=== PATIENT | female | born 1940 | race Caucasian/White ===

== ENCOUNTER 2016-06-29 18:45 | Emergency (ER) | payer MEDICARE, BC ==
[~2016-06-29] VITALS: Ht 160 cm; Wt 72.6 kg
[~2016-06-29 18:45] MED LIST: SULF1TAB24 PO
[2016-06-29 19:58] VITALS: BP 179/88
[2016-06-29] MEDS ORDERED: SULF1TAB24 PO (20:28)
[2016-06-29] MEDS ORDERED: MUPI15CR TP (20:28)
--- NOTE | 2016-06-29 20:28 | PHYS DOC ---
Past Medical History Past Medical History: COPD Past Surgical History: No Surgical History Smoking: Quit Greater Than 1 Year Alcohol Use: Occasionally Drug Use: None Adult General Chief Complaint Chief Complaint: SKIN PROBLEM HPI HPI Patient is a 76 year old pina who presents with abscess and cellulitis of the left nasolabial fold for 4 days. She states that she was plucking a nose hair from the left nare and pinched the skin. A few days later, she noticed swelling of the nare that extended down onto the nasolabial fold. She denies any drainage from the wound. She has not had any fevers. Her PCP is Dr. Loomis. Review of Systems Review of Systems Constitutional: Denies fever or chills. [] Eyes: Denies change in visual acuity, redness, or eye pain. [] HENT: Denies ear pain, nasal congestion or sore throat. [] Integument: Reports nasal and nasolabial fold abscess and cellulitis. Allergies Allergies Allergies Coded Allergies Type Severity Reaction Last Updated Verified No Known Drug Allergies 10/05/15 No Physical Exam Physical Exam Constitutional: Well developed, well nourished, no acute distress, non-toxic appearance. [] HENT: Normocephalic, atraumatic, bilateral external ears normal, oropharynx moist, no oral exudates. There is mild edema of the left septum intranasally with abscess of the left nasolabial fold and surrounding cellulitis of the upper lip. Eyes: PERRLA, EOMI, conjunctiva normal, no discharge. [] Skin: Warm, dry. There is a 2cm abscess of the left nasolabial fold with surrounding erythema of the left upper lip. Neurologic: Alert and oriented X 3, normal motor function, normal sensory function, no focal deficits noted. [] Psychologic: Affect normal, judgement normal, mood normal. [] Current Patient Data Vital Signs Vital Signs Date Time Temp Pulse Resp B/P Pulse Ox O2 Delivery O2 Flow Rate FiO2 06/29/16 19:58 98.1 97 16 93 Room Air 98.1 EKG EKG [] Radiology/Procedures Radiology/Procedures [] Course & Med Decision Making Course & Med Decision Making Pertinent Labs and Imaging studies reviewed. (See chart for details) [] Dragon Disclaimer Dragon Disclaimer This electronic medical record was generated, in whole or in part, using a voice recognition dictation system. Departure Departure Impression: Primary Impression: Nasal abscess Disposition: 01 HOME, SELF-CARE Condition: STABLE Referrals: JOHN LOOMIS MD (PCP) Patient Instructions: Abscess, [id number] Additional Instructions: You were seen for an abscess of the nose. Please complete all the prescribed antibiotics, even if your wound is improving. Please use the prescribed antibiotic ointment on the wound and in the left nostril twice daily. Please follow-up with your primary care doctor in the next 2-3 days for recheck of the wound, sooner if concerns. Return to the emergency department if you have any new or concerning symptoms. Scripts Mupirocin Calcium (Bactroban Cream)15 Gm Cream..g.1 Danelle TP TID #30 GM Prov:KENTON HESS 06/29/16 Sulfamethoxazole/Trimethoprim (Bactrim Ds Tablet)1 Each Tablet1 Tab PO BID #14 TAB Prov:KENTON HESS 06/29/16 KENTON HESS Jun 29, 2016 20:28
== END 2016-06-29 20:34 | disposition home or self-care (01) ==
LOC: ER 18:45
DX: J34.0 Abscess, furuncle and carbuncle of nose (principal); J44.9 Chronic obstructive pulmonary disease, unspecified; Z87.891 Personal history of nicotine dependence
CPT/HCPCS: 99283

== ENCOUNTER → 2016-10-12 | Outpatient (CLI) | payer MEDICARE, BC ==
[~2016-10-12] MED LIST changes: +MUPI15CR TP
--- NOTE | 2016-10-12 14:57 | RAD ---
Chest, 2 views, 10/12/2016: History: Bronchitis, cough Comparison is made to a study from 10/14/2011. There is hyperexpansion of lungs compatible with COPD. The heart size is normal. There are scattered linear scars. There is a calcified granuloma posteriorly in the left base. There is a new spiculated density projected over the right infrahilar region on the PA view. This is not clearly visualized on the lateral view but probably lies in the right middle lobe. No pleural fluid is seen. IMPRESSION: 1. Emphysema. 2. New right infrahilar pulmonary opacity raising the possibility of a neoplasm versus focal pneumonitis. CT scanning is suggested for further evaluation.
== END | disposition home or self-care (01) ==
LOC: RAD 11:03
PROVIDERS: ATTEND Internal Medicine
DX: J43.9 Emphysema, unspecified (principal)
CPT/HCPCS: 71020

== ENCOUNTER 2016-10-17 09:57 | Inpatient (IN) | payer MEDICARE, BC ==
[~2016-10-17] VITALS: Ht 160 cm; Wt 72.3 kg
[2016-10-17] MEDS ORDERED: 0.9 % SODIUM CHLORIDE 10 ML DISP.SYRIN. IV PRN (10:00)
[2016-10-17] MEDS ORDERED: FUROSEMIDE 40 MG/4 ML VIAL. ONE (10:05)
[2016-10-17 10:14] LABS: BASO # 0.1 x10^3/uL (0.0-0.2); BASO % 1 % (0-3); EOS % 0 % (0-3); HEMATOCRIT 43.1 % (36.0-47.0); HEMOGLOBIN 14.6 g/dL (12.0-15.5); LYMPH % 5 % (24-48); MEAN CORPUSCULAR HEMOGLOBIN 33 pg (25-35); MEAN CORPUSCULAR HGB CONC 34 g/dL (31-37); MEAN CORPUSCULAR VOLUME 97 fL (79-100); MONO % 3 % (0-9); NEUT % 91 % (31-73); PLATELET COUNT 316 x10^3/uL (140-400); RED BLOOD COUNT 4.44 x10^6/uL (3.50-5.40); RED CELL DISTRIBUTION WIDTH 13.6 % (11.5-14.5); WHITE BLOOD COUNT 19.1 x10^3/uL (4.0-11.0)
[2016-10-17] MEDS ORDERED: NITROGLYCERIN SUBLINGUAL 0.4 MG BOTTLE OF 25. SL PRN (10:15)
[2016-10-17] MEDS ORDERED: IV NORMAL SALINE 1000ML BAG 1,000 ML IV SCH (10:15)
[2016-10-17] MEDS: fentaNYL PF VIAL 100 MCG/2 ML VIAL IV PRN ×2 (10:15→13:36)
[2016-10-17 10:24] LABS: CREATININE 0.9 mg/dL (0.6-1.0); GFR 61.2; POTASSIUM 4.3 mmol/L (3.5-5.1)
[2016-10-17] MEDS ORDERED: FUROSEMIDE 40 MG/4 ML VIAL. IVP ONE (10:30)
[2016-10-17 10:31] LABS: ALBUMIN 4.6 g/dL (3.4-5.0); DIRECT BILIRUBIN 0.1 mg/dL (0.0-0.2); MAGNESIUM 2.1 mg/dL (1.8-2.4); TOTAL BILIRUBIN 0.7 mg/dL (0.2-1.0); TOTAL PROTEIN 8.6 g/dL (6.4-8.2)
[2016-10-17 10:33] LABS: % BASOS 1 % (0-3); PLT ESTIMATE ADEQUATE (ADEQUATE)
--- NOTE | 2016-10-17 10:43 | RAD ---
Indication chest pain. Shortness of breath. A single view of the chest was obtained. Comparison is made to an examination 10/12/2016. The suggested possible mass or abnormality in the infrahilar region on the right, on the prior examination, is not well reproduced on this study. The heart and pulmonary vessels are normal. Acute parenchymal infiltrate is not seen. Significant pleural fluid is not present. There is no pneumothorax. IMPRESSION: No acute finding in the chest. Possible pathology in the right infrahilar region suggested on the plain film examination 5 days ago is not well represented on this single plain film
--- NOTE | 2016-10-17 10:56 | PHYS DOC ---
Past Medical History Past Medical History: COPD Past Surgical History: No Surgical History Alcohol Use: Occasionally Drug Use: None Adult General Chief Complaint Chief Complaint: SHORTNESS OF BREATH ESHA BALBUENA Is a pleasant 76-year-old female with a history of COPD who presents with sudden onset of right-sided chest pain and severe shortness of breath and anxiety that began about 4:30 AM this morning. Her symptoms got progressively worse and she is beginning to cough up sputum that is described as strongly with chest wall pain is worse with movement of her chest wall. She's never had anything like this before she is very anxious only providing a very limited history based on the pain. She speaking in 6-8 word sentences with no obvious retractions. She is satting in the mid 80s upon arrival she is tripoding and is very anxious. Differential diagnosis: Acute myocardial ischemia, heart failure, cardiac tamponade, bronchospasm, pulmonary embolism, pneumothorax, pulmonary infection i.e. bronchitis or pneumonia, upper airway obstruction, anaphylaxis, aspiration , psychogenic, pulmonary contusion, toxidrome, pneumomediastinum, noncardiogenic pulmonary edema or ARDS, COPD, tuberculosis, cystic fibrosis, asthma, high altitude pulmonary edema, valvular dysfunction, cardiac dysrhythmia , stroke, neuromuscular diseases like myasthenia gravis gravis, ALS, Guillain- Matt syndrome, metabolic acidosis to include diabetic ketoacidosis, sepsis, and obstructive disorders like massive obesity seen upon arrival given her lung sound on immediate evaluation I believe that she might of been suffering from congestive heart failure and may have benefited from BiPAP. Review of Systems Review of Systems Patient is unable to provide review of systems at this time given her medical condition. Current Medications Current Medications Current Medications Medications (Trade) Dose Ordered Sig/Bert Start Time Stop Time Status Last Admin Dose Admin Albuterol/ Ipratropium (Duoneb) 3 ml 1X ONCE 10/17/16 11:15 10/17/16 11:16 DC Azithromycin 250 ml @ 250 mls/hr 1X ONCE 10/17/16 11:00 10/17/16 11:59 DC 10/17/16 10:59 250 MLS/HR Ceftriaxone Sodium 50 ml @ 100 mls/hr 1X ONCE 10/17/16 11:00 10/17/16 11:29 DC Fentanyl Citrate (Fentanyl 2ml Vial) 50 mcg PRN Q15MIN PRN 10/17/16 10:00 10/18/16 09:59 8/6/17 10:15 50 MCG Furosemide (Lasix) 80 mg 1X ONCE 10/17/16 10:30 10/17/16 10:31 DC 10/17/16 10:14 80 MG Hydromorphone HCl (Dilaudid) 1 mg 1X ONCE 10/17/16 11:00 10/17/16 11:01 DC 10/17/16 11:00 1 MG Info (Do NOT chart on this entry -- for MONITORING) 1 each PRN DAILY PRN 10/17/16 11:45 10/19/16 11:44 Iohexol (Omnipaque 300 Mg/ml) 75 ml 1X ONCE 10/17/16 11:45 10/17/16 11:46 DC 10/17/16 11:43 75 ML Lorazepam (Ativan) 1 mg 1X ONCE 10/17/16 11:00 10/17/16 11:01 DC 10/17/16 10:59 1 MG Methylprednisolone Sodium Succinate (SOLU-Medrol 125MG VIAL) 125 mg 1X ONCE 10/17/16 11:15 10/17/16 11:16 DC 10/17/16 12:18 125 MG Nitroglycerin (Nitrostat) 0.4 mg PRN Q5MIN PRN 10/17/16 10:15 Sodium Chloride (Normal Saline Flush) 10 ml QSHIFT PRN 10/17/16 10:00 Allergies Allergies Allergies Coded Allergies Type Severity Reaction Last Updated Verified No Known Drug Allergies 10/05/15 No Physical Exam Physical Exam Signs evaluated patient very tachycardic, hypoxic and hypertensive. She is also very tachypnea greater than 24 and very anxious. Constitutional: Well developed, well nourished, is obviously acute distress with severe diaphoresis speaking in 6-8 word sentences are anxious. HENT: Normocephalic, atraumatic, bilateral external ears normal, dry mucous membranes no oral exudates, nose normal. [] Eyes: PERRLA, EOMI, conjunctiva normal, no discharge. [] Neck: Normal range of motion, no tenderness, supple, no stridor. [] Cardiovascular sinus tachycardia with no murmurs gallops or rubs. Lungs & Thorax: Significantly decreased breath sounds on the right and left described as coarse and crackly. She has no retractions or accessory muscle use. Abdomen: Bowel sounds normal, soft, no tenderness, no masses, no pulsatile masses. [] Skin: Warm, skin is very diaphoretic no erythema no rash. Back: No tenderness, no CVA tenderness. [] Extremities: No tenderness, no cyanosis, no clubbing, ROM intact, no edema. No Homans sign. Neurologic: Alert and oriented X 3, normal motor function, normal sensory function, no focal deficits noted. [] Psychologic: Is very anxious she is asking for pain meds repeatedly. Current Patient Data Vital Signs Vital Signs Date Time Temp Pulse Resp B/P (MAP) Pulse Ox O2 Delivery O2 Flow Rate FiO2 10/17/16 11:00 34 10/17/16 10:25 95 BiPAP/CPAP 10/17/16 09:57 98.1 127 138/71 (93) 2.0 98.1 Lab Values Laboratory Tests Test 10/17/16 10:07 White Blood Count 19.1 x10^3/uL (4.0-11.0) H Red Blood Count 4.44 x10^6/uL (3.50-5.40) Hemoglobin 14.6 g/dL (12.0-15.5) Hematocrit 43.1 % (36.0-47.0) Mean Corpuscular Volume 97 fL (79-100) Mean Corpuscular Hemoglobin 33 pg (25-35) Mean Corpuscular Hemoglobin Concent 34 g/dL (31-37) Red Cell Distribution Width 13.6 % (11.5-14.5) Platelet Count 316 x10^3/uL (140-400) Neutrophils (%) (Auto) 91 % (31-73) H Lymphocytes (%) (Auto) 5 % (24-48) L Monocytes (%) (Auto) 3 % (0-9) Eosinophils (%) (Auto) 0 % (0-3) Basophils (%) (Auto) 1 % (0-3) Neutrophils # (Auto) 17.4 x10^3uL (1.8-7.7) H Lymphocytes # (Auto) 1.0 x10^3/uL (1.0-4.8) Monocytes # (Auto) 0.5 x10^3/uL (0.0-1.1) Eosinophils # (Auto) 0.1 x10^3/uL (0.0-0.7) Basophils # (Auto) 0.1 x10^3/uL (0.0-0.2) Segmented Neutrophils % 73 % (35-66) H Band Neutrophils % 18 % (0-9) H Lymphocytes % 2 % (24-48) L Monocytes % 5 % (0-10) Basophils % 1 % (0-3) Metamyelocytes % 1 % (0-0) H Platelet Estimate Adequate (ADEQUATE) Sodium Level 140 mmol/L (136-145) Potassium Level 4.3 mmol/L (3.5-5.1) Chloride Level 101 mmol/L (98-107) Carbon Dioxide Level 31 mmol/L (21-32) Anion Gap 8 (6-14) Blood Urea Nitrogen 15 mg/dL (7-20) Creatinine 0.9 mg/dL (0.6-1.0) Estimated GFR (Cockcroft-Gault) 61.2 Glucose Level 113 mg/dL (70-99) H Calcium Level 9.0 mg/dL (8.5-10.1) Magnesium Level 2.1 mg/dL (1.8-2.4) Total Bilirubin 0.7 mg/dL (0.2-1.0) Direct Bilirubin 0.1 mg/dL (0.0-0.2) Aspartate Amino Transferase (AST) 25 U/L (15-37) Alanine Aminotransferase (ALT) 35 U/L (14-59) Alkaline Phosphatase 62 U/L (46-116) Creatine Kinase 173 U/L (26-192) Creatine Kinase MB (Mass) 1.0 ng/mL (0.0-3.6) Creatine Kinase MB Relative Index 0.6 % (0-4) Troponin I Quantitative < 0.017 ng/mL (0.000-0.055) GW-Khj-G-Type Natriuretic Peptide 366 pg/mL (0-124) H Total Protein 8.6 g/dL (6.4-8.2) H Albumin 4.6 g/dL (3.4-5.0) Lipase 79 U/L (73-393) Thyroid Stimulating Hormone (TSH) 2.134 uIU/mL (0.358-3.74) Laboratory Tests 10/17/16 10:07 Laboratory Tests 10/17/16 10:07 EKG EKG [] EKG timed 10:[address] Hahn demonstrates heart rate of 121 normal sinus rhythm tachycardia with left atrial enlargement based on P wave morphology. Patient's GA interval is normal at 96 patient's QRS width is normal at 76 patient's QTc is normal at 443. This is an otherwise normal EKG with no ischemic changes Radiology/Procedures Radiology/Procedures [] [facility] [address] [place], [place] [id number] IMAGING REPORT Signed PATIENT: CHRISS MUKHERJEE ACCOUNT: [id number] : 1940 LOCATION: ER AGE: 76 SEX: F EXAM STATUS: PRE ER ORD. PHYSICIAN: SIMEON HAHN MD REASON: chest pain PROCEDURE: PORTABLE CHEST 1V Indication chest pain. Shortness of breath. A single view of the chest was obtained. Comparison is made to an examination 10/12/2016. The suggested possible mass or abnormality in the infrahilar region on the right, on the prior examination, is not well reproduced on this study. The heart and pulmonary vessels are normal. Acute parenchymal infiltrate is not seen. Significant pleural fluid is not present. There is no pneumothorax. IMPRESSION: No acute finding in the chest. Possible pathology in the right infrahilar region suggested on the plain film examination 5 days ago is not well represented on this single plain film DICTATED and SIGNED BY: ANGY LAMBERT MD DATE: 10/17/16 1038 CC: SIMEON HAHN MD; MANDIE HACKETT MD ~ [address] [place] [address] IMAGING REPORT Signed PATIENT: CHRISS MUKHERJEE ACCOUNT: [id number] : 1940 LOCATION: ER AGE: 76 SEX: F EXAM STATUS: REG ER ORD. PHYSICIAN: SIMEON HAHN MD REASON: chest pain with ?? mass versus infiltrate PROCEDURE: CT ANGIOGRAPHY CHEST Indication chest pain. Shortness of breath. Axial images were obtained through the chest. Examination was to be tailored for the detection of pulmonary embolus. Note is made of a previous noncontrast examination 02/15/2013. 75 cc of Omnipaque 300 was administered intravenously. MIP images were generated and reviewed. Imaging through the upper abdomen is unremarkable. The thoracic aorta appears normal. There is no significant hilar or mediastinal adenopathy. The study is negative for pulmonary embolus. There is pathology in the right middle lobe compatible with that seen on the plain film examination 10/12/2026. The appearance is most compatible with scarring or atelectasis although an acute inflammatory component is not entirely excluded. There are several air bronchograms running through the process and neoplastic disease is felt unlikely but follow-up imaging is advised. There is, additionally, an infiltrate, suspect for pneumonia, in the right lower lobe. There are some underlying emphysematous changes. There is some scarring in the right upper lobe similar to the previous CT examination 02/15/2013. Some scarring is present in the right lower lobe. There is a densely calcified granuloma at the left lung base. A dominant soft tissue mass in either lung is not seen. IMPRESSION: Negative study for pulmonary embolus. The abnormality in the right hemithorax seen on the examination 10/12/2016 is likely a function of chronic scarring or atelectasis although an acute inflammatory component in the right middle lobe is not entirely excluded. The appearance would be very atypical for neoplastic disease. Continued follow-up advised. Underlying emphysematous changes. Patchy infiltrate in the right lower lobe suspect for pneumonia. PQRS Compliance Statement: One or more of the following individualized dose reduction techniques were utilized for this examination: 1. Automated exposure control 2. Adjustment of the mA and/or kV according to patient size 3. Use of iterative reconstruction technique DICTATED and SIGNED BY: ANGY LAMBERT MD DATE: 10/17/16 1214 CC: SIMEON HAHN MD; MANDIE HACKETT MD ~ Course & Med Decision Making Course & Med Decision Making Pertinent Labs and Imaging studies reviewed. (See chart for details) Initially presented with shortness of breath or severe chest wall pain after coughing and Hypoxia. She has a history of COPD without history of congestive heart failure or heart disease. Patient's breath sounds initially on the right wrist diminished with significant rhonchi and crackles. My initial assessment was possible congestive heart failure on the left side with no evidence of right -sided heart failure. Patient was immediately treated with Solu-Medrol and DuoNeb's as well as given Ativan and fentanyl for her pain and anxiety. She is placed initially on BiPAP. ABG was completed at 10:33 AM respiratory therapy times his speech is 7.37 PCO2 43 PO2 95 bicarbonate 24 base excess of -0.8 saturations of 97% on oxygen provided to the BiPAP machine. Is now 10:45 AM She continues to be short of breath and very anxious will be giving another dose of Dilaudid and Ativan. Patient's chest x-ray reviewed by me demonstrates questionable infiltrate in the right lower and middle lungs which may either represent cephalization or infection. There is no obvious signs of pneumothorax or rib fracture. He was reviewed and reread by radiology. Given the findings there and her acute shortness of breath I will complete a CAT scan of the chest. Differential diagnosis is now in excluding pneumothorax, pneumonitis, perforated abdomen. I will complete a CT of the chest to rule out infiltrate versus COPD exacerbation. We have prepared to intubate this patient and she is given his permission if necessary if she because in respiratory failure. Does demonstrate a white count of 19,000 with left shift which likely indicative of either stress or possible infection the lung. She will have blood cultures and appropriate antibiotics initiated at this time as well as lactic acid. Patient tells me that their symptoms given during CC are improved. We reviewed labs and radiology reports with patient and any family at bedside. She is asleep at this time feeling markedly better satting 98% on 2 L nasal cannula was pleuritic chest pain his arms completely resolved and she is listener comfortably reading it all times a minute. [employer] note: Primary care doctor [employer] called at of the service called at 12:42 PM Consult called back at 12:46 PM Discussed the case I presented and they agreed with admission. Time of acceptance of 12:46 AM Differential diagnosis: Acute myocardial ischemia, heart failure, cardiac tamponade, bronchospasm, pulmonary embolism, pneumothorax, pulmonary infection i.e. bronchitis or pneumonia, upper airway obstruction, anaphylaxis, aspiration , psychogenic, pulmonary contusion, toxidrome, pneumomediastinum, noncardiogenic pulmonary edema or ARDS, COPD, tuberculosis, cystic fibrosis, asthma, high altitude pulmonary edema, valvular dysfunction, cardiac dysrhythmia , stroke, neuromuscular diseases like myasthenia gravis gravis, ALS, Guillain- Matt syndrome, metabolic acidosis to include diabetic ketoacidosis, sepsis, and obstructive disorders like massive obesity. Upon arrival given patient's agitation and hypoxia my concern was hypoxia causing encephalopathy or acute psychosis secondary to hypoxia. Patient's symptoms markedly improved with above interventions. She is received antibiotics and repeat supportive medications to treat her suspected pneumonia. Although her pro BNP is mildly elevated troponin is negative. She is lactic acid is still pending at this time although she was received appropriate therapy including fluids and antibiotics. I spent approximately 45-50 minutes working and engaged directly in the patient care providing critical care evaluation this includes but not limited to time spent engaged in work directly related to the individual patients care. I spent time at the bedside, reviewing test results, discussing the case with staff, documenting the medical record and time spent with EMS discussing specific treatment issues when the patient presented and during his evaluation. Impression: COPD exacerbation, pleuritic chest pain, pneumonia, hypoxia, anxiety leukocytosis Dragon Disclaimer Dragon Disclaimer This electronic medical record was generated, in whole or in part, using a voice recognition dictation system. Departure Departure Impression: Primary Impression: Chest pain Additional Impressions: COPD (chronic obstructive pulmonary disease) Anxiety Hypoxia Pneumonia Disposition: ADMITTED INPATIENT Admitting Physician: Mandie Hackett Condition: GUARDED Referrals: MANDIE HACKETT MD (PCP) Problem Qualifiers SIMEON HAHN MD Oct 17, 2016 10:56
[2016-10-17] MEDS ORDERED: AZITHRMYCN 500MG IVPB FOR OMNI 250 ML IV ONE (11:00)
[2016-10-17] MEDS ORDERED: HYDROmorphone 2 MG/ML VIAL IV ONE (11:00)
[2016-10-17] MEDS ORDERED: IPRATRPIUM/ALBUTEROL 0.5/2.5MG 3 ML NEBU. NEB ONE (11:15)
[2016-10-17] MEDS ORDERED: methylPREDNISolone SOD SUCC PF 125 MG/2 ML VIAL. IV ONE (11:15)
[2016-10-17] MEDS ORDERED: CONTRAST GIVEN MC PRN (11:45)
[2016-10-17] MEDS ORDERED: IOHEXOL 300 MG/ML 75 ML VIAL IV ONE (11:45)
--- NOTE | 2016-10-17 11:47 | EKG ---
[facility] [address] [place] [address] Test Date: 2016-10-17 Test Time: 10:07:32 Pat Name: CHRISS MUKHERJEE Department: Room: Gender: F Nut Former: : 1940 Requested By: SIMEON HAHN Order Number: [id number] Reading MD: Brenden Sainz Measurements Intervals [place] Rate: 121 P: 55 [place]: 96 QRS: 66 QRSD: 76 T: 47 QT: 310 QTc: 443 Interpretive Statements SINUS TACHYCARDIA LEFT ATRIAL ABNORMALITY RI6.01 Unconfirmed report Compared to ECG 10/14/2011 11:55:23 Atrial abnormality now present Sinus rhythm no longer present Electronically Signed On 10-17-2016 13:26:56 CDT by Brenden Sainz
--- NOTE | 2016-10-17 12:28 | RAD ---
Indication chest pain. Shortness of breath. Axial images were obtained through the chest. Examination was to be tailored for the detection of pulmonary embolus. Note is made of a previous noncontrast examination 02/15/2013. 75 cc of Omnipaque 300 was administered intravenously. MIP images were generated and reviewed. Imaging through the upper abdomen is unremarkable. The thoracic aorta appears normal. There is no significant hilar or mediastinal adenopathy. The study is negative for pulmonary embolus. There is pathology in the right middle lobe compatible with that seen on the plain film examination 10/12/2026. The appearance is most compatible with scarring or atelectasis although an acute inflammatory component is not entirely excluded. There are several air bronchograms running through the process and neoplastic disease is felt unlikely but follow-up imaging is advised. There is, additionally, an infiltrate, suspect for pneumonia, in the right lower lobe. There are some underlying emphysematous changes. There is some scarring in the right upper lobe similar to the previous CT examination 02/15/2013. Some scarring is present in the right lower lobe. There is a densely calcified granuloma at the left lung base. A dominant soft tissue mass in either lung is not seen. IMPRESSION: Negative study for pulmonary embolus. The abnormality in the right hemithorax seen on the examination 10/12/2016 is likely a function of chronic scarring or atelectasis although an acute inflammatory component in the right middle lobe is not entirely excluded. The appearance would be very atypical for neoplastic disease. Continued follow-up advised. Underlying emphysematous changes. Patchy infiltrate in the right lower lobe suspect for pneumonia. PQRS Compliance Statement: One or more of the following individualized dose reduction techniques were utilized for this examination: 1. Automated exposure control 2. Adjustment of the mA and/or kV according to patient size 3. Use of iterative reconstruction technique
[2016-10-17] MEDS ORDERED: ACETAMINOPHEN 325 MG TABLET. PO PRN (13:00)
[2016-10-17] MEDS ORDERED: IV NORMAL SALINE 1000ML BAG 1,000 ML IV ONE (13:00)
[2016-10-17] MEDS ORDERED: ONDANSETRON PF 4 MG/2 ML VIAL. IV PRN (13:00)
[2016-10-17 13:14] LABS: BILIRUBIN,URINE NEGATIVE (NEG); GLUCOSE,URINE NEGATIVE (NEG); NITRITE,URINE NEGATIVE (NEG); PROTEIN,URINE NEGATIVE (NEG-TRACE); UROBILINOGEN,URINE 0.2 mg/dL (0.2 mg/dL)
[2016-10-17 13:25] LABS: BACTERIA,URINE FEW /HPF (0-FEW); RBC,URINE 0 /HPF (0-2)
[2016-10-17 15:00] VITALS: BP 121/68
[2016-10-17] MEDS: MORPHINE SULFATE 4 MG/ML DISP.SYRIN. IV PRN ×3 (15:03→22:49)
--- NOTE | 2016-10-17 15:24 | PDOC ---
Provider Note Provider Note Pt seen .H&P dictated. #[id number] JOHN HACKETT MD Oct 17, 2016 15:24
[2016-10-17] MEDS ORDERED: ALBUTEROL SULFATE 2.5 MG/3 ML NEBU. NEB PRN (15:30)
[2016-10-17] MEDS: HYDROcodone/APAP 10/325 1 TAB TABLET PO PRN (16:08)
[2016-10-17] MEDS: methylPREDNISolone SOD SUCC PF 125 MG/2 ML VIAL. IV SCH ×2 (16:08→21:15)
[2016-10-17] MEDS: IV NORMAL SALINE 1000ML BAG 1,000 ML IV SCH ×2 (16:09→22:53)
[2016-10-17] MEDS: IPRATRPIUM/ALBUTEROL 0.5/2.5MG 3 ML NEBU. NEB SCH ×2 (16:12→19:18)
--- NOTE | 2016-10-17 16:16 | HP ---
ADMIT DATE: 10/17/2016 LOCATION: #258. REASON FOR ADMISSION TO THE HOSPITAL: Shortness of breath, pneumonia. HISTORY OF PRESENT ILLNESS: The patient is a 76-year-old female patient, well-known to me, who has chronic COPD on inhalers and she was in the hospital probably 5 years ago with major pneumonia. Otherwise, she gets sick once or twice with bronchitis, and she was doing relatively well until yesterday. She went out with her daughter. She was fine, and this morning, she woke up with feeling lousy, cough, and shortness of breath as well as pain in the right side of the chest and came to the Emergency Room, where she was found to have pneumonia with rt side pleurisy and was admitted to the hospital. White count went up to 18,000 and was given antibiotics and was admitted to the hospital. PAST MEDICAL HISTORY: History of COPD, osteoporosis, anxiety, and depression. PAST SURGICAL HISTORY: History of pneumonia 5 years ago. SURGERIES: No major surgeries. ALLERGIES: No known drug allergies. MEDICATIONS: At home, she is on Ventolin, Symbicort, calcium with vitamin D, Actonel, and also on Lipitor for cholesterol. PERSONAL HISTORY: Smoked for probably 50 years, quit 5 years ago. Denies alcohol or drug abuse. SOCIAL HISTORY: Lives at home, very active. Her sister recently . REVIEW OF SYSTEMS: As mentioned; however has been feeling well until yesterday. This morning, has cough, wheezing pain, and does not feel good. PHYSICAL EXAMINATION: GENERAL: The patient looks sicker and ill. VITAL SIGNS: Temperature 98, pulse 127, respirations 34, blood pressure 138/71, and 92% nasal cannula. Was placed on BiPAP for a short period. HEENT: Head is atraumatic. Pupils equal. Oral cavity with slight congestion Dentures present. NECK: Supple. Thyroid not enlarged, not elevated. CHEST: Symmetrical. Bilateral wheezing anterior and posterior lungs, both inspiratory and expiratory. ABDOMEN: Soft, no mass palpable. EXTERNAL GENITALIA: No Gomez. RECTAL: Deferred. EXTREMITIES: No calf tenderness, no edema. NEUROLOGIC: Cranial nerves are intact. Power 5/5 in the extremities. LABORATORY DATA: Shows a white count of 19, hemoglobin 14, and platelets 316. Electrolytes show sodium 140, potassium 4.3, chloride 101, bicarbonate 31, BUN 15, creatinine 0.1, glucose 113, and lactic acid 2.1. LFTs were normal. Troponin 0.017. TSH was normal. Lipase 79. Chest x-ray - no acute findings, possible infiltrates in the right lung. CT angiogram of the chest shows negative for PE, chronic scarring, right middle lobe infiltrates, underlying emphysema in the right lower lobe, suspect pneumonia. FINAL IMPRESSION: 1. Community-acquired pneumonia. 2. Chronic obstructive pulmonary disease with acute exacerbation. 3. History of smoking for many years, quit 5 years ago. 4. Anxiety. 5. Depression. 6. Hyperlipidemia. 7. Sepsis with lactic acidosis PLAN: At this time, admit to hospital, sputum culture, blood culture, started on broad-spectrum Zithromax and Rocephin. Pulmonary consult, IV Solu-Medrol, IV fluids, DuoNeb 4 times daily, and resume home medications and see how the patient's condition improves. DVT prevention with SCDs and Lovenox. JOHN HACKETT MD DR: SHRUTHI/zander JOB#: [id number] / [id number] SHANIQUA
[2016-10-17 18:41] VITALS: BP 121/68
[2016-10-17] MEDS ORDERED: ALPR0.25 PO (19:12)
[2016-10-17] MEDS ORDERED: SIMV40TA3 PO (19:29)
[2016-10-17] MEDS ORDERED: PNV1TABL25 PO (19:29)
[2016-10-17] MEDS ORDERED: CALC-77 PO (19:29)
[2016-10-17] MEDS ORDERED: ACET325T9 PO (19:29)
[2016-10-17] MEDS ORDERED: DIPH25CA58 PO (19:29)
[2016-10-17 19:30] VITALS: BP 126/69
[2016-10-17] MEDS ORDERED: PROAIR HFA8.5 GM INH (19:31)
[2016-10-17] MEDS ORDERED: HYDR-2758 PO (19:31)
[2016-10-17] MEDS: ENOXAPARIN 40 MG/0.4 ML SYRINGE. SQ SCH (21:15)
[2016-10-17 22:47] VITALS: BP 109/62
[2016-10-18] MEDS: fentaNYL PF VIAL 100 MCG/2 ML VIAL IV PRN (00:50)
[2016-10-18] MEDS ORDERED: diphenhydrAMINE HCL 25 MG CAPSULE PO PRN (01:15)
[2016-10-18] MEDS ORDERED: SODIUM CHLORIDE 0.65% NASAL SPRAY 45ML BOTTLE. NS PRN (01:15)
[2016-10-18] MEDS: ALPRAZolam 0.25 MG TABLET PO PRN ×3 (01:22→17:25)
[2016-10-18 03:30] VITALS: BP 115/71
[2016-10-18 04:46] LABS: BASO # 0.2 x10^3/uL (0.0-0.2); BASO % 1 % (0-3); EOS % 0 % (0-3); HEMATOCRIT 34.1 % (36.0-47.0); HEMOGLOBIN 11.2 g/dL (12.0-15.5); LYMPH # 0.8 x10^3/uL (1.0-4.8); LYMPH % 3 % (24-48); MEAN CORPUSCULAR HEMOGLOBIN 33 pg (25-35); MEAN CORPUSCULAR HGB CONC 33 g/dL (31-37); MEAN CORPUSCULAR VOLUME 99 fL (79-100); MONO % 2 % (0-9); NEUT % 94 % (31-73); PLATELET COUNT 238 x10^3/uL (140-400); RED BLOOD COUNT 3.45 x10^6/uL (3.50-5.40); RED CELL DISTRIBUTION WIDTH 13.8 % (11.5-14.5); WHITE BLOOD COUNT 22.8 x10^3/uL (4.0-11.0)
[2016-10-18 05:01] LABS: CALCIUM 8.3 mg/dL (8.5-10.1); CREATININE 0.7 mg/dL (0.6-1.0); GFR 81.8; POTASSIUM 3.9 mmol/L (3.5-5.1)
[2016-10-18 05:02] LABS: CHOLESTEROL/HDL RATIO 1.9
[2016-10-18] MEDS: methylPREDNISolone SOD SUCC PF 125 MG/2 ML VIAL. IV SCH ×2 (05:40→20:54)
[2016-10-18] MEDS: MORPHINE SULFATE 4 MG/ML DISP.SYRIN. IV PRN ×3 (05:50→11:23)
[2016-10-18] MEDS: IPRATRPIUM/ALBUTEROL 0.5/2.5MG 3 ML NEBU. NEB SCH ×4 (06:07→19:57)
[2016-10-18] MEDS: HYDROcodone/APAP 10/325 1 TAB TABLET PO PRN ×3 (06:08→19:55)
[2016-10-18 07:00] VITALS: BP 122/73
--- NOTE | 2016-10-18 10:32 | PDOC ---
PROGRESS NOTES Subjective Subjective feeling much better today Objective Objective Vital Signs Date Time Temp Pulse Resp B/P (MAP) Pulse Ox O2 Delivery O2 Flow Rate FiO2 10/18/16 08:36 95 Nasal Cannula 3.0 10/18/16 08:06 22 10/18/16 07:00 97.7 94 122/73 (89) 97.7 Intake and Output 10/18/16 07:00 Intake Total 1550 ml Output Total 1700 ml Balance -150 ml Intake Oral 150 ml IV Total 1300 ml Other 100 ml Output Urine Total 1700 ml # Voids 1 Physical Exam Abdomen: Normal bowel sounds, Soft Heart: Regular rate, Normal S1, Normal S2 Extremities: No clubbing General: Alert HEENT: Atraumatic Lungs: Other (wheezing rt lung) Neck: Supple Neuro: Normal speech Psych/Mental Status: Mental status NL Skin: No breakdown Diagnosis Problem List Problems Medical Problems: (1) Anxiety Status: Acute (2) Chest pain Status: Acute (3) COPD (chronic obstructive pulmonary disease) Status: Acute (4) Hypoxia Status: Acute (5) Pneumonia Status: Acute Assessment Assessment Problems Medical Problems: (1) Anxiety Status: Acute (2) Chest pain Status: Acute (3) COPD (chronic obstructive pulmonary disease) Status: Acute (4) Hypoxia Status: Acute (5) Pneumonia Status: Acute FINAL IMPRESSION: 1. Community-acquired pneumonia. 2. Chronic obstructive pulmonary disease with acute exacerbation. 3. History of smoking for many years, quit 5 years ago. 4. Anxiety. 5. Depression. 6. Hyperlipidemia. 7. Sepsis with lactic acidosis PLAN: clinically improving. repeat cxr today. sputum gram neg. IV antibiotics. duoneb qid+prn. At this time, admit to hospital, sputum culture, blood culture, started on broad-spectrum Zithromax and Rocephin. Pulmonary consult, IV Solu-Medrol, IV fluids, DuoNeb 4 times daily, and resume home medications and see how the patient's condition improves. DVT prevention with SCDs and Lovenox. Problems: Plan Plan of Care Problems Medical Problems: (1) Anxiety Status: Acute (2) Chest pain Status: Acute (3) COPD (chronic obstructive pulmonary disease) Status: Acute (4) Hypoxia Status: Acute (5) Pneumonia Status: Acute Comment Review of Relevant I have reviewed the following items loree (where applicable) has been applied. Labs Laboratory Tests Test 10/17/16 13:04 10/17/16 13:49 10/17/16 19:10 10/18/16 00:40 Urine Collection Type Unknown Urine Color Yellow Urine Clarity Clear Urine pH 6.0 Urine Specific Dauphin 1.020 Urine Protein Negative mg/dL (NEG-TRACE) Urine Glucose (UA) Negative mg/dL (NEG) Urine Ketones (Stick) Negative mg/dL (NEG) Urine Blood Negative (NEG) Urine Nitrite Negative (NEG) Urine Bilirubin Negative (NEG) Urine Urobilinogen Dipstick 0.2 mg/dL (0.2 mg/dL) Urine Leukocyte Esterase Small (NEG) Urine RBC 0 /HPF (0-2) Urine WBC 5-10 /HPF (0-4) Urine Bacteria Few /HPF (0-FEW) Urine Hyaline Casts Few /HPF Urine Mucus Slight /LPF Lactic Acid Level 2.1 mmol/L (0.4-2.0) Troponin I Quantitative < 0.017 ng/mL (0.000-0.055) < 0.017 ng/mL (0.000-0.055) Thyroid Stimulating Hormone (TSH) 0.691 uIU/mL (0.358-3.74) Test 10/18/16 04:35 White Blood Count 22.8 x10^3/uL (4.0-11.0) Red Blood Count 3.45 x10^6/uL (3.50-5.40) Hemoglobin 11.2 g/dL (12.0-15.5) Hematocrit 34.1 % (36.0-47.0) Mean Corpuscular Volume 99 fL (79-100) Mean Corpuscular Hemoglobin 33 pg (25-35) Mean Corpuscular Hemoglobin Concent 33 g/dL (31-37) Red Cell Distribution Width 13.8 % (11.5-14.5) Platelet Count 238 x10^3/uL (140-400) Neutrophils (%) (Auto) 94 % (31-73) Lymphocytes (%) (Auto) 3 % (24-48) Monocytes (%) (Auto) 2 % (0-9) Eosinophils (%) (Auto) 0 % (0-3) Basophils (%) (Auto) 1 % (0-3) Neutrophils # (Auto) 21.5 x10^3uL (1.8-7.7) Lymphocytes # (Auto) 0.8 x10^3/uL (1.0-4.8) Monocytes # (Auto) 0.4 x10^3/uL (0.0-1.1) Eosinophils # (Auto) 0.0 x10^3/uL (0.0-0.7) Basophils # (Auto) 0.2 x10^3/uL (0.0-0.2) Sodium Level 142 mmol/L (136-145) Potassium Level 3.9 mmol/L (3.5-5.1) Chloride Level 105 mmol/L (98-107) Carbon Dioxide Level 29 mmol/L (21-32) Anion Gap 8 (6-14) Blood Urea Nitrogen 13 mg/dL (7-20) Creatinine 0.7 mg/dL (0.6-1.0) Estimated GFR (Cockcroft-Gault) 81.8 Glucose Level 175 mg/dL (70-99) Lactic Acid Level 1.7 mmol/L (0.4-2.0) Calcium Level 8.3 mg/dL (8.5-10.1) Triglycerides Level 50 mg/dL (0-150) Cholesterol Level 145 mg/dL (0-200) LDL Cholesterol, Calculated 57 mg/dL (0-100) VLDL Cholesterol, Calculated 10 mg/dL (0-40) Non-HDL Cholesterol Calculated 67 mg/dL (0-129) HDL Cholesterol 78 mg/dL (40-60) Cholesterol/HDL Ratio 1.9 Thyroid Stimulating Hormone (TSH) 0.683 uIU/mL (0.358-3.74) Medications Current Medications Acetaminophen (Tylenol) 650 mg PRN Q4HRS PRN PO FEVER Last administered on 15:02; Start 10/17/16 at 13:00; Stop 10/18/16 at 12:59 Acetaminophen/ Hydrocodone Bitart (Lortab 10325) 1 tab PRN Q6HRS PRN PO PAIN Last administered on 10/18/16 06:08; Start 10/17/16 at 15:15 Albuterol Sulfate (Ventolin Neb Soln) 2.5 mg PRN QID PRN NEB WHEEZING; Start at 15:30 Albuterol/ Ipratropium (Duoneb) 3 ml 1X ONCE NEB ; Start 10/17/16 at 11:15; Stop 10/17/16 at 11:16; Status DC Albuterol/ Ipratropium (Duoneb) 3 ml RTQID NEB Last administered on 10/18/16 06 :07; Start 10/17/16 at 16:00; Stop 10/18/16 at 15:59 Alprazolam (Xanax) 0.25 mg PRN Q8HRS PRN PO ANXIETY / AGITATION Last administered on 10/18/16 09:26; Start 10/18/16 at 01:15 Azithromycin 250 ml @ 250 mls/hr 1X ONCE IV Last administered on 10/17/16 10: 59; Start 10/17/16 at 11:00; Stop 10/17/16 at 11:59; Status DC Azithromycin 500 mg/Sodium Chloride 250 ml @ 250 mls/hr Q24H IV ; Start at 12:00 Ceftriaxone Sodium 1 gm/ Sodium Chloride 50 ml @ 100 mls/hr Q24H IV ; Start 10/18/16 at 12:00 Ceftriaxone Sodium 50 ml @ 100 mls/hr 1X ONCE IV Last administered on 12:58; Start 10/17/16 at 11:00; Stop 10/17/16 at 11:29; Status DC Diphenhydramine HCl (Benadryl) 25 mg PRN QHS PRN PO INSOMNIA Last administered on 10/18/16 01:22; Start 10/18/16 at 01:15 Enoxaparin Sodium (Lovenox 40mg Syringe) 40 mg Q24H SQ Last administered on 10/17 21:15; Start 10/17/16 at 21:00 Hydromorphone HCl (Dilaudid) 1 mg 1X ONCE IV Last administered on 10/17/16 11: 00; Start 10/17/16 at 11:00; Stop 10/17/16 at 11:01; Status DC Info (Do NOT chart on this entry -- for MONITORING) 1 each PRN DAILY PRN MC SEE COMMENTS; Start 10/17/16 at 11:45; Stop 10/19/16 at 11:44 Iohexol (Omnipaque 300 Mg/ml) 75 ml 1X ONCE IV Last administered on 10/17/16 11:43; Start 10/17/16 at 11:45; Stop 10/17/16 at 11:46; Status DC Lorazepam (Ativan) 1 mg 1X ONCE IV Last administered on 10/17/16 10:59; Start 10/17/16 at 11:00; Stop 10/17/16 at 11:01; Status DC Methylprednisolone Sodium Succinate (SOLU-Medrol 125MG VIAL) 125 mg 1X ONCE IV Last administered on 10/17/16 12:18; Start 10/17/16 at 11:15; Stop 10/17/16 at 11:16; Status DC Methylprednisolone Sodium Succinate (SOLU-Medrol 125MG VIAL) 125 mg Q8HRS IV Last administered on 10/18/16 05:40; Start 10/17/16 at 15:15 Morphine Sulfate 2 mg PRN Q1HR PRN IV PAIN; Start 10/17/16 at 17:45 Morphine Sulfate 4 mg PRN Q2HR PRN IV PAIN Last administered on 10/18/16 08:06 ; Start 10/17/16 at 13:00; Stop 10/18/16 at 12:59 Ondansetron HCl (Zofran) 4 mg PRN Q8HRS PRN IV NAUSEA/VOMITING; Start 10/17/16 at 13:00; Stop 10/18/16 at 12:59 Sodium Chloride 1,000 ml @ 100 mls/hr Q10H IV Last administered on 10/17/16 22 :53; Start 10/17/16 at 16:00 Sodium Chloride 1,000 ml @ 1,000 mls/hr 1X ONCE IV Last administered on 12:59; Start 10/17/16 at 13:00; Stop 10/17/16 at 13:59; Status DC Sodium Chloride (Saline Mist Nasal) 1 yong PRN Q1HR PRN NS NASAL CONGESTION Last administered on 10/18/16 01:22; Start 10/18/16 at 01:15 Vitals/I & O Vital Sign - Last 24 Hours 10/17/16 10/17/16 10/17/16 10/17/16 10:45 11:00 11:00 11:15 Pulse 114 116 104 Resp 34 34 36 17 B/P (MAP) 125/58 (80) 95/57 (70) 78/49 (59) Pulse Ox 96 95 95 10/17/16 10/17/16 10/17/16 10/17/16 11:30 11:30 12:00 12:30 Pulse 102 92 92 Resp 18 22 13 13 B/P (MAP) 82/50 (61) 104/53 (70) 97/54 (68) Pulse Ox 94 98 98 10/17/16 10/17/16 10/17/16 10/17/16 12:45 13:30 13:36 15:00 Temp 97.8 97.8 Pulse 92 100 66 Resp 15 39 20 20 B/P (MAP) 107/62 (77) 129/88 (102) 121/68 (85) Pulse Ox 97 95 95 O2 Delivery Nasal Cannula O2 Flow Rate 3.0 10/17/16 10/17/16 10/17/16 10/17/16 15:03 16:08 16:12 18:24 Resp 24 20 Pulse Ox 95 92 O2 Delivery Nasal Cannula Nasal Cannula O2 Flow Rate 3.0 3.0 3.0 10/17/16 10/17/16 10/17/16 10/17/16 18:41 19:20 19:22 19:30 Temp 97.8 97.9 97.8 97.9 Pulse 66 94 Resp 20 20 26 B/P (MAP) 121/68 (85) 126/69 (88) Pulse Ox 95 95 96 O2 Delivery Nasal Cannula Nasal Cannula Nasal Cannula Nasal Cannula O2 Flow Rate 3.0 3.0 3.0 3.0 10/17/16 10/17/16 10/17/16 10/18/16 19:59 22:47 22:49 00:50 Temp 98.5 98.5 Pulse 93 Resp 20 20 20 B/P (MAP) 109/62 (78) Pulse Ox 93 93 94 O2 Delivery Nasal Cannula Nasal Cannula Nasal Cannula Nasal Cannula O2 Flow Rate 2.0 1.0 1.0 2.0 10/18/16 10/18/16 10/18/16 10/18/16 01:20 03:30 05:50 06:07 Temp 98.1 98.1 Pulse 87 Resp 20 21 20 B/P (MAP) 115/71 (86) Pulse Ox 96 95 95 O2 Delivery Nasal Cannula Nasal Cannula Nasal Cannula Nasal Cannula O2 Flow Rate 2.0 3.0 2.0 2.0 10/18/16 10/18/16 10/18/16 10/18/16 06:08 06:20 07:00 07:08 Temp 97.7 97.7 Pulse 94 Resp 18 20 24 22 B/P (MAP) 122/73 (89) Pulse Ox 92 95 O2 Delivery Nasal Cannula Room Air Nasal Cannula O2 Flow Rate 2.0 3.0 10/18/16 10/18/16 08:06 08:36 Resp 22 Pulse Ox 95 O2 Delivery Nasal Cannula Nasal Cannula O2 Flow Rate 3.0 3.0 Intake and Output 10/17/16 10/17/16 10/18/16 15:00 23:00 07:00 Intake Total 1300 ml 250 ml 0 ml Output Total 550 ml 1150 ml Balance 1300 ml -300 ml -1150 ml JOHN HACKETT MD Oct 18, 2016 10:32
[2016-10-18 10:44] VITALS: BP 116/64
[2016-10-18] MEDS: IV NORMAL SALINE 1000ML BAG 1,000 ML IV SCH ×2 (11:24→21:37)
[2016-10-18] MEDS ORDERED: AZITHROMYCIN 500 MG in IV NORMAL SALINE 250ML 250 ML IV SCH (12:00)
[2016-10-18] MEDS ORDERED: methylPREDNISolone SOD SUCC PF 125 MG/2 ML VIAL. IV SCH (14:00)
[2016-10-18] MEDS: MORPHINE SULFATE 2 MG/ML DISP.SYRIN. IV PRN ×4 (14:31→22:42)
--- NOTE | 2016-10-18 14:39 | RAD ---
Indication pneumonia. Difficulty breathing. Shortness of breath. PA and lateral views of the chest were obtained. Comparison is made to a single view examination 10/17/2016. Note is made of a CT examination of the chest 10/17/2016. Partial atelectasis of the right middle lobe is noted as demonstrated on the CT. There is linear atelectasis or infiltrate in the right lower lobe also as demonstrated on CT. The left lung is clear. The heart and pulmonary vessels are normal. IMPRESSION: Known volume loss in the right middle lobe is reproduced. Atelectasis or infiltrate, compatible with pneumonia, additionally noted in the right lower lobe
[2016-10-18 15:00] VITALS: BP 148/69
[2016-10-18] MEDS ORDERED: SALIVA STIMULANT AGENT 44ML SPRAY BOTTLE. PO PRN (15:00)
--- NOTE | 2016-10-18 15:11 | PDOC ---
Provider Note Provider Note dictated KATT FLETCHER MD Oct 18, 2016 15:11
--- NOTE | 2016-10-18 16:13 | CONS ---
DATE OF CONSULTATION: ATTENDING PHYSICIAN: Dr. Loomis. REASON FOR CONSULTATION: Abnormal CT chest, chest pain. HISTORY OF PRESENT ILLNESS: The patient is a 76-year-old female with history of oxygen-dependent chronic obstructive airway disease. The patient presented to the hospital complaining of intermittent right-sided pleuritic type chest pain. She said she has a mild cough. No fever, no chills. She does have a chronic shortness of breath due to her COPD. She remains on oxygen at 2 liters on a 24-hour basis. She was seen in the Emergency Room and she underwent CT of the chest, which was reviewed by me. There was no evidence of pulmonary embolism. There was evidence of atelectasis in the right middle lobe, which could be compressive atelectasis and there was evidence of pneumonia involving the right lower lobe. The patient was started on Rocephin and Zithromax. Sputum cultures are growing gram-negative rods. I have been asked to see her for further evaluation. She still has lot of chest wall pain. PAST MEDICAL HISTORY: History of COPD, history of chronic respiratory failure, osteoporosis, anxiety, depression, history of pneumonia 5 years ago. PAST SURGICAL HISTORY: No recent major surgery. ALLERGIES: None. MEDICATIONS: All reviewed as listed in the [facility]. SOCIAL HISTORY: Smoked for about 25 some years, socially mostly and quit 15 years ago. PHYSICAL EXAMINATION: VITAL SIGNS: Blood pressure 148/69, afebrile, pulse ox 96% on 2 liters. NECK: Supple. LUNGS: Coarse rhonchi anteriorly and posteriorly. CARDIOVASCULAR: Regular rate and rhythm. ABDOMEN: Soft, nontender. EXTREMITIES: With no pitting edema. There is chest wall tenderness in the right lower chest. LABORATORY DATA: Reviewed. White cell count 19.1 on admission, hemoglobin 14.6 and platelets are 316. BUN is 13, creatinine 0.7. IMPRESSION: 1. Community-acquired right lower lobe pneumonia. 2. Abnormal CT chest with right middle lobe atelectasis and a right lower lobe acute inflammatory process consistent with pneumonia. 3. Underlying chronic obstructive pulmonary disease with exacerbation. She has chronic hypoxia and uses 2 liters of oxygen. 4. History of anxiety/depression. 5. Gram-negative rods in the sputum. RECOMMENDATIONS: 1. Continue with present broad-spectrum antibiotics. 2. Follow sputum cultures and make necessary adjustments. 3. Taper steroids and follow white cell count. The increase in leukocytosis may be secondary to steroids. 4. Lovenox for DVT prophylaxis. 5. Continue bronchodilators. 6. I would recommend on repeating CT chest in 6-8 weeks to make sure right middle lobe atelectasis and right lower lobe infiltrates have resolved. 7. Discussed with the patient's family. KATT FLETCHER MD DR: ZEUS/zander JOB#: [id number] / [id number]
[2016-10-18] MEDS: LIDOCAINE (700MG/PATCH) PATCH. TD SCH (18:19)
[2016-10-18 19:29] VITALS: BP 139/65
[2016-10-18] MEDS: ENOXAPARIN 40 MG/0.4 ML SYRINGE. SQ SCH (20:55)
[2016-10-18] MEDS: SIMVASTATIN 40 MG TABLET. PO SCH (20:55)
[2016-10-18] MEDS: SENNOSIDES/DOCUSATE 8.6/50MG TABLET. PO PRN (21:37)
[2016-10-18 22:44] VITALS: BP 146/72
--- NOTE | 2016-10-19 00:45 | ACF ---
Admission Forms Criteria COPD Clinical Indications for Admission to Inpatient Care (Place 'X' for any and all applicable criteria): Admission is indicated for ANY ONE of the following (1)(2)(3): [X ]I. Acute exacerbation by high-risk comorbidity (e.g., pneumonia, dysrhythmia, heart failure, pleural effusion, pneumothorax) or severe underlying COPD (e.g., steroid dependent) [ ]II. Inpatient admission required rather than observation care (see Chronic Obstructive Pulmonary Disease: Observation Care) because of ANY ONE of the following: [ ]a) New or pre-existing signs or symptoms of COPD (eg, dyspnea or Tachypnea at rest or with minimal activity) that persist despite outpatient and observation care treatment [ ]b) New-onset hypoxemia (room air SaO2 less than 90%, PO2 less than 60 mm Hg (8.0 kPa)) that persists despite outpatient and observation care treatment [ ]c) Worsening of pre-existing hypoxemia (eg, new or increased requirement for supplemental oxygen to maintain oxygenation at baseline level) that persists despite outpatient and observation care treatment, with oxygen treatment needs performable only in acute inpatient setting [ ]d) Hypercarbia (PCO2 greater than 40 mm Hg (5.3 kPa))-induced respiratory acidosis (pH less than 7.35) that persists despite outpatient and observation care treatment [ ]e) Supplemental oxygen or respiratory treatments for over 24 hours that are performable only in acute inpatient setting [ ]f) Chest tube placement with active evacuation (e.g., suction, drainage) (5) [ ]g) Other condition, treatment or monitoring requiring inpatient admission [ ]III. Planned invasive surgical or diagnostic procedures requiring acute- care hospitalization [ ]IV. Acute respiratory failure (e.g., uncompensated hypercarbia, severe hypoxemia) [ ]V. Severe comorbid condition (e.g., severe steroid myopathy, acute vertebral fracture) that has acutely worsened pulmonary function [ ]. Confusion state, lethargy, obtundation, stupor or coma Extended stay beyond goal length of stay may be needed for (31)(32): [ ]a ) Respiratory Failure. [ ]b) Severe or persisting hypoxemia or hypercarbia [ ]c) Severe or persistent dyspnea [ ]d) Comorbidities (e.g. chronic heart failure, atrial fibrillation with rapid response, pneumonia) [ ]e) Malnutrition The original [facility] content created by [employer] [facility] has been revised. The portions of the content which have been revised are identified through the use of italic text or in bold, and [facility] has neither reviewed nor approved the modified material. All other unmodified content is copyright [facility]. Please see references footnoted in the original [facility] edition 2016 Admission Criteria Met?: Yes GILBERTO SORIA Oct 19, 2016 00:45
[2016-10-19] MEDS: MORPHINE SULFATE 2 MG/ML DISP.SYRIN. IV PRN ×4 (01:32→20:21)
[2016-10-19] MEDS: ALPRAZolam 0.25 MG TABLET PO PRN ×3 (01:59→16:01)
[2016-10-19] MEDS: HYDROcodone/APAP 10/325 1 TAB TABLET PO PRN ×4 (01:59→22:00)
[2016-10-19 02:00] VITALS: BP 157/79
[2016-10-19] MEDS: methylPREDNISolone SOD SUCC PF 125 MG/2 ML VIAL. IV SCH ×3 (06:27→22:01)
[2016-10-19 07:00] VITALS: BP 148/75
[2016-10-19 07:45] LABS: BASO % 0 % (0-3); EOS % 0 % (0-3); HEMATOCRIT 33.9 % (36.0-47.0); HEMOGLOBIN 11.1 g/dL (12.0-15.5); LYMPH # 0.7 x10^3/uL (1.0-4.8); LYMPH % 4 % (24-48); MEAN CORPUSCULAR HEMOGLOBIN 33 pg (25-35); MEAN CORPUSCULAR HGB CONC 33 g/dL (31-37); MEAN CORPUSCULAR VOLUME 101 fL (79-100); MONO % 2 % (0-9); NEUT % 94 % (31-73); PLATELET COUNT 245 x10^3/uL (140-400); RED BLOOD COUNT 3.37 x10^6/uL (3.50-5.40); RED CELL DISTRIBUTION WIDTH 13.9 % (11.5-14.5); WHITE BLOOD COUNT 19.9 x10^3/uL (4.0-11.0)
[2016-10-19] MEDS: IPRATRPIUM/ALBUTEROL 0.5/2.5MG 3 ML NEBU. NEB SCH ×4 (07:52→19:58)
[2016-10-19] MEDS: IV NORMAL SALINE 1000ML BAG 1,000 ML IV SCH (08:30)
[2016-10-19] MEDS: LIDOCAINE (700MG/PATCH) PATCH. TD SCH (08:31)
[2016-10-19] MEDS: SENNOSIDES/DOCUSATE 8.6/50MG TABLET. PO PRN (09:34)
--- NOTE | 2016-10-19 10:29 | PDOC ---
PROGRESS NOTES Subjective Subjective feels much better today Objective Objective Vital Signs Date Time Temp Pulse Resp B/P (MAP) Pulse Ox O2 Delivery O2 Flow Rate FiO2 10/19/16 09:35 97 Nasal Cannula 3.0 10/19/16 07:00 97.5 83 17 148/75 (99) 97.5 Intake and Output 10/19/16 07:00 Intake Total 600 ml Output Total 1500 ml Balance -900 ml Intake Oral 600 ml Output Urine Total 1500 ml # Voids 1 Physical Exam Abdomen: Normal bowel sounds, Soft Heart: Regular rate, Normal S1, Normal S2 Extremities: No clubbing General: Alert HEENT: Atraumatic Lungs: Other (wheezing rt lung) Neck: Supple Neuro: Normal speech Psych/Mental Status: Mental status NL Skin: No breakdown Diagnosis Problem List Problems Medical Problems: (1) Anxiety Status: Acute (2) Chest pain Status: Acute (3) COPD (chronic obstructive pulmonary disease) Status: Acute (4) Hypoxia Status: Acute (5) Pneumonia Status: Acute Assessment Assessment Problems Medical Problems: (1) Anxiety Status: Acute (2) Chest pain Status: Acute (3) COPD (chronic obstructive pulmonary disease) Status: Acute (4) Hypoxia Status: Acute (5) Pneumonia Status: Acute FINAL IMPRESSION: 1. Community-acquired pneumonia. 2. Chronic obstructive pulmonary disease with acute exacerbation. 3. History of smoking for many years, quit 5 years ago. 4. Anxiety. 5. Depression. 6. Hyperlipidemia. 7. Sepsis with lactic acidosis PLAN: d/c fluids d/c zithromax clinically improving. repeat cxr today. sputum gram neg. IV antibiotics Rocephin. taper iv steroids duoneb qid+prn. spoke with family members Problems: Plan Plan of Care Problems Medical Problems: (1) Anxiety Status: Acute (2) Chest pain Status: Acute (3) COPD (chronic obstructive pulmonary disease) Status: Acute (4) Hypoxia Status: Acute (5) Pneumonia Status: Acute Comment Review of Relevant I have reviewed the following items loree (where applicable) has been applied. Labs Laboratory Tests Test 10/19/16 07:23 White Blood Count 19.9 x10^3/uL (4.0-11.0) Red Blood Count 3.37 x10^6/uL (3.50-5.40) Hemoglobin 11.1 g/dL (12.0-15.5) Hematocrit 33.9 % (36.0-47.0) Mean Corpuscular Volume 101 fL (79-100) Mean Corpuscular Hemoglobin 33 pg (25-35) Mean Corpuscular Hemoglobin Concent 33 g/dL (31-37) Red Cell Distribution Width 13.9 % (11.5-14.5) Platelet Count 245 x10^3/uL (140-400) Neutrophils (%) (Auto) 94 % (31-73) Lymphocytes (%) (Auto) 4 % (24-48) Monocytes (%) (Auto) 2 % (0-9) Eosinophils (%) (Auto) 0 % (0-3) Basophils (%) (Auto) 0 % (0-3) Neutrophils # (Auto) 18.7 x10^3uL (1.8-7.7) Lymphocytes # (Auto) 0.7 x10^3/uL (1.0-4.8) Monocytes # (Auto) 0.5 x10^3/uL (0.0-1.1) Eosinophils # (Auto) 0.0 x10^3/uL (0.0-0.7) Basophils # (Auto) 0.0 x10^3/uL (0.0-0.2) Microbiology 10/17/16 Blood Culture - Preliminary, Resulted NO GROWTH AFTER 1 DAY 10/18/16 Gram Stain - Final, Complete 10/17/16 Urine Culture - Preliminary, Resulted 10/17/16 Urine Culture Result 1 (ASHOK) - Preliminary, Resulted Medications Current Medications Albuterol/ Ipratropium (Duoneb) 3 ml RTQID NEB Last administered on 10/19/16 07 :52; Start 10/18/16 at 20:00 Azithromycin 500 mg/Sodium Chloride 250 ml @ 250 mls/hr Q24H IV Last administered on 10/18/16 11:23; Start 10/18/16 at 12:00 Bisacodyl (Dulcolax Tab) 10 mg PRN DAILY PRN PO CONSTIPATION; Start 10/19/16 at 10:30 Ceftriaxone Sodium 1 gm/ Sodium Chloride 50 ml @ 100 mls/hr Q24H IV Last administered on 10/18/16 11:23; Start 10/18/16 at 12:00 Guaifenesin (Mucinex) 600 mg BID PO ; Start 10/19/16 at 11:00 Lidocaine (Lidoderm) 1 patch DAILY TD Last administered on 10/19/16 08:31; Start 10/18/16 at 18:00 Methylnaltrexone [place] (Relistor) 12 mg PRN 1X PRN SQ constipation; Start 10/19/16 at 10:30 Methylprednisolone Sodium Succinate (SOLU-Medrol 125MG VIAL) 60 mg Q8HRS IV Last administered on 10/19/16 06:27; Start 10/18/16 at 22:00 Methylprednisolone Sodium Succinate (SOLU-Medrol 125MG VIAL) 80 mg Q8HRS IV Last administered on 10/18/16 13:58; Start 10/18/16 at 14:00; Stop 10/18/16 at 15: 12; Status DC Saliva Substitute (Biotene Moisturizing Mouth) 2 spray PRN Q15MIN PRN PO DRY MOUTH Last administered on 10/18/16 17:25; Start 10/18/16 at 15:00 Senna/Docusate Sodium (Senna Plus) 2 tab PRN BID PRN PO CONSTIPATION Last administered on 10/19/16 09:34; Start 10/18/16 at 21:15 Simvastatin (Zocor) 40 mg QHS PO Last administered on 10/18/16 20:55; Start 10/18/16 at 21:00 Vitals/I & O Vital Sign - Last 24 Hours 10/18/16 10/18/16 10/18/16 10/18/16 10:44 11:23 11:51 11:53 Temp 98.4 98.4 Pulse 80 Resp 16 22 22 B/P (MAP) 116/64 (81) Pulse Ox 94 94 96 O2 Delivery Room Air Nasal Cannula Nasal Cannula O2 Flow Rate 3.0 2.0 10/18/16 10/18/16 10/18/16 10/18/16 13:58 14:31 15:00 15:02 Temp 97.9 97.9 Pulse 88 Resp 20 22 20 22 B/P (MAP) 148/69 (95) Pulse Ox 96 96 95 O2 Delivery Nasal Cannula Nasal Cannula O2 Flow Rate 2.0 2.0 10/18/16 10/18/16 10/18/16 10/18/16 15:52 17:22 17:49 19:29 Temp 98.1 98.1 Pulse 78 Resp 22 22 B/P (MAP) 139/65 (89) Pulse Ox 96 96 96 O2 Delivery Nasal Cannula Nasal Cannula Nasal Cannula O2 Flow Rate 2.0 2.0 3.0 10/18/16 10/18/16 10/18/16 10/18/16 19:47 19:55 19:59 20:00 Pulse Ox 96 96 96 O2 Delivery Nasal Cannula Nasal Cannula Nasal Cannula Nasal Cannula O2 Flow Rate 3.0 3.0 2.0 3.0 10/18/16 10/18/16 10/19/16 10/19/16 22:42 22:44 01:32 01:59 Temp 97.7 97.7 Pulse 71 Resp 22 B/P (MAP) 146/72 (96) Pulse Ox 96 95 95 95 O2 Delivery Nasal Cannula Nasal Cannula Nasal Cannula Nasal Cannula O2 Flow Rate 2.0 3.0 3.0 3.0 10/19/16 10/19/16 10/19/16 10/19/16 02:00 02:01 06:45 07:00 Temp 98.0 97.5 98.0 97.5 Pulse 78 83 Resp 24 17 B/P (MAP) 157/79 (105) 148/75 (99) Pulse Ox 95 94 94 98 O2 Delivery Nasal Cannula Nasal Cannula Nasal Cannula Nasal Cannula O2 Flow Rate 3.0 2.0 3.0 3.0 10/19/16 10/19/16 10/19/16 10/19/16 07:13 07:52 08:32 09:35 Pulse Ox 94 97 97 97 O2 Delivery Nasal Cannula Nasal Cannula Nasal Cannula Nasal Cannula O2 Flow Rate 3.0 2.0 3.0 3.0 Intake and Output 10/18/16 10/18/16 10/19/16 15:00 23:00 07:00 Intake Total 400 ml 200 ml Output Total 1500 ml Balance -1100 ml 200 ml JOHN HACKETT MD Oct 19, 2016 10:28
[2016-10-19] MEDS ORDERED: BISACODYL 5 MG TABLET.DR. PO PRN (10:30)
[2016-10-19] MEDS ORDERED: METHYLNALTREXONE 12 MG/0.6 ML VIAL. SQ PRN (10:30)
[2016-10-19 11:00] VITALS: BP 152/82
--- NOTE | 2016-10-19 12:18 | PDOC ---
PULMONARY PROGRESS NOTES Subjective no soa pleuritic CP improving constipated Vitals Vital Signs Date Time Temp Pulse Resp B/P (MAP) Pulse Ox O2 Delivery O2 Flow Rate FiO2 10/19/16 12:07 95 Nasal Cannula 3.0 10/19/16 07:00 97.5 83 17 148/75 (99) 97.5 General: Alert, No acute distress Lungs: Clear Cardiovascular: S1 Abdomen: Soft Neuro Exam: Alert Extremities: No Edema Skin: Warm Labs Laboratory Tests Test 10/17/16 13:04 10/17/16 13:49 10/17/16 19:10 10/18/16 00:40 Urine Collection Type Unknown Urine Color Yellow Urine Clarity Clear Urine pH 6.0 Urine Specific [place] 1.020 Urine Protein Negative mg/dL (NEG-TRACE) Urine Glucose (UA) Negative mg/dL (NEG) Urine Ketones (Stick) Negative mg/dL (NEG) Urine Blood Negative (NEG) Urine Nitrite Negative (NEG) Urine Bilirubin Negative (NEG) Urine Urobilinogen Dipstick 0.2 mg/dL (0.2 mg/dL) Urine Leukocyte Esterase Small (NEG) Urine RBC 0 /HPF (0-2) Urine WBC 5-10 /HPF (0-4) Urine Bacteria Few /HPF (0-FEW) Urine Hyaline Casts Few /HPF Urine Mucus Slight /LPF Lactic Acid Level 2.1 mmol/L (0.4-2.0) Troponin I Quantitative < 0.017 ng/mL (0.000-0.055) < 0.017 ng/mL (0.000-0.055) Thyroid Stimulating Hormone (TSH) 0.691 uIU/mL (0.358-3.74) Test 10/18/16 04:35 10/19/16 07:23 White Blood Count 22.8 x10^3/uL (4.0-11.0) 19.9 x10^3/uL (4.0-11.0) Red Blood Count 3.45 x10^6/uL (3.50-5.40) 3.37 x10^6/uL (3.50-5.40) Hemoglobin 11.2 g/dL (12.0-15.5) 11.1 g/dL (12.0-15.5) Hematocrit 34.1 % (36.0-47.0) 33.9 % (36.0-47.0) Mean Corpuscular Volume 99 fL (79-100) 101 fL (79-100) Mean Corpuscular Hemoglobin 33 pg (25-35) 33 pg (25-35) Mean Corpuscular Hemoglobin Concent 33 g/dL (31-37) 33 g/dL (31-37) Red Cell Distribution Width 13.8 % (11.5-14.5) 13.9 % (11.5-14.5) Platelet Count 238 x10^3/uL (140-400) 245 x10^3/uL (140-400) Neutrophils (%) (Auto) 94 % (31-73) 94 % (31-73) Lymphocytes (%) (Auto) 3 % (24-48) 4 % (24-48) Monocytes (%) (Auto) 2 % (0-9) 2 % (0-9) Eosinophils (%) (Auto) 0 % (0-3) 0 % (0-3) Basophils (%) (Auto) 1 % (0-3) 0 % (0-3) Neutrophils # (Auto) 21.5 x10^3uL (1.8-7.7) 18.7 x10^3uL (1.8-7.7) Lymphocytes # (Auto) 0.8 x10^3/uL (1.0-4.8) 0.7 x10^3/uL (1.0-4.8) Monocytes # (Auto) 0.4 x10^3/uL (0.0-1.1) 0.5 x10^3/uL (0.0-1.1) Eosinophils # (Auto) 0.0 x10^3/uL (0.0-0.7) 0.0 x10^3/uL (0.0-0.7) Basophils # (Auto) 0.2 x10^3/uL (0.0-0.2) 0.0 x10^3/uL (0.0-0.2) Sodium Level 142 mmol/L (136-145) Potassium Level 3.9 mmol/L (3.5-5.1) Chloride Level 105 mmol/L (98-107) Carbon Dioxide Level 29 mmol/L (21-32) Anion Gap 8 (6-14) Blood Urea Nitrogen 13 mg/dL (7-20) Creatinine 0.7 mg/dL (0.6-1.0) Estimated GFR (Cockcroft-Gault) 81.8 Glucose Level 175 mg/dL (70-99) Lactic Acid Level 1.7 mmol/L (0.4-2.0) Calcium Level 8.3 mg/dL (8.5-10.1) Triglycerides Level 50 mg/dL (0-150) Cholesterol Level 145 mg/dL (0-200) LDL Cholesterol, Calculated 57 mg/dL (0-100) VLDL Cholesterol, Calculated 10 mg/dL (0-40) Non-HDL Cholesterol Calculated 67 mg/dL (0-129) HDL Cholesterol 78 mg/dL (40-60) Cholesterol/HDL Ratio 1.9 Thyroid Stimulating Hormone (TSH) 0.683 uIU/mL (0.358-3.74) Laboratory Tests Test 10/19/16 07:23 White Blood Count 19.9 x10^3/uL (4.0-11.0) Red Blood Count 3.37 x10^6/uL (3.50-5.40) Hemoglobin 11.1 g/dL (12.0-15.5) Hematocrit 33.9 % (36.0-47.0) Mean Corpuscular Volume 101 fL (79-100) Mean Corpuscular Hemoglobin 33 pg (25-35) Mean Corpuscular Hemoglobin Concent 33 g/dL (31-37) Red Cell Distribution Width 13.9 % (11.5-14.5) Platelet Count 245 x10^3/uL (140-400) Neutrophils (%) (Auto) 94 % (31-73) Lymphocytes (%) (Auto) 4 % (24-48) Monocytes (%) (Auto) 2 % (0-9) Eosinophils (%) (Auto) 0 % (0-3) Basophils (%) (Auto) 0 % (0-3) Neutrophils # (Auto) 18.7 x10^3uL (1.8-7.7) Lymphocytes # (Auto) 0.7 x10^3/uL (1.0-4.8) Monocytes # (Auto) 0.5 x10^3/uL (0.0-1.1) Eosinophils # (Auto) 0.0 x10^3/uL (0.0-0.7) Basophils # (Auto) 0.0 x10^3/uL (0.0-0.2) Medications Active Scripts Medications Dose Route/Sig Max Daily Dose Days Date Category Proair Hfa Inhaler (Albuterol Sulfate) 8.5 Gm Hfa.aer.ad 1 Puff INH PRN Q6HRS PRN 10/17/16 Reported Hydrocodone-Apap 5-325 (Hydrocodone Bit/Acetaminophen) 1 Each Tablet 1 Tab PO PRN Q6HRS PRN 10/17/16 Reported Benadryl (Diphenhydramine Hcl) 25 Mg Capsule 1 Cap PO QHS 10/17/16 Reported Tylenol (Acetaminophen) 325 Mg Tablet 325 Mg PO Q4HRS 10/17/16 Reported Tablet (Pnv Cmb#95/Ferrous Fumarate/Fa) 1 Each Tablet 1 Tab PO DAILY 10/17/16 Reported Calcium + D3 Er Tablet (Calcium Carb & Cit/Vitamin D3) 1 Each Tablet.er 1 Each PO DAILY 10/17/16 Reported Simvastatin 40 Mg Tablet 1 Tab PO QHS 10/17/16 Reported Xanax (Alprazolam) 0.25 Mg Tablet 1 Tab PO TID PRN 10/17/16 Reported Impression . 1. Community-acquired right lower lobe pneumonia. 2. Abnormal CT chest with right middle lobe atelectasis and a right lower lobe acute inflammatory process consistent with pneumonia. 3. Underlying chronic obstructive pulmonary disease with exacerbation. She has chronic hypoxia and uses 2 liters of oxygen. 4. History of anxiety/depression. 5. Gram-negative rods in the sputum. Plan . 1. Continue with present broad-spectrum antibiotics. 2. Follow sputum cultures and make necessary adjustments. 3. Taper steroids and follow white cell count. The increase in leukocytosis may be secondary to steroids. 4. Lovenox for DVT prophylaxis. 5. Continue bronchodilators. 6. I would recommend on repeating CT chest in 6-8 weeks to make sure right middle lobe atelectasis and right lower lobe infiltrates have resolved. 7. Discussed with the patient's family. KATT FLETCHER MD Oct 19, 2016 12:18
[2016-10-19 15:00] VITALS: BP 111/82
[2016-10-19 19:30] VITALS: BP 142/67
[2016-10-19] MEDS: SIMVASTATIN 40 MG TABLET. PO SCH (21:59)
[2016-10-19] MEDS: ZOLPIDEM 5 MG TABLET. PO PRN (21:59)
[2016-10-19] MEDS: ENOXAPARIN 40 MG/0.4 ML SYRINGE. SQ SCH (22:00)
[2016-10-19 22:18] VITALS: BP 139/86
[2016-10-20] VITALS (7 sets, daily range): BP systolic 114–183; BP diastolic 70–106
[2016-10-20] MEDS: MORPHINE SULFATE 2 MG/ML DISP.SYRIN. IV PRN ×2 (03:54→22:22)
[2016-10-20] MEDS: methylPREDNISolone SOD SUCC PF 125 MG/2 ML VIAL. IV SCH (06:08)
[2016-10-20] MEDS: ALPRAZolam 0.25 MG TABLET PO PRN ×2 (06:37→14:04)
[2016-10-20 07:07] LABS: BASO % 0 % (0-3); EOS % 0 % (0-3); HEMATOCRIT 35.4 % (36.0-47.0); HEMOGLOBIN 11.6 g/dL (12.0-15.5); LYMPH # 0.8 x10^3/uL (1.0-4.8); LYMPH % 5 % (24-48); MEAN CORPUSCULAR HEMOGLOBIN 33 pg (25-35); MEAN CORPUSCULAR HGB CONC 33 g/dL (31-37); MEAN CORPUSCULAR VOLUME 99 fL (79-100); MONO % 3 % (0-9); NEUT % 92 % (31-73); PLATELET COUNT 264 x10^3/uL (140-400); RED BLOOD COUNT 3.56 x10^6/uL (3.50-5.40); RED CELL DISTRIBUTION WIDTH 13.4 % (11.5-14.5); WHITE BLOOD COUNT 15.4 x10^3/uL (4.0-11.0)
[2016-10-20] MEDS: IPRATRPIUM/ALBUTEROL 0.5/2.5MG 3 ML NEBU. NEB SCH ×4 (07:55→19:48)
[2016-10-20] MEDS: LIDOCAINE (700MG/PATCH) PATCH. TD SCH (09:19)
[2016-10-20] MEDS: HYDROcodone/APAP 10/325 1 TAB TABLET PO PRN ×2 (09:19→19:37)
--- NOTE | 2016-10-20 10:26 | PDOC ---
PROGRESS NOTES Subjective Subjective feels better today Objective Objective Vital Signs Date Time Temp Pulse Resp B/P (MAP) Pulse Ox O2 Delivery O2 Flow Rate FiO2 10/20/16 09:19 20 99 Nasal Cannula 3.0 10/20/16 07:00 98.6 69 183/79 (113) 98.6 Intake and Output 10/20/16 07:00 Intake Total 937 ml Output Total 50 ml Balance 887 ml Intake Oral 937 ml Output Urine Total 50 ml # Voids 7 # Bowel Movements 1 Physical Exam Abdomen: Normal bowel sounds, Soft Heart: Regular rate, Normal S1, Normal S2 Extremities: No clubbing General: Alert HEENT: Atraumatic Lungs: Other (wheezing rt lung) Neck: Supple Neuro: Normal speech Psych/Mental Status: Mental status NL Skin: No breakdown Diagnosis Problem List Problems Medical Problems: (1) Anxiety Status: Acute (2) Chest pain Status: Acute (3) COPD (chronic obstructive pulmonary disease) Status: Acute (4) Hypoxia Status: Acute (5) Pneumonia Status: Acute Assessment Assessment Problems Medical Problems: (1) Anxiety Status: Acute (2) Chest pain Status: Acute (3) COPD (chronic obstructive pulmonary disease) Status: Acute (4) Hypoxia Status: Acute (5) Pneumonia Status: Acute FINAL IMPRESSION: 1. Community-acquired pneumonia.Pseudomonas 2. Chronic obstructive pulmonary disease with acute exacerbation. 3. History of smoking for many years, quit 5 years ago. 4. Anxiety. 5. Depression. 6. Hyperlipidemia. 7. Sepsis with lactic acidosis PLAN: spoke with pulmonary iv zosyn for nowwaiting for final ID clinically improving. repeat cxr noted pneumonia. sputum gram neg. d/c IV antibiotics Rocephin. taper iv steroids duoneb qid+prn. spoke with family members Problems: Plan Plan of Care Problems Medical Problems: (1) Anxiety Status: Acute (2) Chest pain Status: Acute (3) COPD (chronic obstructive pulmonary disease) Status: Acute (4) Hypoxia Status: Acute (5) Pneumonia Status: Acute Comment Review of Relevant I have reviewed the following items loree (where applicable) has been applied. Labs Laboratory Tests Test 10/20/16 06:42 White Blood Count 15.4 x10^3/uL (4.0-11.0) Red Blood Count 3.56 x10^6/uL (3.50-5.40) Hemoglobin 11.6 g/dL (12.0-15.5) Hematocrit 35.4 % (36.0-47.0) Mean Corpuscular Volume 99 fL (79-100) Mean Corpuscular Hemoglobin 33 pg (25-35) Mean Corpuscular Hemoglobin Concent 33 g/dL (31-37) Red Cell Distribution Width 13.4 % (11.5-14.5) Platelet Count 264 x10^3/uL (140-400) Neutrophils (%) (Auto) 92 % (31-73) Lymphocytes (%) (Auto) 5 % (24-48) Monocytes (%) (Auto) 3 % (0-9) Eosinophils (%) (Auto) 0 % (0-3) Basophils (%) (Auto) 0 % (0-3) Neutrophils # (Auto) 14.2 x10^3uL (1.8-7.7) Lymphocytes # (Auto) 0.8 x10^3/uL (1.0-4.8) Monocytes # (Auto) 0.4 x10^3/uL (0.0-1.1) Eosinophils # (Auto) 0.0 x10^3/uL (0.0-0.7) Basophils # (Auto) 0.0 x10^3/uL (0.0-0.2) Microbiology 10/17/16 Blood Culture - Preliminary, Resulted NO GROWTH AFTER 2 DAYS 10/18/16 Gram Stain - Final, Complete 10/17/16 Urine Culture - Final, Complete 10/17/16 Urine Culture Result 1 (ASHOK) - Final, Complete Medications Current Medications Bisacodyl (Dulcolax Tab) 10 mg PRN DAILY PRN PO CONSTIPATION; Start 10/19/16 at 10:30 Guaifenesin (Mucinex) 600 mg BID PO Last administered on 10/20/16 09:19; Start 10/19/16 at 11:00 Methylnaltrexone [place] (Relistor) 12 mg PRN 1X PRN SQ constipation; Start 10/19/16 at 10:30 Zolpidem Tartrate (Ambien) 5 mg PRN QHS PRN PO INSOMNIA Last administered on t 21:59; Start 10/19/16 at 15:00 Vitals/I & O Vital Sign - Last 24 Hours 8/8/10/19/16 10/19/16 10/19/16 11:00 11:40 12:07 15:00 Temp 97.4 97.7 97.4 97.7 Pulse 73 66 Resp 19 19 B/P (MAP) 152/82 (105) 111/82 (92) Pulse Ox 97 95 95 97 O2 Delivery Nasal Cannula Nasal Cannula Nasal Cannula Nasal Cannula O2 Flow Rate 3.0 2.0 3.0 3.0 10/19/16 10/19/16 10/19/16 10/19/16 16:01 16:37 19:30 19:58 Temp 97.8 97.8 Pulse 83 Resp 24 B/P (MAP) 142/67 (92) Pulse Ox 95 97 96 O2 Delivery Nasal Cannula Nasal Cannula Nasal Cannula Nasal Cannula O2 Flow Rate 3.0 3.0 3.0 3.0 10/19/16 10/19/16 10/19/16 10/19/16 20:00 20:21 22:00 22:18 Temp 98.0 98.0 Pulse 75 Resp 22 B/P (MAP) 139/86 (103) Pulse Ox 96 96 99 O2 Delivery Nasal Cannula Nasal Cannula Nasal Cannula Nasal Cannula O2 Flow Rate 3.0 3.0 3.0 3.0 10/19/16 10/20/16 10/20/16 10/20/16 23:00 03:52 03:54 04:20 Temp 97.9 97.9 Pulse 64 58 Resp 26 B/P (MAP) 142/106 (118) 177/82 (113) Pulse Ox 99 97 99 O2 Delivery Nasal Cannula Nasal Cannula Nasal Cannula O2 Flow Rate 3.0 3.0 3.0 10/20/16 10/20/16 10/20/16 10/20/16 04:24 07:00 07:56 09:19 Temp 98.6 98.6 Pulse 69 Resp 19 20 B/P (MAP) 183/79 (113) Pulse Ox 99 95 99 99 O2 Delivery Nasal Cannula Nasal Cannula Nasal Cannula Nasal Cannula O2 Flow Rate 3.0 3.0 3.0 3.0 Intake and Output 10/19/16 10/19/16 10/20/16 15:00 23:00 07:00 Intake Total 637 ml 300 ml Output Total 50 ml Balance 637 ml 250 ml JOHN HACKETT MD Oct 20, 2016 10:26
[2016-10-20] MEDS ORDERED: SODIUM CHLORIDE 0.65% NASAL SPRAY 45ML BOTTLE. NS PRN (10:30)
[2016-10-20] MEDS ORDERED: predniSONE 20 MG TABLET PO ONE (11:00)
--- NOTE | 2016-10-20 12:23 | PDOC ---
PULMONARY PROGRESS NOTES Subjective no soa pleuritic CP improving Vitals Vital Signs Date Time Temp Pulse Resp B/P (MAP) Pulse Ox O2 Delivery O2 Flow Rate FiO2 10/20/16 11:24 94 Nasal Cannula 3.0 10/20/16 11:00 98.5 78 18 130/91 (104) 98.5 General: Alert, No acute distress Lungs: Other (decrease bs) Cardiovascular: S1 Abdomen: Soft Neuro Exam: Alert Extremities: No Edema Skin: Warm Labs Laboratory Tests Test 10/19/16 07:23 10/20/16 06:42 White Blood Count 19.9 x10^3/uL (4.0-11.0) 15.4 x10^3/uL (4.0-11.0) Red Blood Count 3.37 x10^6/uL (3.50-5.40) 3.56 x10^6/uL (3.50-5.40) Hemoglobin 11.1 g/dL (12.0-15.5) 11.6 g/dL (12.0-15.5) Hematocrit 33.9 % (36.0-47.0) 35.4 % (36.0-47.0) Mean Corpuscular Volume 101 fL (79-100) 99 fL (79-100) Mean Corpuscular Hemoglobin 33 pg (25-35) 33 pg (25-35) Mean Corpuscular Hemoglobin Concent 33 g/dL (31-37) 33 g/dL (31-37) Red Cell Distribution Width 13.9 % (11.5-14.5) 13.4 % (11.5-14.5) Platelet Count 245 x10^3/uL (140-400) 264 x10^3/uL (140-400) Neutrophils (%) (Auto) 94 % (31-73) 92 % (31-73) Lymphocytes (%) (Auto) 4 % (24-48) 5 % (24-48) Monocytes (%) (Auto) 2 % (0-9) 3 % (0-9) Eosinophils (%) (Auto) 0 % (0-3) 0 % (0-3) Basophils (%) (Auto) 0 % (0-3) 0 % (0-3) Neutrophils # (Auto) 18.7 x10^3uL (1.8-7.7) 14.2 x10^3uL (1.8-7.7) Lymphocytes # (Auto) 0.7 x10^3/uL (1.0-4.8) 0.8 x10^3/uL (1.0-4.8) Monocytes # (Auto) 0.5 x10^3/uL (0.0-1.1) 0.4 x10^3/uL (0.0-1.1) Eosinophils # (Auto) 0.0 x10^3/uL (0.0-0.7) 0.0 x10^3/uL (0.0-0.7) Basophils # (Auto) 0.0 x10^3/uL (0.0-0.2) 0.0 x10^3/uL (0.0-0.2) Laboratory Tests Test 10/20/16 06:42 White Blood Count 15.4 x10^3/uL (4.0-11.0) Red Blood Count 3.56 x10^6/uL (3.50-5.40) Hemoglobin 11.6 g/dL (12.0-15.5) Hematocrit 35.4 % (36.0-47.0) Mean Corpuscular Volume 99 fL (79-100) Mean Corpuscular Hemoglobin 33 pg (25-35) Mean Corpuscular Hemoglobin Concent 33 g/dL (31-37) Red Cell Distribution Width 13.4 % (11.5-14.5) Platelet Count 264 x10^3/uL (140-400) Neutrophils (%) (Auto) 92 % (31-73) Lymphocytes (%) (Auto) 5 % (24-48) Monocytes (%) (Auto) 3 % (0-9) Eosinophils (%) (Auto) 0 % (0-3) Basophils (%) (Auto) 0 % (0-3) Neutrophils # (Auto) 14.2 x10^3uL (1.8-7.7) Lymphocytes # (Auto) 0.8 x10^3/uL (1.0-4.8) Monocytes # (Auto) 0.4 x10^3/uL (0.0-1.1) Eosinophils # (Auto) 0.0 x10^3/uL (0.0-0.7) Basophils # (Auto) 0.0 x10^3/uL (0.0-0.2) Medications Active Scripts Medications Dose Route/Sig Max Daily Dose Days Date Category Proair Hfa Inhaler (Albuterol Sulfate) 8.5 Gm Hfa.aer.ad 1 Puff INH PRN Q6HRS PRN 10/17/16 Reported Hydrocodone-Apap 5-325 (Hydrocodone Bit/Acetaminophen) 1 Each Tablet 1 Tab PO PRN Q6HRS PRN 10/17/16 Reported Benadryl (Diphenhydramine Hcl) 25 Mg Capsule 1 Cap PO QHS 10/17/16 Reported Tylenol (Acetaminophen) 325 Mg Tablet 325 Mg PO Q4HRS 10/17/16 Reported Tablet (Pnv Cmb#95/Ferrous Fumarate/Fa) 1 Each Tablet 1 Tab PO DAILY 10/17/16 Reported Calcium + D3 Er Tablet (Calcium Carb & Cit/Vitamin D3) 1 Each Tablet.er 1 Each PO DAILY 10/17/16 Reported Simvastatin 40 Mg Tablet 1 Tab PO QHS 10/17/16 Reported Xanax (Alprazolam) 0.25 Mg Tablet 1 Tab PO TID PRN 10/17/16 Reported Impression . 1. Community-acquired right lower lobe pneumonia. 2. Abnormal CT chest with right middle lobe atelectasis and a right lower lobe acute inflammatory process consistent with pneumonia. 3. Underlying chronic obstructive pulmonary disease with exacerbation. She has chronic hypoxia and uses 2 liters of oxygen. 4. History of anxiety/depression. 5. Gram-negative rods in the sputum . PSA by culture Plan . 1. change antibiotics to Zosyn 2. Follow drug sensitivity and make necessary adjustments in antibiotics 3. Taper steroids and follow white cell count. The increase in leukocytosis may be secondary to steroids. 4. Lovenox for DVT prophylaxis. 5. Continue bronchodilators. 6. I would recommend on repeating CT chest in 6-8 weeks to make sure right middle lobe atelectasis and right lower lobe infiltrates have resolved. 7. Discussed with the patient's family and DR HACKETT repeat CXR in KATT Brian MD Oct 20, 2016 12:23
[2016-10-20] MEDS: PIPERACILLIN/TAZOBACTAM 3.375 GM in IV NORMAL SALINE 50ML 50 ML IV SCH ×3 (13:52→22:22)
[2016-10-20] MEDS: SIMVASTATIN 40 MG TABLET. PO SCH (20:58)
[2016-10-20] MEDS: ENOXAPARIN 40 MG/0.4 ML SYRINGE. SQ SCH (20:58)
[2016-10-20] MEDS: ZOLPIDEM 5 MG TABLET. PO PRN (20:59)
[2016-10-20] MEDS ORDERED: cloNIDine HCL 0.1 MG TABLET PO ONE (23:30)
[2016-10-21 03:40] VITALS: BP 145/82
[2016-10-21] MEDS: PIPERACILLIN/TAZOBACTAM 3.375 GM in IV NORMAL SALINE 50ML 50 ML IV SCH ×3 (06:22→16:19)
[2016-10-21 07:00] VITALS: BP 156/71
[2016-10-21] MEDS: IPRATRPIUM/ALBUTEROL 0.5/2.5MG 3 ML NEBU. NEB SCH ×3 (07:22→15:22)
[2016-10-21] MEDS: HYDROcodone/APAP 10/325 1 TAB TABLET PO PRN (08:47)
[2016-10-21] MEDS: LIDOCAINE (700MG/PATCH) PATCH. TD SCH (08:47)
--- NOTE | 2016-10-21 08:56 | RAD ---
Indication pneumonia. Cough. Difficulty breathing. A single view of the chest was obtained. Comparison is made to an examination 3 days earlier. Note is made of a CT examination of the chest 10/17/2016. Aeration of the lungs has improved. The heart and pulmonary vessels are normal. Volume loss seen in the right middle lobe seen on the referenced CT examination is not well represented on this exam. A new finding in the chest is not apparent on plain films. IMPRESSION: Slight improvement. Volume loss in the right middle lobe, demonstrated on prior CT, is not well represented on this single plain film of the chest
[2016-10-21] MEDS ORDERED: predniSONE 10 MG TABLET PO SCH (09:00)
--- NOTE | 2016-10-21 10:03 | PDOC ---
PROGRESS NOTES Subjective Subjective feels better , no sob, want to go home Objective Objective Vital Signs Date Time Temp Pulse Resp B/P (MAP) Pulse Ox O2 Delivery O2 Flow Rate FiO2 10/21/16 08:47 18 94 Nasal Cannula 3.0 10/21/16 07:00 97.8 73 156/71 (99) 97.8 Intake and Output 10/21/16 07:00 Intake Total 636 ml Output Total 200 ml Balance 436 ml Intake Oral 636 ml Output Urine Total 200 ml # Voids 6 # Bowel Movements 1 Physical Exam Abdomen: Normal bowel sounds, Soft Heart: Regular rate, Normal S1, Normal S2 Extremities: No clubbing General: Alert HEENT: Atraumatic Lungs: Other (wheezing rt lung) Neck: Supple Neuro: Normal speech Psych/Mental Status: Mental status NL Skin: No breakdown Diagnosis Problem List Problems Medical Problems: (1) Anxiety Status: Acute (2) Chest pain Status: Acute (3) COPD (chronic obstructive pulmonary disease) Status: Acute (4) Hypoxia Status: Acute (5) Pneumonia Status: Acute Assessment Assessment Problems Medical Problems: (1) Anxiety Status: Acute (2) Chest pain Status: Acute (3) COPD (chronic obstructive pulmonary disease) Status: Acute (4) Hypoxia Status: Acute (5) Pneumonia Status: Acute FINAL IMPRESSION: 1. Community-acquired pneumonia.Pseudomonas 2. Chronic obstructive pulmonary disease with acute exacerbation. 3. History of smoking for many years, quit 5 years ago. 4. Anxiety. 5. Depression. 6. Hyperlipidemia. 7. Sepsis with lactic acidosis PLAN: spoke with pulmonary. cxr showed improvement. d/c home on po cipro,sensitive po prednisone iv zosyn for now waiting for final ID clinically improving. repeat cxr noted pneumonia. sputum gram neg.pseudomonas Problems: Plan Plan of Care Problems Medical Problems: (1) Anxiety Status: Acute (2) Chest pain Status: Acute (3) COPD (chronic obstructive pulmonary disease) Status: Acute (4) Hypoxia Status: Acute (5) Pneumonia Status: Acute Comment Review of Relevant I have reviewed the following items loree (where applicable) has been applied. Labs Microbiology 10/17/16 Blood Culture - Preliminary, Resulted NO GROWTH AFTER 3 DAYS 10/18/16 Gram Stain - Final, Complete 10/17/16 Urine Culture - Final, Complete 10/17/16 Urine Culture Result 1 (ASHOK) - Final, Complete Medications Current Medications Clonidine HCl (Catapres) 0.1 mg 1X ONCE PO Last administered on 10/20/16 23:30 ; Start 10/20/16 at 23:30; Stop 10/20/16 at 23:31; Status DC Piperacillin Sod/ Tazobactam Sod 3.375 gm/Sodium Chloride 50 ml @ 100 mls/hr Q6HRS IV Last administered on 10/21/16 06:22; Start 10/20/16 at 11:30 Prednisone (Prednisone) 50 mg DAILY PO Last administered on 10/21/16 08:46; Start 10/21/16 at 09:00 Prednisone (Prednisone) 60 mg 1X ONCE PO Last administered on 10/20/16 13:51; Start 10/20/16 at 11:00; Stop 10/20/16 at 11:01; Status DC Sodium Chloride (Saline Mist Nasal) 1 yong PRN Q1HR PRN NS NASAL CONGESTION; Start 10/20/16 at 10:30 Vitals/I & O Vital Sign - Last 24 Hours 10/20/16 10/20/16 10/20/16 10/20/16 10:19 11:00 11:24 15:00 Temp 98.5 98.2 98.5 98.2 Pulse 78 71 Resp 20 18 18 B/P (MAP) 130/91 (104) 148/73 (98) Pulse Ox 94 93 94 93 O2 Delivery Nasal Cannula Nasal Cannula Nasal Cannula Nasal Cannula O2 Flow Rate 2.0 3.0 3.0 3.0 10/20/16 10/20/16 10/20/16 10/20/16 15:12 19:40 19:49 20:00 Temp 98.8 98.8 Pulse 88 Resp 20 B/P (MAP) 114/70 (85) Pulse Ox 94 94 94 O2 Delivery Nasal Cannula Room Air Room Air Nasal Cannula O2 Flow Rate 3.0 3.0 10/20/16 10/20/16 10/21/16 10/21/16 22:29 23:30 03:40 07:00 Temp 98.2 97.8 98.2 97.8 Pulse 110 110 98 73 Resp 20 18 B/P (MAP) 168/94 (118) 168/94 145/82 (103) 156/71 (99) Pulse Ox 93 93 93 O2 Delivery Room Air Room Air Room Air 10/21/16 10/21/16 10/21/16 07:23 07:58 08:47 Resp 18 Pulse Ox 94 94 O2 Delivery Room Air Nasal Cannula Nasal Cannula O2 Flow Rate 3.0 3.0 Intake and Output 10/20/16 10/20/16 10/21/16 15:00 23:00 07:00 Intake Total 636 ml Output Total 200 ml Balance 636 ml -200 ml JOHN HACKETT MD Oct 21, 2016 10:03
[2016-10-21] MEDS ORDERED: CIPR500T94 PO ×2 (10:11→15:38)
--- NOTE | 2016-10-21 10:27 | PDOC ---
PULMONARY PROGRESS NOTES Subjective no soa pleuritic CP improving Vitals Vital Signs Date Time Temp Pulse Resp B/P (MAP) Pulse Ox O2 Delivery O2 Flow Rate FiO2 10/21/16 08:47 18 94 Nasal Cannula 3.0 10/21/16 07:00 97.8 73 156/71 (99) 97.8 General: Alert, No acute distress Lungs: Other (decrease bs) Cardiovascular: S1 Abdomen: Soft Neuro Exam: Alert Extremities: No Edema Skin: Warm Labs Laboratory Tests Test 10/20/16 06:42 White Blood Count 15.4 x10^3/uL (4.0-11.0) Red Blood Count 3.56 x10^6/uL (3.50-5.40) Hemoglobin 11.6 g/dL (12.0-15.5) Hematocrit 35.4 % (36.0-47.0) Mean Corpuscular Volume 99 fL (79-100) Mean Corpuscular Hemoglobin 33 pg (25-35) Mean Corpuscular Hemoglobin Concent 33 g/dL (31-37) Red Cell Distribution Width 13.4 % (11.5-14.5) Platelet Count 264 x10^3/uL (140-400) Neutrophils (%) (Auto) 92 % (31-73) Lymphocytes (%) (Auto) 5 % (24-48) Monocytes (%) (Auto) 3 % (0-9) Eosinophils (%) (Auto) 0 % (0-3) Basophils (%) (Auto) 0 % (0-3) Neutrophils # (Auto) 14.2 x10^3uL (1.8-7.7) Lymphocytes # (Auto) 0.8 x10^3/uL (1.0-4.8) Monocytes # (Auto) 0.4 x10^3/uL (0.0-1.1) Eosinophils # (Auto) 0.0 x10^3/uL (0.0-0.7) Basophils # (Auto) 0.0 x10^3/uL (0.0-0.2) Medications Active Scripts Medications Dose Route/Sig Max Daily Dose Days Date Category Proair Hfa Inhaler (Albuterol Sulfate) 8.5 Gm Hfa.aer.ad 1 Puff INH PRN Q6HRS PRN 10/17/16 Reported Hydrocodone-Apap 5-325 (Hydrocodone Bit/Acetaminophen) 1 Each Tablet 1 Tab PO PRN Q6HRS PRN 10/17/16 Reported Benadryl (Diphenhydramine Hcl) 25 Mg Capsule 1 Cap PO QHS 10/17/16 Reported Tylenol (Acetaminophen) 325 Mg Tablet 325 Mg PO Q4HRS 10/17/16 Reported Tablet (Pnv Cmb#95/Ferrous Fumarate/Fa) 1 Each Tablet 1 Tab PO DAILY 10/17/16 Reported Calcium + D3 Er Tablet (Calcium Carb & Cit/Vitamin D3) 1 Each Tablet.er 1 Each PO DAILY 10/17/16 Reported Simvastatin 40 Mg Tablet 1 Tab PO QHS 10/17/16 Reported Xanax (Alprazolam) 0.25 Mg Tablet 1 Tab PO TID PRN 10/17/16 Reported Impression . 1. Community-acquired right lower lobe pneumonia. 2. Abnormal CT chest with right middle lobe atelectasis and a right lower lobe acute inflammatory process consistent with pneumonia. 3. Underlying chronic obstructive pulmonary disease with exacerbation. She has chronic hypoxia and uses 2 liters of oxygen. 4. History of anxiety/depression. 5. Gram-negative rods in the sputum . PSA by culture Plan . 1. change antibiotics to cipro 2. PSA sens. to quinolones 3. Taper steroids and follow white cell count. 4. Lovenox for DVT prophylaxis. 5. Continue bronchodilators. 6. I would recommend on repeating CT chest in 6-8 weeks to make sure right middle lobe atelectasis is resolved. .right lower lobe infiltrates have resolved on todays CXR 7. Discussed with the patient's family and DR ROXANN whiting/marine with me in november with a ct chest prior KATT FLETCHER MD Oct 21, 2016 10:27
[2016-10-21 11:00] VITALS: BP 146/87
[2016-10-21] MEDS: ALPRAZolam 0.25 MG TABLET PO PRN (11:52)
== END 2016-10-21 17:27 | disposition home or self-care (01) | DRG 871 ==
LOC: ER 09:57 → 2 SOUTH 12:49
PROVIDERS: ADMIT Internal Medicine; ATTEND Internal Medicine
PROC: 5A09357 Assistance with Respiratory Ventilation, Less than 24 Consecutive Hours, Continuous Positive Airway Pressure (ICD-10-PCS; principal; 2016-10-17)
DX: A41.9 Sepsis, unspecified organism (principal); J15.1 Pneumonia due to Pseudomonas; J44.0 Chronic obstructive pulmonary disease with (acute) lower respiratory infection; J44.1 Chronic obstructive pulmonary disease with (acute) exacerbation; J96.11 Chronic respiratory failure with hypoxia; E78.5 Hyperlipidemia, unspecified; F32.9 Major depressive disorder, single episode, unspecified; F41.9 Anxiety disorder, unspecified; K59.00 Constipation, unspecified; M81.0 Age-related osteoporosis without current pathological fracture; Z87.01 Personal history of pneumonia (recurrent); Z87.891 Personal history of nicotine dependence; Z99.81 Dependence on supplemental oxygen
CPT/HCPCS: 36415; 36600; 71010; 71020; 71275; 80048; 80061; 80076; 81001; 82553; 83605; 83690; 83735; 83880; 84443; 84484; 85007; 85027; 87040; 87070; 87086; 87186; 87205; 93005; 94620; 94640; 94660; 94760; 96365; 96366; 96367; 96375; 96376; J0456; J0690; J0696; J1170; J1650; J1940; J2060; J2270; J2543; J2930; J3010; J7030; J7050; J7512; J7620; Q0163; Q9967; 97110; 99291-25

== ENCOUNTER → 2016-11-11 | Outpatient (CLI) | payer MEDICARE, BC ==
[2016-10-21 11:00] VITALS: BP 146/87
[~2016-11-11] MED LIST changes: +ACET325T9 PO; +ALPR0.25 PO; +CALC-77 PO; +CIPR500T94 PO; +DIPH25CA58 PO; +HYDR-2758 PO; +PNV1TABL25 PO; +PROAIR HFA8.5 GM INH; +SIMV40TA3 PO
--- NOTE | 2016-11-11 15:25 | RAD ---
PA and lateral chest x-ray compared to similar exam dated October 21, 2016 for pneumonia follow-up. Findings: The lungs are hyperinflated, which may reflect COPD or increased inspiratory effort. Correlate clinically. No focal parenchymal abnormalities are identified. Densely calcified granuloma on the left is unchanged. Heart size within normal limits. No significant osseous abnormality. Impression: 1. No acute cardiopulmonary normality. 2. Hyperinflation. This can be seen with COPD or increased inspiratory effort.
== END | disposition home or self-care (01) ==
LOC: RAD 10:12
PROVIDERS: ATTEND Internal Medicine
DX: J18.9 Pneumonia, unspecified organism (principal); J84.10 Pulmonary fibrosis, unspecified
CPT/HCPCS: 71020

== ENCOUNTER → 2016-12-01 | Day surgery (SDC) | payer MEDICARE, BC ==
[~2016-12-01] MED LIST changes: +ALBUTEROL SULFATE 2.5 MG/3 ML NEBU. NEB ONE; +ASPI-482 PO; +HYDR-2762 PO; +HYDROmorphone 2 MG/ML VIAL IV PRN; +IV RINGERS,LACTATED 1000ML 1,000 ML IV SCH; +LIDOCAINE 1% PF 2 ML VIAL. ID PRN; +LIDOCAINE 2% PF Vial for OR 5 ML VIAL. ONE; +MORPHINE SULFATE 2 MG/ML DISP.SYRIN. IV PRN; +ONDANSETRON PF 4 MG/2 ML VIAL. IV PRN; +PROCHLORPERAZINE 10 MG/2 ML VIAL. IV PRN; +PROPOFOL 20 ML IV ONE; +TIOT18CA IH; +ZOLP10TA4 PO; +fentaNYL PF VIAL 100 MCG/2 ML VIAL IV PRN
[2016-12-01 11:33] LABS: BASO % 0 % (0-3); EOS % 1 % (0-3); HEMATOCRIT 38.8 % (36.0-47.0); LYMPH # 1.5 x10^3/uL (1.0-4.8); LYMPH % 24 % (24-48); MEAN CORPUSCULAR HEMOGLOBIN 33 pg (25-35); MEAN CORPUSCULAR HGB CONC 33 g/dL (31-37); MEAN CORPUSCULAR VOLUME 99 fL (79-100); MONO % 7 % (0-9); NEUT % 68 % (31-73); PLATELET COUNT 231 x10^3/uL (140-400); RED BLOOD COUNT 3.93 x10^6/uL (3.50-5.40); RED CELL DISTRIBUTION WIDTH 13.2 % (11.5-14.5); WHITE BLOOD COUNT 6.3 x10^3/uL (4.0-11.0)
[2016-12-01 11:42] LABS: PROTHROMBIN TIME PATIENT 12.3 SEC (11.7-14.0)
--- NOTE | 2016-12-01 12:00 | OP ---
DATE OF SURGERY: 12/01/2016 PROCEDURE: Bronchoscopy. INDICATIONS: Abnormal CT chest with persistent right middle lobe atelectasis, rule out mucous plug versus endobronchial lesion. DESCRIPTION OF PROCEDURE: Informed consent was obtained from the patient. All risks and benefits were explained. She agreed to proceed with the procedure. Propofol was used by Anesthesia for sedation. Bronch was introduced through the right nostril. The upper airway was passed. Vocal cords moved equally with respiration. Trachea was entered, no tracheal lesion seen. The right lung was first examined. All the subsegments of right upper, right middle and right lower lobe were visualized. No endobronchial lesions seen, no purulent secretions seen and no mucus plugs seen. There was special attention paid to the right middle lobe. The opening was slightly narrow, but no endobronchial lesion seen. Bronchoalveolar lavage performed from the right middle lobe. The left lung was likewise examined. All the subsegments of left upper lobe, lingula and left lower lobe were examined. No secretions seen, no endobronchial lesion seen. The patient tolerated the procedure well. IMPRESSION: 1. No evidence of any mucous plug or endobronchial lesion seen in the right middle lobe. The opening was slightly narrow, but the mucosa was normal. 2. Bronchoalveolar lavage performed from the right middle lobe. 3. Follow the cultures and follow up as needed. KATT FLETCHER MD DR: ZEUS/zander JOB#: [id number] / [id number]
[2016-12-01 12:17] VITALS: BP 151/76
--- NOTE | 2016-12-02 16:12 | PATHOLOGY ---
CYTOPATHOLOGY REPORT CLINICAL HISTORY: Lung Mass SPECIMEN(S) RECEIVED: A.Bronchoalveolar lavage, RML FINAL DIAGNOSIS: Right middle lobe bronchoalveolar lavage, ThinPrep: - No malignant cells identified. - Sparsely cellular specimen consisting of a few bronchial epithelial cells, pulmonary macrophages, and inflammatory cells. (JPM:mgr; 12/02/2016) PATHOLOGIST: Fitz Laura M.D. REPORT ELECTRONICALLY SIGNED BY: Fitz Laura M.D. DATE/TIME: 12/02/2016 16:11 GROSS PATHOLOGY: A. Bronchoalveolar lavage, RML: The specimen is submitted unfixed, labeled "Anisa Mukherjee". Received by the Cytology Department is less than one mL of clear colorless fluid. One ThinPrep slide was prepared. (mm 12.01.2016) ADDICTION MEDICINE PHYSICIAN(S): BRYANT Owens(ASCP) INITIAL CPT CODE(S): A; 92495 Professional services performed by [facility] [place] [address] Technical services performed by [facility] at [address] [place] [address], [address], [place] [address]. PATIENT: ANISA MUKHERJEE /AGE: 4 1940 (Age: 76) SEX: F PATIENT #: [id number] ALT CASE #: SPECIMEN COLLECTION DATE: 12/01/2016 SPECIMEN RECEIVED DATE: 12/01/[address] [facility] [address] [place] [address], [address] [place] [address] PHONE: [phone] DIRECTOR: Richy Lauren M.D. * * * END OF REPORT * * *
== END | disposition home or self-care (01) ==
LOC: SURG 11:04
PROVIDERS: ATTEND Internal Medicine Critical Care Medicine
DX: J98.11 Atelectasis (principal); J44.9 Chronic obstructive pulmonary disease, unspecified; F41.9 Anxiety disorder, unspecified; F32.9 Major depressive disorder, single episode, unspecified; Z87.01 Personal history of pneumonia (recurrent); Z79.01 Long term (current) use of anticoagulants; Z87.39 Personal history of other diseases of the musculoskeletal system and connective tissue
CPT/HCPCS: 31624; 36415; 85025; 85610; 87102; 87116; 87205; 88112; 94640; J2704; J7613; 31622; J2001

== ENCOUNTER → 2017-02-01 | Outpatient (CLI) | payer MEDICARE, BC ==
[2016-12-01 12:17] VITALS: BP 151/76
[~2017-02-01] MED LIST changes: -ALBUTEROL SULFATE 2.5 MG/3 ML NEBU. NEB ONE; -HYDROmorphone 2 MG/ML VIAL IV PRN; -IV RINGERS,LACTATED 1000ML 1,000 ML IV SCH; -LIDOCAINE 1% PF 2 ML VIAL. ID PRN; -LIDOCAINE 2% PF Vial for OR 5 ML VIAL. ONE; -MORPHINE SULFATE 2 MG/ML DISP.SYRIN. IV PRN; -ONDANSETRON PF 4 MG/2 ML VIAL. IV PRN; -PROCHLORPERAZINE 10 MG/2 ML VIAL. IV PRN; -PROPOFOL 20 ML IV ONE; -fentaNYL PF VIAL 100 MCG/2 ML VIAL IV PRN
--- NOTE | 2017-02-01 13:01 | RAD ---
DATE: 02/01/2017. EXAM: DIGITAL SCREEN BILAT W/CAD. HISTORY: Routine mammographic screening. COMPARISON: 01/08/2016. This study was interpreted with the benefit of Computerized Aided Detection (CAD). FINDINGS: The breast parenchyma is primarily fatty replaced. Breast parenchyma level density A.. There are no suspicious masses, microcalcifications or architectural distortion. Scattered and vascular calcifications are benign. BI-RADS CATEGORY: 2 BENIGN FINDING(S). RECOMMENDED FOLLOW-UP: 12M 12 MONTH FOLLOW-UP. PQRS compliance statement: Patient information was entered into a reminder system with a target due date 02/01/2018 for the next mammogram. Mammography is a sensitive method for finding small breast cancers, but it does not detect them all and is not a substitute for careful clinical examination. A negative mammogram does not negate a clinically suspicious finding and should not result in delay in biopsying a clinically suspicious abnormality. "Our facility is accredited by the [employer] Mammography [employer]."
== END | disposition home or self-care (01) ==
LOC: MAMMO 12:33
PROVIDERS: ATTEND Internal Medicine
DX: Z12.31 Encounter for screening mammogram for malignant neoplasm of breast (principal)
CPT/HCPCS: G0202; 77067

== ENCOUNTER → 2017-10-19 | Outpatient (CLI) | payer MEDICARE, BC | END | disposition home or self-care (01) | LOC: KCIC DEXA 11:57 | DX: M85.88 Other specified disorders of bone density and structure, other site (principal); R89.1 Abnormal level of hormones in specimens from other organs, systems and tissues | CPT/HCPCS: 77080 ==

== ENCOUNTER → 2018-02-21 | Outpatient (CLI) | payer MEDICARE, BC ==
[2016-12-01 12:17] VITALS: BP 151/76
[~2018-02-21] MED LIST changes: -HYDR-2758 PO; +HYDR-2761 PO; -HYDR-2762 PO; +HYDR-2765 PO
--- NOTE | 2018-02-21 11:48 | CARD ---
MR#: [id number] Date of Study: 02/21/2018 Ordering Physician: NOHELIA JOHNSON, Referring Physician: NOHELIA JOHNSON, Tech: Komal Pavon RICK APPROVED REPORT EXAM: Two-dimensional and M-mode echocardiogram with Doppler and color Doppler. Other Information Quality : AverageHR: 87bpm Rhythm : NSRTechnically limited study due to COPD. INDICATION Murmur 2D DIMENSIONS RVDd2.8 (2.9-3.5cm)Left Atrium(2D)3.3 (1.6-4.0cm) IVSd1.0 (0.7-1.1cm)Aortic Root(2D)3.1 (2.0-3.7cm) LVDd4.4 (3.9-5.9cm)LVOT Diameter1.8 (1.8-2.4cm) PWd1.0 (0.7-1.1cm)LVDs3.1 (2.5-4.0cm) FS (%) 29.9 %SV51.2 ml LVEF(%)57.2 (>50%) M-Mode DIMENSIONS Left Atrium(MM)3.44 (2.5-4.0cm)Aortic Root2.85 (2.2-3.7cm) Aortic Valve AoV Peak Alberto.108.9cm/sAoV VTI20.5cm AO Peak GR.4.7mmHgLVOT Peak Alberto.90.7cm/s AO Mean GR.2mmHgAVA (VMAX)2.22cm2 RONALDO (VTI)2.20cm2 Mitral Valve MV E Myildshg81.0cm/sMV DECEL OBUR303gb MV A Lcjygyou468.1cm/sE/A Ratio0.6 MV A Sqqluogk193ox Pulmonary Valve PV Peak Kfooxmfz09.0cm/s Tricuspid Valve TR P. Rhtqqusw209od/sRAP VCNNUQIP2qnAn TR Peak Gr.27cmBvZPRZ71bcBm LEFT VENTRICLE The left ventricle is normal size. There is normal left ventricular wall thickness. The left ventricu lar systolic function is normal. The Ejection Fraction is 55-60%. There is normal LV segmental wall m otion. Transmitral Doppler flow pattern is Grade I-abnormal relaxation pattern. RIGHT VENTRICLE The right ventricle is normal size. There is normal right ventricular wall thickness. The right ventr icular systolic function is normal. ATRIA The left atrium size is normal. The right atrium is mildly dilated. The interatrial septum is intact with no evidence for an atrial septal defect or patent foramen ovale as noted on 2-D or Doppler imagi ng. AORTIC VALVE The aortic valve is normal in structure and function. The aortic valve is trileaflet. Doppler and Col or Flow revealed trace aortic regurgitation. There is no significant aortic valvular stenosis. MITRAL VALVE The mitral valve is thickened but opens well. There is no evidence of mitral valve prolapse. There is no mitral valve stenosis. Doppler and Color-flow revealed trace mitral regurgitation. TRICUSPID VALVE The tricuspid valve is normal in structure and function. Doppler and Color Flow revealed mild tricusp id regurgitation. There is mild pulmonary hypertension. The PA pressure was estimated at 32 mmHg. The re is no tricuspid valve prolapse or vegetation. There is no tricuspid valve stenosis. PULMONIC VALVE The pulmonary valve is normal in structure and function. Doppler and Color Flow revealed trace pulmon ic valvular regurgitation. There is no pulmonic valvular stenosis. GREAT VESSELS The aortic root is normal in size. The ascending aorta is normal in size. The IVC is normal in size a nd collapses >50% with inspiration. PERICARDIAL EFFUSION There is no evidence of significant pericardial effusion. Critical Notification Critical Value: No <Conclusion> The left ventricular systolic function is normal. The Ejection Fraction is 55-60%. There is normal LV segmental wall motion. Transmitral Doppler flow pattern is Grade I-abnormal relaxation pattern. Trace mitral regurgitation. Mild tricuspid regurgitation. There is mild pulmonary hypertension. The PA pressure was estimated at 32 mmHg. There is no evidence of significant pericardial effusion. Signed by : Milton Loving, Electronically Approved : 02/21/2018 11:46:38
== END | disposition home or self-care (01) ==
LOC: ECHO 10:44
PROVIDERS: ATTEND Internal Medicine Cardiovascular Disease
DX: I36.1 Nonrheumatic tricuspid (valve) insufficiency (principal); I27.20 Pulmonary hypertension, unspecified; J44.9 Chronic obstructive pulmonary disease, unspecified
CPT/HCPCS: 93306

== ENCOUNTER → 2018-11-06 | Outpatient (CLI) | payer MEDICARE, BC ==
[2016-12-01 12:17] VITALS: BP 151/76
[~2018-11-06] MED LIST changes: +ALBU2.5V8 INH; -PROAIR HFA8.5 GM INH
--- NOTE | 2018-11-06 12:10 | RAD ---
PQRS Compliance Statement: One or more of the following individualized dose reduction techniques were utilized for this examination: 1. Automated exposure control 2. Adjustment of the mA and/or kV according to patient size 3. Use of iterative reconstruction technique CT chest without contrast 11/06/2018 CT thoracic spine without contrast INDICATION: COPD, mid back and rib pain COMPARISON: CT chest 10/17/2016 TECHNIQUE: Multiple axial CT images of the chest were obtained without intravenous contrast. Coronal and sagittal reformats are provided. 2-D reconstructions of the thoracic spine are provided. FINDINGS: There is a 14 mm calcified granuloma the left lung base. Mild centrilobular pulmonary emphysema. There is an 8 mm solid noncalcified pulmonary nodule in the posterior right upper lobe (series 2, image 19). This finding is stable dating back to 10/17/2016 and favors benign etiology such as noncalcified granulomatous disease or scarring. No new or enlarging solid noncalcified pulmonary nodules. Subsegmental atelectasis is identified in the lingula and right middle lobe. No pathologically enlarged thoracic lymph nodes. Heart size is within normal limits. No significant pericardial effusion. Thoracic aorta is normal in course and caliber measuring up to 3.7 cm. Moderate calcified atheromatous plaque is identified. No suspicious abnormalities identified in the visualized portions of the upper abdomen. Alignment of the thoracic spine is normal. Vertebral body heights are maintained. Disc heights are maintained. Inferior endplate Schmorl's node is identified at T10 without significant height loss. Minimal anterior marginal osteophytosis is present. There is no significant osseous neuroforaminal or spinal canal stenosis. No paraspinal soft tissue normality is identified. Spinous processes and transverse processes are intact. Ribs are intact without acute displaced fracture. IMPRESSION: 1. 8 mm solid noncalcified pulmonary nodule in the posterior right upper lobe is stable dating back to the 10/17/2016 and presumed benign. This finding is associated with bandlike density may represent scarring. 2. No acute fracture or malalignment of the thoracic spine. 3. Mild centrilobular pulmonary emphysema. Electronically signed by: Kaylin Waddell MD (11/06/2018 12:07 PM) [id number]
== END | disposition home or self-care (01) ==
LOC: CT 11:01
PROVIDERS: ATTEND Internal Medicine
DX: J43.2 Centrilobular emphysema (principal); J84.10 Pulmonary fibrosis, unspecified; R91.8 Other nonspecific abnormal finding of lung field; J98.11 Atelectasis; I70.0 Atherosclerosis of aorta
CPT/HCPCS: 71250

== ENCOUNTER 2019-04-26 10:02 | Inpatient (IN) | payer MEDICARE, BC ==
[~2019-04-26] VITALS: Ht 160 cm; Wt 77.5 kg
[~2019-04-26 10:02] MED LIST changes: +SIMV40TA18 PO; -SIMV40TA3 PO
[2019-04-26] MEDS ORDERED: IV NORMAL SALINE 1000ML BAG 1,000 ML IV SCH (10:09)
[2019-04-26] MEDS ORDERED: dilTIAZem IV PUSH 25 MG/5 ML VIAL ONE (10:12)
[2019-04-26] MEDS ORDERED: dilTIAZem INJ 125 MG in IV NORMAL SALINE 100ML 100 ML IV ONE (10:15)
[2019-04-26] MEDS ORDERED: dilTIAZem IV PUSH 25 MG/5 ML VIAL IVP ONE (10:15)
[2019-04-26 10:33] LABS: BASO % 0 % (0-3); EOS # 0.1 x10^3/uL (0.0-0.7); EOS % 1 % (0-3); HEMATOCRIT 37.7 % (36.0-47.0); HEMOGLOBIN 12.4 g/dL (12.0-15.5); LYMPH # 1.2 x10^3/uL (1.0-4.8); LYMPH % 17 % (24-48); MEAN CORPUSCULAR HEMOGLOBIN 32 pg (25-35); MEAN CORPUSCULAR HGB CONC 33 g/dL (31-37); MEAN CORPUSCULAR VOLUME 98 fL (79-100); MONO # 0.4 x10^3/uL (0.0-1.1); MONO % 6 % (0-9); NEUT # 5.1 x10^3/uL (1.8-7.7); NEUT % 76 % (31-73); PLATELET COUNT 299 x10^3/uL (140-400); RED BLOOD COUNT 3.84 x10^6/uL (3.50-5.40); RED CELL DISTRIBUTION WIDTH 13.2 % (11.5-14.5); WHITE BLOOD COUNT 6.8 x10^3/uL (4.0-11.0)
--- NOTE | 2019-04-26 10:35 | RAD ---
PORTABLE CHEST 1V Clinical indications: Atrial fibrillation with rapid ventricular response COMPARISON: November 11, 2016. Findings: Mild bilateral interstitial pulmonary edema is seen. Small bilateral pleural effusions are evident. No pneumothorax is seen. The heart size and mediastinum and both andrey are stable. Chronic cephalization of pulmonary flow is seen. IMPRESSION: Mild CHF. Electronically signed by: Torrey Clinton MD (04/26/2019 10:32 AM) [facility]
[2019-04-26 10:41] LABS: CALCIUM 8.9 mg/dL (8.5-10.1); CREATININE 0.8 mg/dL (0.6-1.0); GFR 69.7; POTASSIUM 4.5 mmol/L (3.5-5.1)
[2019-04-26 10:46] LABS: ALBUMIN 3.6 g/dL (3.4-5.0); ALBUMIN/GLOBULIN RATIO 1.2 (1.0-1.7); MAGNESIUM 1.7 mg/dL (1.8-2.4); TOTAL BILIRUBIN 0.4 mg/dL (0.2-1.0); TOTAL PROTEIN 6.7 g/dL (6.4-8.2)
[2019-04-26 10:48] LABS: PROTHROMBIN TIME PATIENT 14.1 SEC (11.7-14.0)
--- NOTE | 2019-04-26 10:54 | PHYS DOC ---
Past Medical History Past Medical History: COPD Past Surgical History: No Surgical History Smoking Status: Former Smoker Alcohol Use: Occasionally Drug Use: None Adult General Chief Complaint Chief Complaint: RAPID HEART RATE HPI HPI Patient is a 78 year old female with history of COPD, anxiety, dyslipidemia who presents via EMS with complaint of shortness of breath. Patient complaining of shortness of breath since 5:30 this morning as a constant problem with palpitation, dizziness, generalized weakness. Patient denies chest pain, focal neuro deficit, fever and chills, cough and congestion. Patient states she gets episodes of anxiety recently but today lasted longer than usual. EMS reported that patient had O2 sat of 92% at room air and was started on CPAP. Patient also heart rate of 176 reported by EMS as a sinus tachycardia. Review of Systems Review of Systems Constitutional: Denies fever or chills [] Eyes: Denies change in visual acuity, redness, or eye pain [] HENT: Denies nasal congestion or sore throat [] Respiratory: Denies cough, reported shortness of breath [] Cardiovascular: No additional information not addressed in HPI [] GI: Denies abdominal pain, nausea, vomiting, bloody stools or diarrhea [] : Denies dysuria or hematuria [] Musculoskeletal: Denies back pain or joint pain [] Integument: Denies rash or skin lesions [] Neurologic: Denies headache, focal weakness or sensory changes [] Endocrine: Denies polyuria or polydipsia [] All other systems were reviewed and found to be within normal limits, except as documented in this note. Current Medications Current Medications Current Medications Medications (Trade) Dose Ordered Sig/Bert Start Time Stop Time Status Last Admin Dose Admin Diltiazem HCl (Cardizem Iv Push) 25 mg STK-MED ONCE 04/26/19 10:12 04/26/19 10:13 DC Diltiazem HCl 125 mg/Sodium Chloride 125 ml @ 10 mls/hr 1X ONCE 04/26/19 10:15 04/26/19 22:44 04/26/19 10:25 5 MLS/HR Sodium Chloride 1,000 ml @ 100 mls/hr Q10H 04/26/19 10:09 04/26/19 15:13 DC 04/26/19 10:20 100 MLS/HR Allergies Allergies Allergies Coded Allergies Type Severity Reaction Last Updated Verified No Known Drug Allergies 10/05/15 No Physical Exam Physical Exam Constitutional: Well developed, well nourished, moderate distress, non-toxic appearance. [] HENT: Normocephalic, atraumatic, bilateral external ears normal, oropharynx dry, no oral exudates, nose normal. [] Eyes: PERRLA, EOMI, conjunctiva normal, no discharge. [] Neck: Normal range of motion, no tenderness, supple, no stridor. [] Cardiovascular: Irregularly irregular rhythm with tachycardia, no murmur [] Lungs & Thorax: Hyperventilation with intercostal retraction and tachypnea, mild wheezing and rhonchi Abdomen: Bowel sounds normal, soft, no tenderness, no masses, no pulsatile masses. [] Skin: Warm, dry, no erythema, no rash. [] Back: No tenderness, no CVA tenderness. [] Extremities: No tenderness, no cyanosis, no clubbing, ROM intact, no edema. [] Neurologic: Alert and oriented X 3, normal motor function, normal sensory function, no focal deficits noted. [] Psychologic: Affect anxious, judgement normal, mood normal. [] Current Patient Data Vital Signs Vital Signs Date Time Temp Pulse Resp B/P (MAP) Pulse Ox O2 Delivery O2 Flow Rate FiO2 04/26/19 10:21 118 29 96 04/26/19 10:20 127/76 04/26/19 10:02 98.6 Nasal Cannula 4.0 98.6 Lab Values Laboratory Tests Test 04/26/19 10:09 04/26/19 10:10 Prothrombin Time 14.1 SEC (11.7-14.0) H Prothrombin Time INR 1.1 (0.8-1.1) D-Dimer (Rebecca) 1.85 ug/mlFEU (0.00-0.50) H White Blood Count 6.8 x10^3/uL (4.0-11.0) Red Blood Count 3.84 x10^6/uL (3.50-5.40) Hemoglobin 12.4 g/dL (12.0-15.5) Hematocrit 37.7 % (36.0-47.0) Mean Corpuscular Volume 98 fL (79-100) Mean Corpuscular Hemoglobin 32 pg (25-35) Mean Corpuscular Hemoglobin Concent 33 g/dL (31-37) Red Cell Distribution Width 13.2 % (11.5-14.5) Platelet Count 299 x10^3/uL (140-400) Neutrophils (%) (Auto) 76 % (31-73) H Lymphocytes (%) (Auto) 17 % (24-48) L Monocytes (%) (Auto) 6 % (0-9) Eosinophils (%) (Auto) 1 % (0-3) Basophils (%) (Auto) 0 % (0-3) Neutrophils # (Auto) 5.1 x10^3/uL (1.8-7.7) Lymphocytes # (Auto) 1.2 x10^3/uL (1.0-4.8) Monocytes # (Auto) 0.4 x10^3/uL (0.0-1.1) Eosinophils # (Auto) 0.1 x10^3/uL (0.0-0.7) Basophils # (Auto) 0.0 x10^3/uL (0.0-0.2) Sodium Level 142 mmol/L (136-145) Potassium Level 4.5 mmol/L (3.5-5.1) Chloride Level 104 mmol/L (98-107) Carbon Dioxide Level 24 mmol/L (21-32) Anion Gap 14 (6-14) Blood Urea Nitrogen 14 mg/dL (7-20) Creatinine 0.8 mg/dL (0.6-1.0) Estimated GFR (Cockcroft-Gault) 69.7 BUN/Creatinine Ratio 18 (6-20) Glucose Level 205 mg/dL (70-99) H Calcium Level 8.9 mg/dL (8.5-10.1) Magnesium Level 1.7 mg/dL (1.8-2.4) L Total Bilirubin 0.4 mg/dL (0.2-1.0) Aspartate Amino Transferase (AST) 24 U/L (15-37) Alanine Aminotransferase (ALT) 39 U/L (14-59) Alkaline Phosphatase 78 U/L (46-116) Creatine Kinase 117 U/L (26-192) Troponin I Quantitative < 0.017 ng/mL (0.000-0.055) JK-Hkh-Q-Type Natriuretic Peptide 1952 pg/mL (0-449) H Total Protein 6.7 g/dL (6.4-8.2) Albumin 3.6 g/dL (3.4-5.0) Albumin/Globulin Ratio 1.2 (1.0-1.7) Triglycerides Level 125 mg/dL (0-150) Cholesterol Level 155 mg/dL (0-200) LDL Cholesterol, Calculated 93 mg/dL (0-100) VLDL Cholesterol, Calculated 25 mg/dL (0-40) Non-HDL Cholesterol Calculated 118 mg/dL (0-129) HDL Cholesterol 37 mg/dL (40-60) L Cholesterol/HDL Ratio 4.2 Thyroid Stimulating Hormone (TSH) 1.416 uIU/mL (0.358-3.74) Laboratory Tests 04/26/19 10:10 Laboratory Tests 04/26/19 10:10 EKG EKG EKG interpreted by me. EKG at 1007 showed atrial fibrillation with RVR at rate of 178, multiple artifact, no acute ST and T-wave elevation. Radiology/Procedures Radiology/Procedures [facility] [address] [place] [address] IMAGING REPORT Signed PATIENT: CHRISS MUKHERJEE ACCOUNT: [id number] : 1940 LOCATION: ER AGE: 78 SEX: F EXAM STATUS: REG ER ORD. PHYSICIAN: HOUSTON MENDOZA MD REASON: atrial fibrillation with RVR PROCEDURE: PORTABLE CHEST 1V PORTABLE CHEST 1V Clinical indications: Atrial fibrillation with rapid ventricular response COMPARISON: November 11, 2016. Findings: Mild bilateral interstitial pulmonary edema is seen. Small bilateral pleural effusions are evident. No pneumothorax is seen. The heart size and mediastinum and both andrey are stable. Chronic cephalization of pulmonary flow is seen. IMPRESSION: Mild CHF. Electronically signed by: Bobby Clinton MD (04/26/2019 10:32 AM) [facility] DICTATED and SIGNED BY: BOBBY CLINTON MD DATE: 04/26/19 1032 Course & Med Decision Making Course & Med Decision Making Pertinent Labs and Imaging studies reviewed. (See chart for details) Evaluation of patient in ER showed 78-year-old female patient without history of atrial fibrillation brought in by EMS with complaining of shortness of breath. Patient had atrial flutter patient with RVR at arrival to ER treated with Cardizem bolus and drip with improvement of heart rate and her condition. She did not have history of diabetes but had blood sugar of 205. Magnesium was low at 1.6 and IV magnesium was given.Patient requiring admission for further evaluation and treatment. Discussed with Dr. Hackett who is in agreement with admission. Discussed findings and plan with patient and family, who acknowledge understanding and agreement. Dragon Disclaimer Dragon Disclaimer This electronic medical record was generated, in whole or in part, using a voice recognition dictation system. Departure Departure Impression: Primary Impression: Atrial fibrillation with RVR Additional Impressions: Respiratory distress Hypomagnesemia Panic attack Hyperglycemia CHF (congestive heart failure) Elevated d-dimer Disposition: ADMITTED INPATIENT (at 1110) Admitting Physician: Mandie Hackett (accepted admission at 1109) Condition: GUARDED Referrals: MANDIE HACKETT MD (PCP) Critical Care Time Critical care time was 60 minutes exclusive of procedures. Problem Qualifiers Additional Impressions: CHF (congestive heart failure) Heart failure type: unspecified Heart failure chronicity: unspecified Qualified Codes: I50.9 - Heart failure, unspecified HOUSTON MENDOZA MD Apr 26, 2019 10:54
[2019-04-26] MEDS ORDERED: MAGNESIUM SULFATE 2GM 50 ML IV ONE (11:15)
[2019-04-26 11:49] LABS: D-DIMER 1.85 ug/mlFEU (0.00-0.50)
--- NOTE | 2019-04-26 11:51 | EKG ---
[facility] [address] [place] [address] Test Date: 2019-04-26 Test Time: 10:07:55 Pat Name: CHRISS MUKHERJEE Department: Room: Gender: F Extract Wringer: : 1940 Requested By: HOUSTON MENDOZA Order Number: [id number] Reading MD: Measurements Intervals [place] Rate: 177 P: [place]: QRS: 67 QRSD: 72 T: -165 QT: 250 QTc: 431 Interpretive Statements ATRIAL FIB./FLUTTER WITH RAPID VENTRICULAR RESPONSE QRS(T) CONTOUR ABNORMALITY CONSIDER ANTEROSEPTAL MYOCARDIAL DAMAGE ST & T ABNORMALITY, CONSIDER INFERIOR ISCHEMIA OR LEFT VENTRICULAR STRAIN T ABNORMALITY IN HIGH LATERAL LEADS ABNORMAL ECG No previous ECG available for comparison
[2019-04-26] MEDS ORDERED: HYDROcodone/APAP 7.5/325MG 1 TAB TABLET PO ONE (12:30)
[2019-04-26] MEDS ORDERED: CONTRAST GIVEN. MC PRN (12:45)
[2019-04-26] MEDS ORDERED: IOHEXOL 350 MG/ML 100 ML VIAL. IV ONE (12:45)
[2019-04-26 13:10] VITALS: BP 179/97
--- NOTE | 2019-04-26 13:12 | RAD ---
Chest CTA History: Elevated d-dimer, shortness of breath, hypoxemia Technique: After bolus of intravenous contrast, CT imaging was performed of the chest. Multiplanar reconstruction images to include MIP reconstruction images are submitted. Exposure: One or more of the following individualized dose reduction techniques were utilized for this examination: 1. Automated exposure control 2. Adjustment of the mA and/or kV according to patient size 3. Use of iterative reconstruction technique. Comparison: November 06, [address] exam; October 17, 2016 Findings: There is some motion. There are small dependent pleural effusions bilaterally, right greater than left. There is no pericardial effusion or pneumothorax. There is again centrilobular emphysema with upper zone predominance. There is some reticular density bilaterally greater of the lower lobes right greater than left likely component of atelectasis. There is mild dependent infiltrate or atelectasis of the left lower lobe. There is again calcified nodule of the left lower lobe near the base. There is reflux of contrast into the hepatic veins. There is again chronic consolidation of the right middle lobe with air bronchograms. No convincing acute pulmonary embolism is identified, limited evaluation of the smaller and more distal branches. Focus of noncalcified parenchymal density of the posterior right upper lobe image 48 series 3 about 1.1 cm AP by 0.7 cm transverse with an adjacent focus of somewhat nodular appearing density posteriorly up to 0.6 cm transverse is overall very similar to the October 2016 exam. Borderline sized subcarinal node about 1 cm short axis dimension is larger as previously about 0.5 cm. Right pretracheal node measures about 1 cm short axis dimension versus previously 0.6 cm. Impression: 1. No convincing acute pulmonary embolism is identified. 2. There are small bilateral pleural effusions bilaterally, right greater than left. There is also some reflux of contrast into the hepatic veins. Constellation of findings could be seen with heart failure. There is mild dependent atelectasis or infiltrate left lower lobe, other likely atelectasis bilaterally. 3. There is emphysema. 4. There is again chronic consolidation of the right middle lobe. There is stable focus of noncalcified nodular appearing density of the posterior right upper lobe comparing with October 2016 exam. 5. There are some nonspecific, borderline enlarged mediastinal nodes, larger than previously. Electronically signed by: Bobby Méndez MD (04/26/2019 1:10 PM) [id number]
[2019-04-26 13:44] LABS: BILIRUBIN,URINE NEGATIVE (NEG); CLARITY,URINE CLEAR; COLOR,URINE YELLOW; NITRITE,URINE NEGATIVE (NEG); PH,URINE 5.5; PROTEIN,URINE NEGATIVE (NEG-TRACE); UROBILINOGEN,URINE 0.2 mg/dL (0.2 mg/dL)
[2019-04-26 14:04] LABS: BACTERIA,URINE 0 /HPF (0-FEW); HYALINE CASTS, URINE OCCASIONAL /HPF; RBC,URINE RARE /HPF (0-2); SQUAMOUS EPITHELIAL CELL,UR OCC /LPF; WBC,URINE RARE /HPF (0-4)
[2019-04-26] MEDS: ALBUTEROL SULFATE 2.5 MG/3 ML NEBU. NEB SCH ×2 (14:56→19:34)
[2019-04-26 15:00] VITALS: BP 127/87
[2019-04-26] MEDS ORDERED: FUROSEMIDE 40 MG/4 ML VIAL. IVP ONE (15:15)
[2019-04-26] MEDS ORDERED: PANTOPRAZOLE 40 MG TABLET.DR. PO ONE (15:15)
--- NOTE | 2019-04-26 15:23 | PDOC2 ---
CARDIAC CONSULT DATE OF CONSULT Date of Consult DATE: 04/26/19 TIME: 1345 REASON FOR CONSULT Reason for Consult: AFIB RVR REFERRING PHYSICIAN Referring Physician: Zayda SOURCE Source: Chart review, Patient HISTORY OF PRESENT ILLNESS HISTORY OF PRESENT ILLNESS This is a pleasant 78 yo female admitted for complains of shortness. of breath. Her symptoms became more sustained and worse this last Tuesday. She has been moe ving SOA in the last 5 weeks and sometimes she improves and then come back. Positive for nonproductive cough with no fever and does have occasional chest tightness and some palpitations. Sometimes does have some dizziness. No recent falls or injury. No fever or chills. No changes in her meds. She does have COPD and compliant with her meds. She does not use oxygen regularly and has not been told of any MARIS. No recent surgery. Has been noticing leg swelling and positive for orthopnea. Upon admission she was noted with AFIB which is new for her. She also has been having heartburn more than usual. No hx of past arrhythmia and no CAD and VTE. PAST MEDICAL HISTORY Cardiovascular: Hyperlipidemia Pulmonary: COPD, Other (pulmonary nodules) CENTRAL NERVOUS SYSTEM: Other (No pertinent history) Heme/Onc: No pertinent hx Hepatobiliary: No pertinent hx Psych: Anxiety Musculoskeletal: Osteoarthritis Rheumatologic: No pertinent hx Infectious disease: No pertinent hx ENT: No pertinent hx Renal/: No pertinent hx Endocrine: No pertinent hx Dermatology: No pertinent hx PAST SURGICAL HISTORY Past Surgical History: Other (lung biopsy) FAMILY HISTORY Family History noncontributory SOCIAL HISTORY Smoke: Quit ALCOHOL: occassional Drugs: None Lives: with Family CURRENT MEDICATIONS CURRENT MEDICATIONS Current Medications Medications (Trade) Dose Ordered Sig/Bert Route PRN Reason Start Time Stop Time Status Last Admin Dose Admin Diltiazem HCl (Cardizem Iv Push) 20 mg 1X ONCE IVP 04/26/19 10:15 04/26/19 10:16 DC 04/26/19 10:20 Diltiazem HCl 125 mg/Sodium Chloride 125 ml @ 10 mls/hr 1X ONCE IV 04/26/19 10:15 04/26/19 22:44 04/26/19 10:25 Sodium Chloride 1,000 ml @ 100 mls/hr Q10H IV 04/26/19 10:09 04/26/19 20:08 04/26/19 10:20 Lorazepam (Ativan Inj) 0.5 mg 1X ONCE IVP 04/26/19 11:00 04/26/19 11:01 DC 04/26/19 12:15 Magnesium Sulfate 50 ml @ 25 mls/hr 1X ONCE IV 04/26/19 11:15 04/26/19 13:14 DC 04/26/19 12:15 Iohexol (Omnipaque 350 Mg/ml) 90 ml 1X ONCE IV 04/26/19 12:45 04/26/19 12:46 DC 04/26/19 12:46 Albuterol Sulfate (Ventolin Neb Soln) 2.5 mg RTQID NEB 04/26/19 16:00 04/26/19 14:56 ALLERGIES ALLERGIES: Coded Allergies: No Known Drug Allergies (Unverified , 10/05/15) ROS Review of System 14 point ROS evaluated with pertinent positives noted per HPI PHYSICAL EXAM General: Alert, Oriented X3, Cooperative, moderate distress HEENT: Atraumatic, Mucous membr. moist/pink Lungs: Other (diminsiehd with basilar crackles) Heart: Other (AFIB RVR) Abdomen: Soft, No tenderness Extremities: No cyanosis, Other (2+ bilateral LE pitting edema) Skin: No breakdown, No significant lesion Neuro: Normal speech, Sensation intact Psych/Mental Status: Mental status NL, Mood NL MUSCULOSKELETAL: Osteoarthritic changes both hands VITALS/I&O VITALS/I&O: Vital Signs Date Time Temp Pulse Resp B/P (MAP) Pulse Ox O2 Delivery O2 Flow Rate FiO2 04/26/19 14:56 96 Nasal Cannula 3.0 04/26/19 13:10 97.4 126 22 179/97 (124) 97.4 LABS Lab: Laboratory Tests Test 04/26/19 10:09 04/26/19 10:10 04/26/19 13:30 Prothrombin Time 14.1 SEC (11.7-14.0) H Prothrombin Time INR 1.1 (0.8-1.1) D-Dimer (Rebecca) 1.85 ug/mlFEU (0.00-0.50) H White Blood Count 6.8 x10^3/uL (4.0-11.0) Red Blood Count 3.84 x10^6/uL (3.50-5.40) Hemoglobin 12.4 g/dL (12.0-15.5) Hematocrit 37.7 % (36.0-47.0) Mean Corpuscular Volume 98 fL (79-100) Mean Corpuscular Hemoglobin 32 pg (25-35) Mean Corpuscular Hemoglobin Concent 33 g/dL (31-37) Red Cell Distribution Width 13.2 % (11.5-14.5) Platelet Count 299 x10^3/uL (140-400) Neutrophils (%) (Auto) 76 % (31-73) H Lymphocytes (%) (Auto) 17 % (24-48) L Monocytes (%) (Auto) 6 % (0-9) Eosinophils (%) (Auto) 1 % (0-3) Basophils (%) (Auto) 0 % (0-3) Neutrophils # (Auto) 5.1 x10^3/uL (1.8-7.7) Lymphocytes # (Auto) 1.2 x10^3/uL (1.0-4.8) Monocytes # (Auto) 0.4 x10^3/uL (0.0-1.1) Eosinophils # (Auto) 0.1 x10^3/uL (0.0-0.7) Basophils # (Auto) 0.0 x10^3/uL (0.0-0.2) Sodium Level 142 mmol/L (136-145) Potassium Level 4.5 mmol/L (3.5-5.1) Chloride Level 104 mmol/L (98-107) Carbon Dioxide Level 24 mmol/L (21-32) Anion Gap 14 (6-14) Blood Urea Nitrogen 14 mg/dL (7-20) Creatinine 0.8 mg/dL (0.6-1.0) Estimated GFR (Cockcroft-Gault) 69.7 BUN/Creatinine Ratio 18 (6-20) Glucose Level 205 mg/dL (70-99) H Calcium Level 8.9 mg/dL (8.5-10.1) Magnesium Level 1.7 mg/dL (1.8-2.4) L Total Bilirubin 0.4 mg/dL (0.2-1.0) Aspartate Amino Transferase (AST) 24 U/L (15-37) Alanine Aminotransferase (ALT) 39 U/L (14-59) Alkaline Phosphatase 78 U/L (46-116) Creatine Kinase 117 U/L (26-192) Troponin I Quantitative < 0.017 ng/mL (0.000-0.055) ZW-Rpm-A-Type Natriuretic Peptide 1952 pg/mL (0-449) H Total Protein 6.7 g/dL (6.4-8.2) Albumin 3.6 g/dL (3.4-5.0) Albumin/Globulin Ratio 1.2 (1.0-1.7) Thyroid Stimulating Hormone (TSH) 1.416 uIU/mL (0.358-3.74) Urine Collection Type Unknown Urine Color Yellow Urine Clarity Clear Urine pH 5.5 Urine Specific [place] 1.025 Urine Protein Negative mg/dL (NEG-TRACE) Urine Glucose (UA) Negative mg/dL (NEG) Urine Ketones (Stick) Negative mg/dL (NEG) Urine Blood Negative (NEG) Urine Nitrite Negative (NEG) Urine Bilirubin Negative (NEG) Urine Urobilinogen Dipstick 0.2 mg/dL (0.2 mg/dL) Urine Leukocyte Esterase Negative (NEG) Urine RBC Rare /HPF (0-2) Urine WBC Rare /HPF (0-4) Urine Squamous Epithelial Cells Occ /LPF Urine Bacteria 0 /HPF (0-FEW) Urine Hyaline Casts Occasional /HPF Urine Mucus Slight /LPF Laboratory Tests 04/26/19 10:10 Laboratory Tests 04/26/19 10:10 ASSESSMENT/PLAN ASSESSMENT/PLAN 1. AFIB RVR: new 2. Acute diastolic CHF: induced by above 3. AECOPD: per PCP 4. GERD exacerbation 5. Chest pain: multifactorial as above 6. GERD exacerbation 7. HLP Recommendations 1. Continue cardizem drip. Start eliquis. Potential JOVANI/CVN tomorrow. Will discuss with pt. 2. Lasix therapy. Mg replacement. 3. PPI to start. 4. Check TSH and lipids. CANDI MARX CHILLER OPERATOR Apr 26, 2019 15:23
[2019-04-26] MEDS ORDERED: ALBU2.5V8 IH (15:26)
[2019-04-26] MEDS ORDERED: methylPREDNISolone SOD SUCC PF 40 MG/ML VIAL. IV SCH (16:00)
[2019-04-26 16:28] LABS: CHOLESTEROL/HDL RATIO 4.2
--- NOTE | 2019-04-26 18:44 | PDOC ---
PULMONARY PROGRESS NOTES Vitals Vital Signs Date Time Temp Pulse Resp B/P (MAP) Pulse Ox O2 Delivery O2 Flow Rate FiO2 04/26/19 16:11 24 98 Nasal Cannula 3.0 04/26/19 15:00 114 127/87 (100) 04/26/19 13:10 97.4 97.4 General: Alert, No acute distress Lungs: Other Cardiovascular: S1 Abdomen: Soft Extremities: No Edema Labs Laboratory Tests Test 04/26/19 10:09 04/26/19 10:10 04/26/19 13:30 04/26/19 14:10 Prothrombin Time 14.1 SEC (11.7-14.0) Prothromb Time International Ratio 1.1 (0.8-1.1) D-Dimer (Rebecca) 1.85 ug/mlFEU (0.00-0.50) White Blood Count 6.8 x10^3/uL (4.0-11.0) Red Blood Count 3.84 x10^6/uL (3.50-5.40) Hemoglobin 12.4 g/dL (12.0-15.5) Hematocrit 37.7 % (36.0-47.0) Mean Corpuscular Volume 98 fL (79-100) Mean Corpuscular Hemoglobin 32 pg (25-35) Mean Corpuscular Hemoglobin Concent 33 g/dL (31-37) Red Cell Distribution Width 13.2 % (11.5-14.5) Platelet Count 299 x10^3/uL (140-400) Neutrophils (%) (Auto) 76 % (31-73) Lymphocytes (%) (Auto) 17 % (24-48) Monocytes (%) (Auto) 6 % (0-9) Eosinophils (%) (Auto) 1 % (0-3) Basophils (%) (Auto) 0 % (0-3) Neutrophils # (Auto) 5.1 x10^3/uL (1.8-7.7) Lymphocytes # (Auto) 1.2 x10^3/uL (1.0-4.8) Monocytes # (Auto) 0.4 x10^3/uL (0.0-1.1) Eosinophils # (Auto) 0.1 x10^3/uL (0.0-0.7) Basophils # (Auto) 0.0 x10^3/uL (0.0-0.2) Sodium Level 142 mmol/L (136-145) Potassium Level 4.5 mmol/L (3.5-5.1) Chloride Level 104 mmol/L (98-107) Carbon Dioxide Level 24 mmol/L (21-32) Anion Gap 14 (6-14) Blood Urea Nitrogen 14 mg/dL (7-20) Creatinine 0.8 mg/dL (0.6-1.0) Estimated GFR (Cockcroft-Gault) 69.7 BUN/Creatinine Ratio 18 (6-20) Glucose Level 205 mg/dL (70-99) Calcium Level 8.9 mg/dL (8.5-10.1) Magnesium Level 1.7 mg/dL (1.8-2.4) Total Bilirubin 0.4 mg/dL (0.2-1.0) Aspartate Amino Transf (AST/SGOT) 24 U/L (15-37) Alanine Aminotransferase (ALT/SGPT) 39 U/L (14-59) Alkaline Phosphatase 78 U/L (46-116) Creatine Kinase 117 U/L (26-192) Troponin I Quantitative < 0.017 ng/mL (0.000-0.055) < 0.017 ng/mL (0.000-0.055) PZ-Ddd-H-Type Natriuretic Peptide 1952 pg/mL (0-449) Total Protein 6.7 g/dL (6.4-8.2) Albumin 3.6 g/dL (3.4-5.0) Albumin/Globulin Ratio 1.2 (1.0-1.7) Triglycerides Level 125 mg/dL (0-150) Cholesterol Level 155 mg/dL (0-200) LDL Cholesterol, Calculated 93 mg/dL (0-100) VLDL Cholesterol, Calculated 25 mg/dL (0-40) Non-HDL Cholesterol Calculated 118 mg/dL (0-129) HDL Cholesterol 37 mg/dL (40-60) Cholesterol/HDL Ratio 4.2 Thyroid Stimulating Hormone (TSH) 1.416 uIU/mL (0.358-3.74) Urine Collection Type Unknown Urine Color Yellow Urine Clarity Clear Urine pH 5.5 Urine Specific [place] 1.025 Urine Protein Negative mg/dL (NEG-TRACE) Urine Glucose (UA) Negative mg/dL (NEG) Urine Ketones (Stick) Negative mg/dL (NEG) Urine Blood Negative (NEG) Urine Nitrite Negative (NEG) Urine Bilirubin Negative (NEG) Urine Urobilinogen Dipstick 0.2 mg/dL (0.2 mg/dL) Urine Leukocyte Esterase Negative (NEG) Urine RBC Rare /HPF (0-2) Urine WBC Rare /HPF (0-4) Urine Squamous Epithelial Cells Occ /LPF Urine Bacteria 0 /HPF (0-FEW) Urine Hyaline Casts Occasional /HPF Urine Mucus Slight /LPF Test 04/26/19 17:30 Troponin I Quantitative < 0.017 ng/mL (0.000-0.055) Laboratory Tests Test 04/26/19 10:09 04/26/19 10:10 04/26/19 13:30 04/26/19 14:10 Prothrombin Time 14.1 SEC (11.7-14.0) Prothromb Time International Ratio 1.1 (0.8-1.1) D-Dimer (Rebecca) 1.85 ug/mlFEU (0.00-0.50) White Blood Count 6.8 x10^3/uL (4.0-11.0) Red Blood Count 3.84 x10^6/uL (3.50-5.40) Hemoglobin 12.4 g/dL (12.0-15.5) Hematocrit 37.7 % (36.0-47.0) Mean Corpuscular Volume 98 fL (79-100) Mean Corpuscular Hemoglobin 32 pg (25-35) Mean Corpuscular Hemoglobin Concent 33 g/dL (31-37) Red Cell Distribution Width 13.2 % (11.5-14.5) Platelet Count 299 x10^3/uL (140-400) Neutrophils (%) (Auto) 76 % (31-73) Lymphocytes (%) (Auto) 17 % (24-48) Monocytes (%) (Auto) 6 % (0-9) Eosinophils (%) (Auto) 1 % (0-3) Basophils (%) (Auto) 0 % (0-3) Neutrophils # (Auto) 5.1 x10^3/uL (1.8-7.7) Lymphocytes # (Auto) 1.2 x10^3/uL (1.0-4.8) Monocytes # (Auto) 0.4 x10^3/uL (0.0-1.1) Eosinophils # (Auto) 0.1 x10^3/uL (0.0-0.7) Basophils # (Auto) 0.0 x10^3/uL (0.0-0.2) Sodium Level 142 mmol/L (136-145) Potassium Level 4.5 mmol/L (3.5-5.1) Chloride Level 104 mmol/L (98-107) Carbon Dioxide Level 24 mmol/L (21-32) Anion Gap 14 (6-14) Blood Urea Nitrogen 14 mg/dL (7-20) Creatinine 0.8 mg/dL (0.6-1.0) Estimated GFR (Cockcroft-Gault) 69.7 BUN/Creatinine Ratio 18 (6-20) Glucose Level 205 mg/dL (70-99) Calcium Level 8.9 mg/dL (8.5-10.1) Magnesium Level 1.7 mg/dL (1.8-2.4) Total Bilirubin 0.4 mg/dL (0.2-1.0) Aspartate Amino Transf (AST/SGOT) 24 U/L (15-37) Alanine Aminotransferase (ALT/SGPT) 39 U/L (14-59) Alkaline Phosphatase 78 U/L (46-116) Creatine Kinase 117 U/L (26-192) Troponin I Quantitative < 0.017 ng/mL (0.000-0.055) < 0.017 ng/mL (0.000-0.055) PH-Ass-W-Type Natriuretic Peptide 1952 pg/mL (0-449) Total Protein 6.7 g/dL (6.4-8.2) Albumin 3.6 g/dL (3.4-5.0) Albumin/Globulin Ratio 1.2 (1.0-1.7) Triglycerides Level 125 mg/dL (0-150) Cholesterol Level 155 mg/dL (0-200) LDL Cholesterol, Calculated 93 mg/dL (0-100) VLDL Cholesterol, Calculated 25 mg/dL (0-40) Non-HDL Cholesterol Calculated 118 mg/dL (0-129) HDL Cholesterol 37 mg/dL (40-60) Cholesterol/HDL Ratio 4.2 Thyroid Stimulating Hormone (TSH) 1.416 uIU/mL (0.358-3.74) Urine Collection Type Unknown Urine Color Yellow Urine Clarity Clear Urine pH 5.5 Urine Specific [place] 1.025 Urine Protein Negative mg/dL (NEG-TRACE) Urine Glucose (UA) Negative mg/dL (NEG) Urine Ketones (Stick) Negative mg/dL (NEG) Urine Blood Negative (NEG) Urine Nitrite Negative (NEG) Urine Bilirubin Negative (NEG) Urine Urobilinogen Dipstick 0.2 mg/dL (0.2 mg/dL) Urine Leukocyte Esterase Negative (NEG) Urine RBC Rare /HPF (0-2) Urine WBC Rare /HPF (0-4) Urine Squamous Epithelial Cells Occ /LPF Urine Bacteria 0 /HPF (0-FEW) Urine Hyaline Casts Occasional /HPF Urine Mucus Slight /LPF Test 04/26/19 17:30 Troponin I Quantitative < 0.017 ng/mL (0.000-0.055) Medications Active Scripts Medications Dose Route/Sig Max Daily Dose Days Date Category Proair Hfa Inhaler (Albuterol Sulfate) 8.5 Gm Hfa.aer.ad 2 Puff IH PRN Q4-6HRS PRN 21 04/26/19 Reported Aspir 81 (Aspirin) 81 Mg Tablet.dr 1 Tab PO DAILY 12/01/16 Reported Hydrocodone-Apap 7.5-325 (Hydrocodone Bit/Acetaminophen) 1 Each Tablet 1 Tab PO PRN Q6HRS PRN 12/01/16 Reported Proair Hfa Inhaler (Albuterol Sulfate) 8.5 Gm Hfa.aer.ad 1 Puff INH PRN Q6HRS PRN 10/17/16 Reported Tablet (Pnv Cmb#95/Ferrous Fumarate/Fa) 1 Each Tablet 1 Tab PO DAILY 10/17/16 Reported Calcium + D3 Er Tablet (Calcium Carb & Cit/Vitamin D3) 1 Each Tablet.er 1 Each PO DAILY 10/17/16 Reported Simvastatin 40 Mg Tablet 1 Tab PO QHS 10/17/16 Reported Xanax (Alprazolam) 0.25 Mg Tablet 1 Tab PO TID PRN 10/17/16 Reported Impression . full note dicdtated AECOPD AFIB RVR SMALL EFFUSION' NO PE CHRONIC RML ATLECTASIS SHANELLE WILKERSON MD Apr 26, 2019 18:44
[2019-04-26 19:10] VITALS: BP 183/104
[2019-04-26] MEDS ORDERED: SIMVASTATIN 40 MG TABLET. PO SCH (21:00)
[2019-04-26] MEDS: APIXABAN 5 MG TABLET. PO SCH (22:09)
[2019-04-26] MEDS: methylPREDNISolone SOD SUCC PF 40 MG/ML VIAL. IV SCH (22:09)
[2019-04-26] MEDS: ALPRAZolam 0.25 MG TABLET PO SCH (22:11)
[2019-04-26 23:00] VITALS: BP 127/69
--- NOTE | 2019-04-27 02:12 | CONS ---
DATE OF CONSULTATION: 04/26/2019 ATTENDING PHYSICIAN: Dr. Loomis. REASON FOR CONSULTATION: The patient seen in pulmonary consultation at the request of Dr. Loomis for acute respiratory distress. HISTORY OF PRESENT ILLNESS: The patient is a 78-year-old with underlying COPD, normally sees my partner, Dr. Ramos in the office. She does have a Trelegy metered dose inhaler at home. She has been having periods of increasing shortness of breath over the last 5 months. She basically has periods where she does well, and then she does poorly. She normally would take an anxiolytic, but she states that she has not been very compliant. She denies fever or chills. No productive cough. She normally wears oxygen at home. PAST MEDICAL HISTORY: 1. Chronic respiratory failure, on oxygen supplementation. 2. COPD. 3. Chronic right middle lobe atelectasis, previously seen on CT of the chest in 2017. 4. Depression. 5. Anxiety. 6. Osteoporosis. 7. History of pneumonia. PAST SURGICAL HISTORY: No major surgeries. ALLERGIES: No known drug allergies. REVIEW OF SYSTEMS: CONSTITUTIONAL: No fever or chills. EYES: No change in visual acuity. HENT: No nasal congestion or sore throat. PULMONARY: As indicated above. CARDIOVASCULAR: No chest pain. No pressure. GASTROINTESTINAL: No nausea, vomiting, diarrhea. GENITOURINARY: No dysuria or frequency. MUSCULOSKELETAL: No localized muscle aches or joint pains. SKIN: No new skin rashes. NEUROLOGIC: No headaches, diplopia or blurred vision. CURRENT MEDICATION: List was reviewed. PHYSICAL EXAMINATION: GENERAL: The patient appeared to be in respiratory distress. Sometimes could not complete full sentences, currently on 3 liters of oxygen supplementation. HEENT: Eyes, the sclerae were nonicteric. NECK: Jugular venous distention was not elevated. No lymphadenopathy. CHEST: Full expansion. LUNGS: Poor air flow with expiratory wheeze. CARDIOVASCULAR: Regular rate and rhythm with S1, S2, no S3. ABDOMEN: Soft, nontender, nondistended. EXTREMITIES: No clubbing, cyanosis or edema. LABORATORY DATA: Reviewed. White count was normal. Hemoglobin and hematocrit were noted. Electrolytes were noted. BUN and creatinine normal. BNP was elevated. A CT angiogram was performed. There was no evidence of pulmonary emboli. There were bilateral small pleural effusions, right greater than left. There was evidence of emphysema. There was consolidation of the right middle lobe, stable foci of noncalcified nodular appearing density of the posterior right upper lobe. There were also nonspecific borderline enlarged mediastinal nodes. IMPRESSION: 1. Acute on chronic respiratory failure. 2. Acute on chronic diastolic heart failure. 3. Atrial fibrillation with rapid ventricular response. 4. Small bilateral effusions, thoracentesis is not warranted. 5. Acute exacerbation of chronic obstructive pulmonary disease. 6. Chronic right middle lobe atelectasis, consolidation. 7. Nonspecific borderline mediastinal adenopathy. 8. No evidence of pulmonary embolism, on current CT chest. 9. Gastroesophageal reflux. 10. Anxiety. 11. Depression. PLAN: 1. Cardiology is seeing the patient. She was started on IV Cardizem. 2. Lasix p.r.n. 3. Oxygen supplementation. 4. Continue bronchodilators. 5. Continue anxiolytics. I discussed the above with the daughter and the patient. I do appreciate the privilege in sharing in her care. SHANELLE WILKERSON MD DR: KARUNA/zander JOB#: [id number] / [id number]
[2019-04-27 03:10] VITALS: BP 147/69
[2019-04-27 05:38] LABS: BASO % 1 % (0-3); EOS % 0 % (0-3); HEMATOCRIT 34.9 % (36.0-47.0); HEMOGLOBIN 11.8 g/dL (12.0-15.5); LYMPH # 0.4 x10^3/uL (1.0-4.8); LYMPH % 9 % (24-48); MEAN CORPUSCULAR HEMOGLOBIN 33 pg (25-35); MEAN CORPUSCULAR HGB CONC 34 g/dL (31-37); MEAN CORPUSCULAR VOLUME 97 fL (79-100); MONO % 1 % (0-9); NEUT # 4.1 x10^3/uL (1.8-7.7); NEUT % 90 % (31-73); PLATELET COUNT 262 x10^3/uL (140-400); RED CELL DISTRIBUTION WIDTH 13.1 % (11.5-14.5); WHITE BLOOD COUNT 4.6 x10^3/uL (4.0-11.0)
[2019-04-27 05:50] LABS: CALCIUM 8.9 mg/dL (8.5-10.1); CREATININE 0.7 mg/dL (0.6-1.0); GFR 81.4; POTASSIUM 3.7 mmol/L (3.5-5.1)
[2019-04-27 07:00] VITALS: BP 149/85
[2019-04-27] MEDS ORDERED: HYDROmorphone 2 MG/ML VIAL IV PRN (07:00)
[2019-04-27] MEDS ORDERED: ONDANSETRON PF 4 MG/2 ML VIAL. IV PRN (07:00)
[2019-04-27] MEDS ORDERED: MORPHINE SULFATE 2 MG/ML VIAL. IV PRN (07:00)
[2019-04-27] MEDS ORDERED: LIDOCAINE 2% TOPICAL JELLY 30GM TUBE. TP ONE (07:00)
[2019-04-27] MEDS ORDERED: LIDOCAINE 1% PF 2 ML VIAL. ID PRN (07:00)
[2019-04-27] MEDS ORDERED: PROCHLORPERAZINE 10 MG/2 ML VIAL. IV PRN (07:00)
[2019-04-27] MEDS ORDERED: BENZOCAINE ONE 20% MUCOSAL SPRAY. MM (07:00)
[2019-04-27] MEDS ORDERED: fentaNYL PF VIAL 100 MCG/2 ML VIAL IV PRN ×2 (07:00)
[2019-04-27] MEDS ORDERED: IV RINGERS,LACTATED 1000ML 1,000 ML IV SCH (07:00)
[2019-04-27] MEDS: ALBUTEROL SULFATE 2.5 MG/3 ML NEBU. NEB SCH ×4 (07:41→20:37)
[2019-04-27] MEDS ORDERED: ANTI-COAG MONITOR BY PHARMACY. MC PRN (09:30)
[2019-04-27] MEDS: ALPRAZolam 0.25 MG TABLET PO SCH ×2 (09:50→21:07)
--- NOTE | 2019-04-27 09:59 | PDOC ---
CARDIO Progress Notes Date and Time Date of Service 04/27/2019 Time of Evaluation 0940 Subjective Subjective: No Chest Pain, No Palpitations, Other (SOA better, feels anxious) Vitals Vitals Vital Signs Date Time Temp Pulse Resp B/P (MAP) Pulse Ox O2 Delivery O2 Flow Rate FiO2 04/27/19 07:42 96 Nasal Cannula 3.0 04/27/19 03:10 97.6 102 22 147/69 (95) 97.6 Weight Weight [ ] Input and Output Intake and Output Intake and Output 04/27/19 07:00 Intake Total 350 ml Output Total 2275 ml Balance -1925 ml Intake Oral 350 ml Output Urine Total 2275 ml # Voids 1 Laboratory Labs Laboratory Tests Test 04/26/19 10:09 04/26/19 10:10 04/26/19 13:30 04/26/19 14:10 Prothrombin Time 14.1 SEC (11.7-14.0) Prothromb Time International Ratio 1.1 (0.8-1.1) D-Dimer (Rebecca) 1.85 ug/mlFEU (0.00-0.50) White Blood Count 6.8 x10^3/uL (4.0-11.0) Red Blood Count 3.84 x10^6/uL (3.50-5.40) Hemoglobin 12.4 g/dL (12.0-15.5) Hematocrit 37.7 % (36.0-47.0) Mean Corpuscular Volume 98 fL (79-100) Mean Corpuscular Hemoglobin 32 pg (25-35) Mean Corpuscular Hemoglobin Concent 33 g/dL (31-37) Red Cell Distribution Width 13.2 % (11.5-14.5) Platelet Count 299 x10^3/uL (140-400) Neutrophils (%) (Auto) 76 % (31-73) Lymphocytes (%) (Auto) 17 % (24-48) Monocytes (%) (Auto) 6 % (0-9) Eosinophils (%) (Auto) 1 % (0-3) Basophils (%) (Auto) 0 % (0-3) Neutrophils # (Auto) 5.1 x10^3/uL (1.8-7.7) Lymphocytes # (Auto) 1.2 x10^3/uL (1.0-4.8) Monocytes # (Auto) 0.4 x10^3/uL (0.0-1.1) Eosinophils # (Auto) 0.1 x10^3/uL (0.0-0.7) Basophils # (Auto) 0.0 x10^3/uL (0.0-0.2) Sodium Level 142 mmol/L (136-145) Potassium Level 4.5 mmol/L (3.5-5.1) Chloride Level 104 mmol/L (98-107) Carbon Dioxide Level 24 mmol/L (21-32) Anion Gap 14 (6-14) Blood Urea Nitrogen 14 mg/dL (7-20) Creatinine 0.8 mg/dL (0.6-1.0) Estimated GFR (Cockcroft-Gault) 69.7 BUN/Creatinine Ratio 18 (6-20) Glucose Level 205 mg/dL (70-99) Calcium Level 8.9 mg/dL (8.5-10.1) Magnesium Level 1.7 mg/dL (1.8-2.4) Total Bilirubin 0.4 mg/dL (0.2-1.0) Aspartate Amino Transf (AST/SGOT) 24 U/L (15-37) Alanine Aminotransferase (ALT/SGPT) 39 U/L (14-59) Alkaline Phosphatase 78 U/L (46-116) Creatine Kinase 117 U/L (26-192) Troponin I Quantitative < 0.017 ng/mL (0.000-0.055) < 0.017 ng/mL (0.000-0.055) YJ-Thv-J-Type Natriuretic Peptide 1952 pg/mL (0-449) Total Protein 6.7 g/dL (6.4-8.2) Albumin 3.6 g/dL (3.4-5.0) Albumin/Globulin Ratio 1.2 (1.0-1.7) Triglycerides Level 125 mg/dL (0-150) Cholesterol Level 155 mg/dL (0-200) LDL Cholesterol, Calculated 93 mg/dL (0-100) VLDL Cholesterol, Calculated 25 mg/dL (0-40) Non-HDL Cholesterol Calculated 118 mg/dL (0-129) HDL Cholesterol 37 mg/dL (40-60) Cholesterol/HDL Ratio 4.2 Thyroid Stimulating Hormone (TSH) 1.416 uIU/mL (0.358-3.74) Urine Collection Type Unknown Urine Color Yellow Urine Clarity Clear Urine pH 5.5 Urine Specific [place] 1.025 Urine Protein Negative mg/dL (NEG-TRACE) Urine Glucose (UA) Negative mg/dL (NEG) Urine Ketones (Stick) Negative mg/dL (NEG) Urine Blood Negative (NEG) Urine Nitrite Negative (NEG) Urine Bilirubin Negative (NEG) Urine Urobilinogen Dipstick 0.2 mg/dL (0.2 mg/dL) Urine Leukocyte Esterase Negative (NEG) Urine RBC Rare /HPF (0-2) Urine WBC Rare /HPF (0-4) Urine Squamous Epithelial Cells Occ /LPF Urine Bacteria 0 /HPF (0-FEW) Urine Hyaline Casts Occasional /HPF Urine Mucus Slight /LPF Test 04/26/19 17:30 04/27/19 04:30 Troponin I Quantitative < 0.017 ng/mL (0.000-0.055) White Blood Count 4.6 x10^3/uL (4.0-11.0) Red Blood Count 3.60 x10^6/uL (3.50-5.40) Hemoglobin 11.8 g/dL (12.0-15.5) Hematocrit 34.9 % (36.0-47.0) Mean Corpuscular Volume 97 fL (79-100) Mean Corpuscular Hemoglobin 33 pg (25-35) Mean Corpuscular Hemoglobin Concent 34 g/dL (31-37) Red Cell Distribution Width 13.1 % (11.5-14.5) Platelet Count 262 x10^3/uL (140-400) Neutrophils (%) (Auto) 90 % (31-73) Lymphocytes (%) (Auto) 9 % (24-48) Monocytes (%) (Auto) 1 % (0-9) Eosinophils (%) (Auto) 0 % (0-3) Basophils (%) (Auto) 1 % (0-3) Neutrophils # (Auto) 4.1 x10^3/uL (1.8-7.7) Lymphocytes # (Auto) 0.4 x10^3/uL (1.0-4.8) Monocytes # (Auto) 0.0 x10^3/uL (0.0-1.1) Eosinophils # (Auto) 0.0 x10^3/uL (0.0-0.7) Basophils # (Auto) 0.0 x10^3/uL (0.0-0.2) Sodium Level 142 mmol/L (136-145) Potassium Level 3.7 mmol/L (3.5-5.1) Chloride Level 104 mmol/L (98-107) Carbon Dioxide Level 27 mmol/L (21-32) Anion Gap 11 (6-14) Blood Urea Nitrogen 14 mg/dL (7-20) Creatinine 0.7 mg/dL (0.6-1.0) Estimated GFR (Cockcroft-Gault) 81.4 Glucose Level 189 mg/dL (70-99) Calcium Level 8.9 mg/dL (8.5-10.1) Magnesium Level 2.0 mg/dL (1.8-2.4) Physical Exam HEENT: Neck Supple W Full Motion Chest: Symmetric LUNGS: Other (diminished, diffuse crackles) Heart: irregularly irregular (AFIB RVR) Abdomen: Soft N/T Extremities: No Calf Tenderness, Other (1+ bilateral LE pitting edema) Neurology: alert, oriented, follow commands Assessment Assessment 1. AFIB RVR: new. Remains in the 120s 2. Acute diastolic CHF: induced by above 3. AECOPD: per pulmonary 4. GERD exacerbation 5. Chest pain: multifactorial as above 6. Anxiety 7. HLP Recommendations 1. Continue cardizem drip and will transition this afternoon after noted response to digoxin. Elirustyis..Will plan for outpt cardioversion in 3-4 weeks after sufficient NOAC 2. Lasix therapy and replace K., PPI 3. TTE today CANDI MARX APRN Apr 27, 2019 09:59
[2019-04-27] MEDS ORDERED: DIGOXIN IV 500 MCG/2 ML AMPUL. IV ONE ×2 (10:00→16:00)
[2019-04-27] MEDS ORDERED: POTASSIUM CHLORIDE 20 MEQ TABLET.ER. PO ONE (10:00)
[2019-04-27] MEDS ORDERED: FUROSEMIDE 40 MG/4 ML VIAL. IVP ONE (10:00)
--- NOTE | 2019-04-27 10:00 | PDOC ---
Provider Note Provider Note Pt seen .H&P dictated.#[id number]. JOHN HACKETT MD Apr 27, 2019 10:00
[2019-04-27] MEDS: ASPIRIN ENTERIC COATED 81 MG TABLET.DR. PO SCH (10:18)
[2019-04-27] MEDS: PANTOPRAZOLE 40 MG TABLET.DR. PO SCH (10:18)
[2019-04-27] MEDS: methylPREDNISolone SOD SUCC PF 40 MG/ML VIAL. IV SCH ×2 (10:19→21:07)
[2019-04-27] MEDS: APIXABAN 5 MG TABLET. PO SCH ×2 (10:24→21:07)
[2019-04-27] MEDS ORDERED: LIDOCAINE 2% PF 5 ML VIAL. ONE (10:44)
[2019-04-27] MEDS ORDERED: PHENYLEPHRINE in 0.9% NACL PF 1 MG/10 ML SYRINGE. IV ONE (10:44)
[2019-04-27] MEDS ORDERED: PROPOFOL 20 ML IV ONE (10:44)
[2019-04-27 11:00] VITALS: BP 152/99
--- NOTE | 2019-04-27 11:16 | HP ---
ADMIT DATE: 04/26/2019 LOCATION: 260. REASON FOR ADMISSION TO THE HOSPITAL: 1. COPD with acute exacerbation. 2. Atrial fibrillation with rapid ventricular rate. HISTORY OF PRESENT ILLNESS: The patient is a 78-year-old female with history of chronic COPD, hypertension, anxiety and she was having chest pain with palpitations, was brought to the hospital, found to have atrial fibrillation with rapid ventricular response. The patient was given IV Cardizem and started on Eliquis. The patient is scheduled for cardioversion today. PAST MEDICAL HISTORY: History of COPD, hypertension, hyperlipidemia, anxiety. PAST SURGICAL HISTORY: Lung biopsy in the past, benign. FAMILY HISTORY: Noncontributory. SOCIAL HISTORY: Smoked for at least 40 years, quit 4-5 years ago. ALLERGIES: No known drug allergies. MEDICATIONS AT HOME: The patient was started on Cardizem here. She is on Ventolin, Xanax, Lortab, and Trelegy. She is also on home oxygen. REVIEW OF SYSTEMS: CARDIAC: Palpitations. GASTROINTESTINAL: No nausea or vomiting. NEUROLOGICAL: No weakness. The patient has COPD, cough with wheezing. Rest of the 14 systems was reviewed and negative. PHYSICAL EXAMINATION: GENERAL: The patient is anxious. VITAL SIGNS: Temperature 98, pulse 165, respirations 29, blood pressure 127/76, 97% on 4 liters. HEENT: Head is atraumatic. Pupils equal. Oral cavity: No congestion. NECK: Supple. Thyroid not enlarged. JVD not elevated. CHEST: Symmetrical. CARDIOVASCULAR: S1, S2, tachycardic, irregular. LUNGS: Clear to auscultation. Occasional wheezing. ABDOMEN: Soft, bowel sounds present. EXTERNAL GENITALIA: No Gomez. RECTAL: Deferred. EXTREMITIES: No calf tenderness, no edema. Pulses 1+. NEUROLOGIC: Moving all extremities. No focal deficits noted. LABORATORY DATA: Shows a white count of 7, hemoglobin 12, platelets 299. INR is 1.1. Electrolyte shows sodium 140, potassium 4.5, chloride 104, bicarbonate 24, BUN 14, creatinine 0.8, glucose 205. Magnesium 1.7. LFTs normal. BNP 1952. Troponin was negative. Thyroid 1.4. Cholesterol 155, LDL 93. Urine was negative. Chest x-ray: Mild CHF. Had a CT angiogram of the chest, no PE, bilateral pleural effusions, emphysema, chronic consolidation of the right middle lobe compared to 2017. FINAL IMPRESSION: 1. Atrial fibrillation with rapid ventricular response, new onset. 2. Chronic obstructive pulmonary disease with exacerbation. 3. Diastolic heart failure secondary to atrial fibrillation. 4. Anxiety. 5. Emphysema. 6. Ex-smoker. PLAN: At this time, was admit to hospital, was given Cardizem IV for rate control. She is going to get JOVANI and cardioversion today. Continue Eliquis for anticoagulation. IV Lasix for CHF and IV steroids, Solu-Medrol for bronchospasm and wheezing. Continue maintenance inhalers. JOHN HACKETT MD DR: SHRUTHI/zander JOB#: [id number] / [id number]
[2019-04-27 11:23] LABS: % BANDS 2 % (0-9); % LYMPHS 7 % (24-48); % SEGS 91 % (35-66); PLT ESTIMATE ADEQUATE (ADEQUATE)
--- NOTE | 2019-04-27 11:48 | NUR ---
SS following for discharge planning. SS reviewed pt chart. Pt is from home and is currently requiring oxygen. SS will continue to follow for discharge planning.
--- NOTE | 2019-04-27 13:52 | PDOC ---
PULMONARY PROGRESS NOTES Subjective PT SLEPT WELL LESS SOA NO WHEEZE Vitals Vital Signs Date Time Temp Pulse Resp B/P (MAP) Pulse Ox O2 Delivery O2 Flow Rate FiO2 04/27/19 11:46 96 Nasal Cannula 3.0 04/27/19 11:00 96.4 104 24 152/99 (116) 96.4 ROS: No Nausea, No Chest Pain, No Abdominal Pain, No Increase Cough General: Alert, No acute distress Lungs: Clear Cardiovascular: S1 Abdomen: Soft Neuro Exam: Alert Extremities: No Edema Skin: Warm Labs Laboratory Tests Test 04/26/19 10:09 04/26/19 10:10 04/26/19 13:30 04/26/19 14:10 Prothrombin Time 14.1 SEC (11.7-14.0) Prothromb Time International Ratio 1.1 (0.8-1.1) D-Dimer (Rebecca) 1.85 ug/mlFEU (0.00-0.50) White Blood Count 6.8 x10^3/uL (4.0-11.0) Red Blood Count 3.84 x10^6/uL (3.50-5.40) Hemoglobin 12.4 g/dL (12.0-15.5) Hematocrit 37.7 % (36.0-47.0) Mean Corpuscular Volume 98 fL (79-100) Mean Corpuscular Hemoglobin 32 pg (25-35) Mean Corpuscular Hemoglobin Concent 33 g/dL (31-37) Red Cell Distribution Width 13.2 % (11.5-14.5) Platelet Count 299 x10^3/uL (140-400) Neutrophils (%) (Auto) 76 % (31-73) Lymphocytes (%) (Auto) 17 % (24-48) Monocytes (%) (Auto) 6 % (0-9) Eosinophils (%) (Auto) 1 % (0-3) Basophils (%) (Auto) 0 % (0-3) Neutrophils # (Auto) 5.1 x10^3/uL (1.8-7.7) Lymphocytes # (Auto) 1.2 x10^3/uL (1.0-4.8) Monocytes # (Auto) 0.4 x10^3/uL (0.0-1.1) Eosinophils # (Auto) 0.1 x10^3/uL (0.0-0.7) Basophils # (Auto) 0.0 x10^3/uL (0.0-0.2) Sodium Level 142 mmol/L (136-145) Potassium Level 4.5 mmol/L (3.5-5.1) Chloride Level 104 mmol/L (98-107) Carbon Dioxide Level 24 mmol/L (21-32) Anion Gap 14 (6-14) Blood Urea Nitrogen 14 mg/dL (7-20) Creatinine 0.8 mg/dL (0.6-1.0) Estimated GFR (Cockcroft-Gault) 69.7 BUN/Creatinine Ratio 18 (6-20) Glucose Level 205 mg/dL (70-99) Calcium Level 8.9 mg/dL (8.5-10.1) Magnesium Level 1.7 mg/dL (1.8-2.4) Total Bilirubin 0.4 mg/dL (0.2-1.0) Aspartate Amino Transf (AST/SGOT) 24 U/L (15-37) Alanine Aminotransferase (ALT/SGPT) 39 U/L (14-59) Alkaline Phosphatase 78 U/L (46-116) Creatine Kinase 117 U/L (26-192) Troponin I Quantitative < 0.017 ng/mL (0.000-0.055) < 0.017 ng/mL (0.000-0.055) FT-Tgo-T-Type Natriuretic Peptide 1952 pg/mL (0-449) Total Protein 6.7 g/dL (6.4-8.2) Albumin 3.6 g/dL (3.4-5.0) Albumin/Globulin Ratio 1.2 (1.0-1.7) Triglycerides Level 125 mg/dL (0-150) Cholesterol Level 155 mg/dL (0-200) LDL Cholesterol, Calculated 93 mg/dL (0-100) VLDL Cholesterol, Calculated 25 mg/dL (0-40) Non-HDL Cholesterol Calculated 118 mg/dL (0-129) HDL Cholesterol 37 mg/dL (40-60) Cholesterol/HDL Ratio 4.2 Thyroid Stimulating Hormone (TSH) 1.416 uIU/mL (0.358-3.74) Urine Collection Type Unknown Urine Color Yellow Urine Clarity Clear Urine pH 5.5 Urine Specific [place] 1.025 Urine Protein Negative mg/dL (NEG-TRACE) Urine Glucose (UA) Negative mg/dL (NEG) Urine Ketones (Stick) Negative mg/dL (NEG) Urine Blood Negative (NEG) Urine Nitrite Negative (NEG) Urine Bilirubin Negative (NEG) Urine Urobilinogen Dipstick 0.2 mg/dL (0.2 mg/dL) Urine Leukocyte Esterase Negative (NEG) Urine RBC Rare /HPF (0-2) Urine WBC Rare /HPF (0-4) Urine Squamous Epithelial Cells Occ /LPF Urine Bacteria 0 /HPF (0-FEW) Urine Hyaline Casts Occasional /HPF Urine Mucus Slight /LPF Test 04/26/19 17:30 04/27/19 04:30 Troponin I Quantitative < 0.017 ng/mL (0.000-0.055) White Blood Count 4.6 x10^3/uL (4.0-11.0) Red Blood Count 3.60 x10^6/uL (3.50-5.40) Hemoglobin 11.8 g/dL (12.0-15.5) Hematocrit 34.9 % (36.0-47.0) Mean Corpuscular Volume 97 fL (79-100) Mean Corpuscular Hemoglobin 33 pg (25-35) Mean Corpuscular Hemoglobin Concent 34 g/dL (31-37) Red Cell Distribution Width 13.1 % (11.5-14.5) Platelet Count 262 x10^3/uL (140-400) Neutrophils (%) (Auto) 90 % (31-73) Lymphocytes (%) (Auto) 9 % (24-48) Monocytes (%) (Auto) 1 % (0-9) Eosinophils (%) (Auto) 0 % (0-3) Basophils (%) (Auto) 1 % (0-3) Neutrophils # (Auto) 4.1 x10^3/uL (1.8-7.7) Lymphocytes # (Auto) 0.4 x10^3/uL (1.0-4.8) Monocytes # (Auto) 0.0 x10^3/uL (0.0-1.1) Eosinophils # (Auto) 0.0 x10^3/uL (0.0-0.7) Basophils # (Auto) 0.0 x10^3/uL (0.0-0.2) Segmented Neutrophils % 91 % (35-66) Band Neutrophils % 2 % (0-9) Lymphocytes % 7 % (24-48) Platelet Estimate Adequate (ADEQUATE) Giant Platelets Few Sodium Level 142 mmol/L (136-145) Potassium Level 3.7 mmol/L (3.5-5.1) Chloride Level 104 mmol/L (98-107) Carbon Dioxide Level 27 mmol/L (21-32) Anion Gap 11 (6-14) Blood Urea Nitrogen 14 mg/dL (7-20) Creatinine 0.7 mg/dL (0.6-1.0) Estimated GFR (Cockcroft-Gault) 81.4 Glucose Level 189 mg/dL (70-99) Calcium Level 8.9 mg/dL (8.5-10.1) Magnesium Level 2.0 mg/dL (1.8-2.4) Laboratory Tests Test 04/26/19 14:10 04/26/19 17:30 04/27/19 04:30 Troponin I Quantitative < 0.017 ng/mL (0.000-0.055) < 0.017 ng/mL (0.000-0.055) White Blood Count 4.6 x10^3/uL (4.0-11.0) Red Blood Count 3.60 x10^6/uL (3.50-5.40) Hemoglobin 11.8 g/dL (12.0-15.5) Hematocrit 34.9 % (36.0-47.0) Mean Corpuscular Volume 97 fL (79-100) Mean Corpuscular Hemoglobin 33 pg (25-35) Mean Corpuscular Hemoglobin Concent 34 g/dL (31-37) Red Cell Distribution Width 13.1 % (11.5-14.5) Platelet Count 262 x10^3/uL (140-400) Neutrophils (%) (Auto) 90 % (31-73) Lymphocytes (%) (Auto) 9 % (24-48) Monocytes (%) (Auto) 1 % (0-9) Eosinophils (%) (Auto) 0 % (0-3) Basophils (%) (Auto) 1 % (0-3) Neutrophils # (Auto) 4.1 x10^3/uL (1.8-7.7) Lymphocytes # (Auto) 0.4 x10^3/uL (1.0-4.8) Monocytes # (Auto) 0.0 x10^3/uL (0.0-1.1) Eosinophils # (Auto) 0.0 x10^3/uL (0.0-0.7) Basophils # (Auto) 0.0 x10^3/uL (0.0-0.2) Segmented Neutrophils % 91 % (35-66) Band Neutrophils % 2 % (0-9) Lymphocytes % 7 % (24-48) Platelet Estimate Adequate (ADEQUATE) Giant Platelets Few Sodium Level 142 mmol/L (136-145) Potassium Level 3.7 mmol/L (3.5-5.1) Chloride Level 104 mmol/L (98-107) Carbon Dioxide Level 27 mmol/L (21-32) Anion Gap 11 (6-14) Blood Urea Nitrogen 14 mg/dL (7-20) Creatinine 0.7 mg/dL (0.6-1.0) Estimated GFR (Cockcroft-Gault) 81.4 Glucose Level 189 mg/dL (70-99) Calcium Level 8.9 mg/dL (8.5-10.1) Magnesium Level 2.0 mg/dL (1.8-2.4) Medications Active Scripts Medications Dose Route/Sig Max Daily Dose Days Date Category Proair Hfa Inhaler (Albuterol Sulfate) 8.5 Gm Hfa.aer.ad 2 Puff IH PRN Q4-6HRS PRN 21 04/26/19 Reported Aspir 81 (Aspirin) 81 Mg Tablet.dr 1 Tab PO DAILY 12/01/16 Reported Hydrocodone-Apap 7.5-325 (Hydrocodone Bit/Acetaminophen) 1 Each Tablet 1 Tab PO PRN Q6HRS PRN 12/01/16 Reported Proair Hfa Inhaler (Albuterol Sulfate) 8.5 Gm Hfa.aer.ad 1 Puff INH PRN Q6HRS PRN 10/17/16 Reported Tablet (Pnv Cmb#95/Ferrous Fumarate/Fa) 1 Each Tablet 1 Tab PO DAILY 10/17/16 Reported Calcium + D3 Er Tablet (Calcium Carb & Cit/Vitamin D3) 1 Each Tablet.er 1 Each PO DAILY 10/17/16 Reported Simvastatin 40 Mg Tablet 1 Tab PO QHS 10/17/16 Reported Xanax (Alprazolam) 0.25 Mg Tablet 1 Tab PO TID PRN 10/17/16 Reported Impression . IMPRESSION: 1. Acute on chronic respiratory failure. 2. Acute on chronic diastolic heart failure. 3. Atrial fibrillation with rapid ventricular response. 4. Small bilateral effusions, thoracentesis is not warranted. 5. Acute exacerbation of chronic obstructive pulmonary disease. 6. Chronic right middle lobe atelectasis, consolidation. 7. Nonspecific borderline mediastinal adenopathy. 8. No evidence of pulmonary embolism, on current CT chest. 9. Gastroesophageal reflux. 10. Anxiety. 11. Depression. Plan . DID WELL WITH DIURESE AND RATE CONTROL AGREE WITH CURRENT RX FOLLOW UP WITH DR FLETCHER ONCE DC WILL CONTINUE THE SAME FOR NOW D/W DAUGHTER 04/26 1. Cardiology is seeing the patient. She was started on IV Cardizem. 2. Lasix p.r.n. 3. Oxygen supplementation. 4. Continue bronchodilators. 5. Continue anxiolytics. SHANELLE WILKERSON MD Apr 27, 2019 13:52
--- NOTE | 2019-04-27 14:36 | CARD ---
MR#: [id number] Date of Study: 04/27/2019 Ordering Physician: NOHELIA JOHNSON, Referring Physician: NOHELIA JOHNSON, Tech: Opal Christine APPROVED REPORT EXAM: Two-dimensional and M-mode echocardiogram with Doppler and color Doppler. Other Information Quality : AverageHR: 101bpm INDICATION COPD Dyspnea Atrial Fibrillation Congestive Heart Failure RISK FACTORS Hyperlipidemia 2D DIMENSIONS RVDd2.9 (2.9-3.5cm)Left Atrium(2D)3.5 (1.6-4.0cm) IVSd0.8 (0.7-1.1cm)Aortic Root(2D)3.0 (2.0-3.7cm) LVDd4.5 (3.9-5.9cm)LVOT Diameter2.0 (1.8-2.4cm) PWd1.0 (0.7-1.1cm)LVDs2.9 (2.5-4.0cm) FS (%) 35.7 %SV61.9 ml LVEF(%)65.3 (>50%) Aortic Valve AoV Peak Alberto.116.9cm/sAoV VTI26.2cm AO Peak GR.5.5mmHgLVOT VTI 15.87cm AO Mean GR.4mmHg Mitral Valve MV E Peak Gr.103mmHg Tricuspid Valve TR P. [id number] TR Peak [id number] LEFT VENTRICLE The left ventricle is normal size. There is normal left ventricular wall thickness. The left ventricu lar systolic function is low normal. The Ejection Fraction is 50%. Wall motion consistent with conduc tion abnormality. Tissue Doppler imaging reveals moderate left ventricular diastolic dysfunction. RIGHT VENTRICLE The right ventricle is mildly dilated. There is normal right ventricular wall thickness. The right ve ntricular systolic function is normal. ATRIA The left atrium is mildly dilated. The right atrium is moderately dilated. The interatrial septum is intact with no evidence for an atrial septal defect or patent foramen ovale as noted on 2-D or Dopple r imaging. AORTIC VALVE The aortic valve is normal in structure and function. Doppler and Color Flow revealed no significant aortic regurgitation. There is no significant aortic valvular stenosis. MITRAL VALVE The mitral valve is normal in structure and function. There is no evidence of mitral valve prolapse. There is no mitral valve stenosis. Doppler and Color-flow revealed trace to mild mitral regurgitation . TRICUSPID VALVE The tricuspid valve is normal in structure and function. Doppler and Color Flow revealed trace to mil d tricuspid regurgitation with an estimated PAP of 52 mmHg. There is no tricuspid valve stenosis. PULMONIC VALVE Doppler and Color Flow revealed trace pulmonic valvular regurgitation. There is no pulmonic valvular stenosis. GREAT VESSELS The aortic root is normal in size. The ascending aorta is normal in size. The IVC is dilated and maddie apses <50% with inspiration. PERICARDIAL EFFUSION There is no evidence of significant pericardial effusion. Critical Notification Critical Value: No <Conclusion> The left ventricular systolic function is low normal. The Ejection Fraction is 50%. Wall motion consistent with conduction abnormality. Doppler and Color Flow revealed trace to mild tricuspid regurgitation with an estimated PAP of 52 mmH g. The IVC is dilated and collapses <50% with inspiration. Signed by : Willam Rodriguez, Electronically Approved : 04/27/2019 14:35:34
[2019-04-27] MEDS: ALPRAZolam 0.25 MG TABLET PO PRN (14:41)
[2019-04-27 15:00] VITALS: BP 151/62
[2019-04-27] MEDS: HYDROcodone/APAP 7.5/325MG 1 TAB TABLET PO PRN (16:19)
[2019-04-27 19:40] VITALS: BP 137/89
[2019-04-27] MEDS: ATORVASTATIN CALCIUM 20 MG TABLET PO SCH (21:09)
[2019-04-27] MEDS: LIDOCAINE (700MG/PATCH) PATCH. TD SCH (21:09)
[2019-04-27 23:43] VITALS: BP 128/73
[2019-04-28 01:08] LABS: HEMOGLOBIN A1C 5.9 % (4.8-5.6)
[2019-04-28 03:41] VITALS: BP 138/68
[2019-04-28 07:31] VITALS: BP 148/90
[2019-04-28] MEDS: ALBUTEROL SULFATE 2.5 MG/3 ML NEBU. NEB SCH (07:34)
--- NOTE | 2019-04-28 07:45 | PDOC ---
PULMONARY PROGRESS NOTES Subjective sob better, on 02, not on home 02, has occ cough, used her trelogy Vitals Vital Signs Date Time Temp Pulse Resp B/P (MAP) Pulse Ox O2 Delivery O2 Flow Rate FiO2 04/28/19 07:34 95 Nasal Cannula 3.0 04/28/19 07:31 98.0 108 20 148/90 (109) 98.0 ROS: No Nausea, No Chest Pain, No Abdominal Pain, No Increase Cough General: Alert, No acute distress Lungs: Crackles, Other Cardiovascular: Other (irreg tachy) Abdomen: Soft Neuro Exam: Alert Extremities: No Edema Skin: Warm Labs Laboratory Tests Test 04/26/19 10:09 04/26/19 10:10 04/26/19 13:30 04/26/19 14:10 Prothrombin Time 14.1 SEC (11.7-14.0) Prothromb Time International Ratio 1.1 (0.8-1.1) D-Dimer (Rebecca) 1.85 ug/mlFEU (0.00-0.50) White Blood Count 6.8 x10^3/uL (4.0-11.0) Red Blood Count 3.84 x10^6/uL (3.50-5.40) Hemoglobin 12.4 g/dL (12.0-15.5) Hematocrit 37.7 % (36.0-47.0) Mean Corpuscular Volume 98 fL (79-100) Mean Corpuscular Hemoglobin 32 pg (25-35) Mean Corpuscular Hemoglobin Concent 33 g/dL (31-37) Red Cell Distribution Width 13.2 % (11.5-14.5) Platelet Count 299 x10^3/uL (140-400) Neutrophils (%) (Auto) 76 % (31-73) Lymphocytes (%) (Auto) 17 % (24-48) Monocytes (%) (Auto) 6 % (0-9) Eosinophils (%) (Auto) 1 % (0-3) Basophils (%) (Auto) 0 % (0-3) Neutrophils # (Auto) 5.1 x10^3/uL (1.8-7.7) Lymphocytes # (Auto) 1.2 x10^3/uL (1.0-4.8) Monocytes # (Auto) 0.4 x10^3/uL (0.0-1.1) Eosinophils # (Auto) 0.1 x10^3/uL (0.0-0.7) Basophils # (Auto) 0.0 x10^3/uL (0.0-0.2) Sodium Level 142 mmol/L (136-145) Potassium Level 4.5 mmol/L (3.5-5.1) Chloride Level 104 mmol/L (98-107) Carbon Dioxide Level 24 mmol/L (21-32) Anion Gap 14 (6-14) Blood Urea Nitrogen 14 mg/dL (7-20) Creatinine 0.8 mg/dL (0.6-1.0) Estimated GFR (Cockcroft-Gault) 69.7 BUN/Creatinine Ratio 18 (6-20) Glucose Level 205 mg/dL (70-99) Calcium Level 8.9 mg/dL (8.5-10.1) Magnesium Level 1.7 mg/dL (1.8-2.4) Total Bilirubin 0.4 mg/dL (0.2-1.0) Aspartate Amino Transf (AST/SGOT) 24 U/L (15-37) Alanine Aminotransferase (ALT/SGPT) 39 U/L (14-59) Alkaline Phosphatase 78 U/L (46-116) Creatine Kinase 117 U/L (26-192) Troponin I Quantitative < 0.017 ng/mL (0.000-0.055) < 0.017 ng/mL (0.000-0.055) SA-Xpv-F-Type Natriuretic Peptide 1952 pg/mL (0-449) Total Protein 6.7 g/dL (6.4-8.2) Albumin 3.6 g/dL (3.4-5.0) Albumin/Globulin Ratio 1.2 (1.0-1.7) Triglycerides Level 125 mg/dL (0-150) Cholesterol Level 155 mg/dL (0-200) LDL Cholesterol, Calculated 93 mg/dL (0-100) VLDL Cholesterol, Calculated 25 mg/dL (0-40) Non-HDL Cholesterol Calculated 118 mg/dL (0-129) HDL Cholesterol 37 mg/dL (40-60) Cholesterol/HDL Ratio 4.2 Thyroid Stimulating Hormone (TSH) 1.416 uIU/mL (0.358-3.74) Urine Collection Type Unknown Urine Color Yellow Urine Clarity Clear Urine pH 5.5 Urine Specific [place] 1.025 Urine Protein Negative mg/dL (NEG-TRACE) Urine Glucose (UA) Negative mg/dL (NEG) Urine Ketones (Stick) Negative mg/dL (NEG) Urine Blood Negative (NEG) Urine Nitrite Negative (NEG) Urine Bilirubin Negative (NEG) Urine Urobilinogen Dipstick 0.2 mg/dL (0.2 mg/dL) Urine Leukocyte Esterase Negative (NEG) Urine RBC Rare /HPF (0-2) Urine WBC Rare /HPF (0-4) Urine Squamous Epithelial Cells Occ /LPF Urine Bacteria 0 /HPF (0-FEW) Urine Hyaline Casts Occasional /HPF Urine Mucus Slight /LPF Test 04/26/19 17:30 04/27/19 04:30 Troponin I Quantitative < 0.017 ng/mL (0.000-0.055) White Blood Count 4.6 x10^3/uL (4.0-11.0) Red Blood Count 3.60 x10^6/uL (3.50-5.40) Hemoglobin 11.8 g/dL (12.0-15.5) Hematocrit 34.9 % (36.0-47.0) Mean Corpuscular Volume 97 fL (79-100) Mean Corpuscular Hemoglobin 33 pg (25-35) Mean Corpuscular Hemoglobin Concent 34 g/dL (31-37) Red Cell Distribution Width 13.1 % (11.5-14.5) Platelet Count 262 x10^3/uL (140-400) Neutrophils (%) (Auto) 90 % (31-73) Lymphocytes (%) (Auto) 9 % (24-48) Monocytes (%) (Auto) 1 % (0-9) Eosinophils (%) (Auto) 0 % (0-3) Basophils (%) (Auto) 1 % (0-3) Neutrophils # (Auto) 4.1 x10^3/uL (1.8-7.7) Lymphocytes # (Auto) 0.4 x10^3/uL (1.0-4.8) Monocytes # (Auto) 0.0 x10^3/uL (0.0-1.1) Eosinophils # (Auto) 0.0 x10^3/uL (0.0-0.7) Basophils # (Auto) 0.0 x10^3/uL (0.0-0.2) Segmented Neutrophils % 91 % (35-66) Band Neutrophils % 2 % (0-9) Lymphocytes % 7 % (24-48) Platelet Estimate Adequate (ADEQUATE) Giant Platelets Few Sodium Level 142 mmol/L (136-145) Potassium Level 3.7 mmol/L (3.5-5.1) Chloride Level 104 mmol/L (98-107) Carbon Dioxide Level 27 mmol/L (21-32) Anion Gap 11 (6-14) Blood Urea Nitrogen 14 mg/dL (7-20) Creatinine 0.7 mg/dL (0.6-1.0) Estimated GFR (Cockcroft-Gault) 81.4 Glucose Level 189 mg/dL (70-99) Hemoglobin A1c 5.9 % (4.8-5.6) Calcium Level 8.9 mg/dL (8.5-10.1) Magnesium Level 2.0 mg/dL (1.8-2.4) Medications Active Scripts Medications Dose Route/Sig Max Daily Dose Days Date Category Proair Hfa Inhaler (Albuterol Sulfate) 8.5 Gm Hfa.aer.ad 2 Puff IH PRN Q4-6HRS PRN 21 04/26/19 Reported Aspir 81 (Aspirin) 81 Mg Tablet.dr 1 Tab PO DAILY 12/01/16 Reported Hydrocodone-Apap 7.5-325 (Hydrocodone Bit/Acetaminophen) 1 Each Tablet 1 Tab PO PRN Q6HRS PRN 12/01/16 Reported Proair Hfa Inhaler (Albuterol Sulfate) 8.5 Gm Hfa.aer.ad 1 Puff INH PRN Q6HRS PRN 10/17/16 Reported Tablet (Pnv Cmb#95/Ferrous Fumarate/Fa) 1 Each Tablet 1 Tab PO DAILY 10/17/16 Reported Calcium + D3 Er Tablet (Calcium Carb & Cit/Vitamin D3) 1 Each Tablet.er 1 Each PO DAILY 10/17/16 Reported Simvastatin 40 Mg Tablet 1 Tab PO QHS 10/17/16 Reported Xanax (Alprazolam) 0.25 Mg Tablet 1 Tab PO TID PRN 10/17/16 Reported Impression . IMPRESSION: 1. Acute on chronic respiratory failure. 2. Acute on chronic diastolic heart failure. 3. Atrial fibrillation with rapid ventricular response. 4. Small bilateral effusions, thoracentesis is not warranted. 5. Acute exacerbation of chronic obstructive pulmonary disease. 6. Chronic right middle lobe atelectasis, consolidation. 7. Nonspecific borderline mediastinal adenopathy. 8. No evidence of pulmonary embolism, on current CT chest. 9. Gastroesophageal reflux. 10. Anxiety. 11. Depression. Plan . 1. Cardiology on case, on Cardizem po. 2. Lasix p.r.n. 3. Oxygen supplementation. 4. Continue bronchodilators. still tachy, will change alb to atrovent only 5. Continue anxiolytics. 6. change solumedrol to 40 bid discussed w pt, rn FOLLOW UP WITH KARIN MARCUM DC, MD Apr 28, 2019 07:45
[2019-04-28] MEDS: PANTOPRAZOLE 40 MG TABLET.DR. PO SCH (09:27)
[2019-04-28] MEDS: ALPRAZolam 0.25 MG TABLET PO SCH ×2 (09:27→20:56)
[2019-04-28] MEDS: methylPREDNISolone SOD SUCC PF 40 MG/ML VIAL. IV SCH ×2 (09:29→21:00)
[2019-04-28] MEDS: APIXABAN 5 MG TABLET. PO SCH ×2 (09:29→20:56)
[2019-04-28] MEDS: ASPIRIN ENTERIC COATED 81 MG TABLET.DR. PO SCH (09:30)
[2019-04-28] MEDS: LIDOCAINE (700MG/PATCH) PATCH. TD SCH (09:31)
[2019-04-28] MEDS: HYDROcodone/APAP 7.5/325MG 1 TAB TABLET PO PRN (09:46)
--- NOTE | 2019-04-28 10:26 | PDOC ---
IM PROGRESS NOTES- Subjective Subjective Complaints of cough and congestion and dyspnea. Objective Vitals/I&O Vital Signs Date Time Temp Pulse Resp B/P (MAP) Pulse Ox O2 Delivery O2 Flow Rate FiO2 04/28/19 09:46 95 Nasal Cannula 3.0 04/28/19 09:28 94 148/90 04/28/19 07:31 98.0 20 98.0 I & O 04/27/19 04/27/19 04/28/19 15:00 23:00 07:00 Intake Total 300 ml 200 ml Output Total 450 ml Balance -450 ml 300 ml 200 ml Physical Exam Physical Exam General appearance - alert,ill appearing, and in mild distress and oriented to person, place, and time Mental Status - alert, oriented to person, place, and time, affect appropriate to mood Head - normal Chest -bilateral wheezing Heart - S1 and S2 irregular Abdomen - soft, nontender, Musculoskeletal - no muscular tenderness noted Extremities - no pedal edema Skin - warm and dry Meds Current Medications Medications (Trade) Dose Ordered Sig/Bert Route PRN Reason Start Time Stop Time Status Last Admin Dose Admin Diltiazem HCl (Cardizem 24hr Cd) 180 mg DAILY PO 04/27/19 14:00 04/27/19 20:00 DC 04/27/19 14:33 Atorvastatin Calcium (Lipitor) 20 mg QHS PO 04/27/19 21:00 04/27/19 21:09 Digoxin (Lanoxin) 125 mcg 1X ONCE IV 04/27/19 16:00 04/27/19 16:03 DC 04/27/19 16:13 Lidocaine (Lidoderm) 2 patch DAILY TD 04/27/19 20:00 04/28/19 09:31 Diltiazem HCl (Cardizem 24hr Cd) 240 mg DAILY PO 04/28/19 09:00 04/28/19 09:28 Methylprednisolone Sodium Succinate (SOLU-Medrol 40MG VIAL) 40 mg BID IV 04/28/19 09:00 04/28/19 09:29 Assessment Assessment 1. Atrial fibrillation with rapid ventricular response, new onset. 2. Chronic obstructive pulmonary disease with exacerbation. 3. Diastolic heart failure secondary to atrial fibrillation. 4. Anxiety. 5. Emphysema. 6. Ex-smoker. PLAN: At this time, was admit to hospital, was given Cardizem IV for rate control. She is going to get JOVANI and cardioversion today. Continue Eliquis for anticoagulation. IV Lasix for CHF and IV steroids, Solu-Medrol for bronchospasm and wheezing. Continue maintenance inhalers. Decrease IV Solu-Medrol to 40 mg twice daily. New Onset Atrial fibrillation- continue Cardizem. Continue Eliquis. Anxiety -continue Xanax. This will also improve with decreasing steroids. Exacerbation of COPD- improving. This time the symptoms are more likely due to new onset atrial fibrillation. Condition treatment discussed with the patient and the family. Plan Plan For more details regarding further plans, please refer to the orders. PATTY MCKEON MD Apr 28, 2019 10:26
[2019-04-28 10:33] VITALS: BP 180/81
[2019-04-28] MEDS: NON FORMULARY ITEM INH SCH (14:00)
[2019-04-28 14:33] VITALS: BP 137/60
[2019-04-28] MEDS: ALBUTEROL SULFATE 2.5 MG/3 ML NEBU. NEB PRN (14:37)
[2019-04-28 19:00] VITALS: BP 128/72
[2019-04-28] MEDS: ATORVASTATIN CALCIUM 20 MG TABLET PO SCH (20:56)
[2019-04-28] MEDS ORDERED: PATCH REMOVAL. MC SCH (21:00)
[2019-04-28 23:10] VITALS: BP 139/85
[2019-04-29 03:12] VITALS: BP 144/72
[2019-04-29 07:27] VITALS: BP 147/99
--- NOTE | 2019-04-29 08:26 | PDOC ---
PULMONARY PROGRESS NOTES Subjective sob better, on 02, not on home 02, has occ cough, on trelogy at home Vitals Vital Signs Date Time Temp Pulse Resp B/P (MAP) Pulse Ox O2 Delivery O2 Flow Rate FiO2 04/29/19 07:27 97.5 84 20 147/99 (115) 96 Nasal Cannula 97.5 04/28/19 20:28 3.0 ROS: No Nausea, No Chest Pain, No Abdominal Pain, No Increase Cough General: Alert, No acute distress Lungs: Crackles, Other Cardiovascular: Other (irreg irreg) Abdomen: Soft, Non-tender Neuro Exam: Alert Extremities: No Edema Skin: Warm Medications Active Scripts Medications Dose Route/Sig Max Daily Dose Days Date Category Proair Hfa Inhaler (Albuterol Sulfate) 8.5 Gm Hfa.aer.ad 2 Puff IH PRN Q4-6HRS PRN 21 04/26/19 Reported Aspir 81 (Aspirin) 81 Mg Tablet.dr 1 Tab PO DAILY 12/01/16 Reported Hydrocodone-Apap 7.5-325 (Hydrocodone Bit/Acetaminophen) 1 Each Tablet 1 Tab PO PRN Q6HRS PRN 12/01/16 Reported Proair Hfa Inhaler (Albuterol Sulfate) 8.5 Gm Hfa.aer.ad 1 Puff INH PRN Q6HRS PRN 10/17/16 Reported Tablet (Pnv Cmb#95/Ferrous Fumarate/Fa) 1 Each Tablet 1 Tab PO DAILY 10/17/16 Reported Calcium + D3 Er Tablet (Calcium Carb & Cit/Vitamin D3) 1 Each Tablet.er 1 Each PO DAILY 10/17/16 Reported Simvastatin 40 Mg Tablet 1 Tab PO QHS 10/17/16 Reported Xanax (Alprazolam) 0.25 Mg Tablet 1 Tab PO TID PRN 10/17/16 Reported Impression . IMPRESSION: 1. Acute on chronic respiratory failure. 2. Acute on chronic diastolic heart failure. 3. Atrial fibrillation with rapid ventricular response. 4. Small bilateral effusions, thoracentesis is not warranted. 5. Acute exacerbation of chronic obstructive pulmonary disease. 6. Chronic right middle lobe atelectasis, consolidation. 7. Nonspecific borderline mediastinal adenopathy. 8. No evidence of pulmonary embolism, on current CT chest. 9. Gastroesophageal reflux. 10. Anxiety. 11. Depression. Plan . 1. Cardiology on case, on Cardizem po. hr better controlled 2. Lasix p.r.n. 3. Oxygen supplementation. 6 min walk at DC 4. Continue bronchodilators. cont atrovent only, no alb, hr better controlled 5. Continue anxiolytics. 6. change solumedrol to prednisone 40 mg daily w taper discussed w pt, rn FOLLOW UP WITH DR FLETCHER ONCE DC KARIN BATISTA MD Apr 29, 2019 08:26
[2019-04-29] MEDS: NON FORMULARY ITEM INH SCH (08:32)
[2019-04-29] MEDS: ASPIRIN ENTERIC COATED 81 MG TABLET.DR. PO SCH (08:33)
[2019-04-29] MEDS: ALPRAZolam 0.25 MG TABLET PO SCH (08:33)
[2019-04-29] MEDS: PANTOPRAZOLE 40 MG TABLET.DR. PO SCH (08:33)
[2019-04-29] MEDS: APIXABAN 5 MG TABLET. PO SCH (08:33)
[2019-04-29] MEDS: LIDOCAINE (700MG/PATCH) PATCH. TD SCH (08:37)
[2019-04-29] MEDS ORDERED: predniSONE 20 MG TABLET PO SCH (09:00)
[2019-04-29] MEDS: INSULIN LISPRO 300 UNITS/3 ML VIAL. SQ SCH ×2 (09:00→12:43)
[2019-04-29 10:11] VITALS: BP 145/77
[2019-04-29] MEDS ORDERED: APIX5TAB PO (10:14)
[2019-04-29] MEDS ORDERED: PRED-220 PO (10:14)
[2019-04-29] MEDS ORDERED: DILT240C33 PO (10:14)
--- NOTE | 2019-04-29 10:16 | DISCH ---
DISCHARGE INSTRUCTIONS Condition on Discharge Condition on Discharge: Stable Activity After Discharge Activity Instructions for Disc: Activity as tolerated Weight Bearing Status after Di: No restrictions Diet after Discharge Diet after Discharge: Cardiac Diet Texture: Regular Liquid Texture: Thin Liquid Swallowing Supervision: None needed Checks after Discharge Checks after discharge: Check blood press - daily Contacting the [facility] after DC Call your doctor for: Concerns you may have Follow-Up Follow up with: Dr. Loomis in 5 days PATTY MCKEON MD Apr 29, 2019 10:16
--- NOTE | 2019-04-29 10:20 | PDOC ---
IM PROGRESS NOTES- Subjective Subjective Dyspnea is better. Objective Vitals/I&O Vital Signs Date Time Temp Pulse Resp B/P (MAP) Pulse Ox O2 Delivery O2 Flow Rate FiO2 04/29/19 10:11 97.5 96 20 145/77 (99) 97 Nasal Cannula 97.5 04/29/19 07:52 3.0 I & O 04/28/19 04/28/19 04/29/19 15:00 23:00 07:00 Intake Total 850 ml Output Total 500 ml 0 ml Balance -500 ml 850 ml 0 ml Physical Exam Physical Exam General appearance - alert,ill appearing, and in no distress and oriented to person, place, and time Mental Status - alert, oriented to person, place, and time, anxiety is improving Head - normal Chest -clear with decreased breath sounds at bases Heart - S1 and S2 irregular Abdomen - soft, nontender, Musculoskeletal - no muscular tenderness noted Extremities - no pedal edema Skin - warm and dry Meds Current Medications Medications (Trade) Dose Ordered Sig/Bert Route PRN Reason Start Time Stop Time Status Last Admin Dose Admin Miscellaneous (Lidoderm Patch Removal) 1 ea QHS MC 04/28/19 21:00 04/28/19 21:00 Non-Formulary Medication 1 ea DAILY INH 04/28/19 14:00 04/29/19 08:32 Prednisone (Prednisone) 40 mg DAILY PO 04/29/19 09:00 04/29/19 08:37 Assessment Assessment 1. Atrial fibrillation with rapid ventricular response, new onset. 2. Chronic obstructive pulmonary disease with exacerbation. 3. Diastolic heart failure secondary to atrial fibrillation. 4. Anxiety. 5. Emphysema. 6. Ex-smoker. PLAN: At this time, was admit to hospital, was given Cardizem IV for rate control. She is going to get JOVANI and cardioversion today. Continue Eliquis for anticoagulation. IV Lasix for CHF and IV steroids, Solu-Medrol for bronchospasm and wheezing. Continue maintenance inhalers. . New Onset Atrial fibrillation- continue Cardizem. Continue Eliquis. Echocardiogram showed ejection fraction of 50% and the PA pressure of 52. Anxiety -continue Xanax. This will also improve with decreasing steroids. Exacerbation of COPD- improving. This time the symptoms are more likely due to new onset atrial fibrillation. In terms of much better. Steroids are causing anxiety and increased blood sugar. I'll taper steroids. IV steroids have been stopped and we will discharge her with prednisone 30 mg daily for 2 days, 20 mg daily for 2 days and then 10 mg daily for 2 days. Clinically she is much better. She wants to go home today. 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 I do believe that the cardioversion was being planned as outpatient in few weeks if she does not convert by then. Contin ue Eliquis 5 mg twice daily. Follow-up with Dr. Loomis in 5 days. Discharge management 35 minutes. Plan Plan For more details regarding further plans, please refer to the orders. PATTY MCKEON MD Apr 29, 2019 10:20
[2019-04-29] MEDS: ALBUTEROL SULFATE 2.5 MG/3 ML NEBU. NEB PRN (11:00)
[2019-04-29] MEDS ORDERED: IPRATROPIUM BROMIDE 0.5 MG/2.5 ML NEBU. NEB SCH (12:00)
[2019-04-29] MEDS: ALPRAZolam 0.25 MG TABLET PO PRN (13:54)
--- NOTE | 2019-04-29 14:10 | NUR ---
Discharge Note: CHRISS MUKHERJEE Discharge instructions and discharge home medications reviewed with Patient and a copy given. All questions have been answered and understanding verbalized. Discharge instructions, scripts and handouts were given Discontinued lines and tele Patient discharged to Home with family via wheelchair.
--- NOTE | 2019-04-30 20:42 | PDOC ---
Provider Note Provider Note Discharge summary dictated.#[id number]. JOHN HACKETT MD Apr 30, 2019 20:42
--- NOTE | 2019-04-30 23:32 | DS ---
DATE OF DISCHARGE: 04/29/2019 REASON FOR ADMISSION TO THE HOSPITAL: 1. New onset of atrial fibrillation with rapid ventricular response. 2. Diastolic heart failure. 3. Chronic obstructive pulmonary disease with acute exacerbation. CONSULTATION: 1. Dr. Asher. 2. Dr. Ely. PROCEDURES DONE: 1. Echocardiogram. 2. CT chest. COMPLICATIONS NOTED: None. HOSPITAL COURSE: The patient is a 78-year-old female with chronic COPD, anxiety, came in with shortness of breath with palpitations and pain in the chest. Cardiac enzymes negative for [place]. She was found to be in AFib with RVR. The patient was given Cardizem IV, controlled heart rate, she was like 150s-160s. She was started on Eliquis for anticoagulation. The patient's rate was under control. The patient's echocardiogram shows 50% ejection fraction, PA pressure was high at 52. It was felt that she needs to be anticoagulated for 4 weeks and bring her back for cardioversion. The patient was given IV Solu-Medrol for bronchospasm. There is slight pleural effusion, was thought secondary to congestive heart failure from atrial fibrillation, was given Lasix and condition improved. In the whole, the patient's condition improved. She was discharged. FINAL DIAGNOSES: 1. New onset of atrial fibrillation with rapid ventricular response. 2. Congestive heart failure, diastolic, secondary to atrial fibrillation. 3. Chronic obstructive pulmonary disease with emphysema. 4. Chronic obstructive pulmonary disease with acute exacerbation. 5. Anxiety. 6. Hypertension. 7. Hyperlipidemia. DISPOSITION: Home. DISCHARGE MEDICATIONS: See [facility] for discharge medications. PLAN: Plan is to continue anticoagulation with Eliquis for 4 weeks, bring her back for cardioversion in 4 weeks and continue Cardizem for rate control. Tapering dose of prednisone. JOHN HACKETT MD DR: SHRUTHI/zander JOB#: [id number] / [id number]
== END 2019-04-29 14:25 | disposition home or self-care (01) | DRG 308 ==
LOC: ER 10:02 → 2 SOUTH 10:21
PROVIDERS: ADMIT Internal Medicine; ATTEND Internal Medicine
DX: I48.91 Unspecified atrial fibrillation (principal); J96.20 Acute and chronic respiratory failure, unspecified whether with hypoxia or hypercapnia; I50.33 Acute on chronic diastolic (congestive) heart failure; J98.11 Atelectasis; J91.8 Pleural effusion in other conditions classified elsewhere; I11.0 Hypertensive heart disease with heart failure; E78.5 Hyperlipidemia, unspecified; E83.42 Hypomagnesemia; F32.9 Major depressive disorder, single episode, unspecified; F41.0 Panic disorder [episodic paroxysmal anxiety]; J43.9 Emphysema, unspecified; K21.9 Gastro-esophageal reflux disease without esophagitis; M81.0 Age-related osteoporosis without current pathological fracture; Z79.01 Long term (current) use of anticoagulants; Z87.01 Personal history of pneumonia (recurrent); Z87.891 Personal history of nicotine dependence; Z99.81 Dependence on supplemental oxygen; M19.90 Unspecified osteoarthritis, unspecified site; R73.9 Hyperglycemia, unspecified; R59.0 Localized enlarged lymph nodes
CPT/HCPCS: 36415; 71045; 71275; 80048; 80053; 80061; 81001; 82550; 82962; 83036; 83735; 83880; 84443; 84484; 85007; 85025; 85379; 85610; 93005; 93306; 94618; 94640; 94760; 96365; 96376; J1160; J1815; J1940; J2001; J2060; J2370; J2704; J2920; J3475; J3490; J7030; J7512; J7613; Q9967; 99291-25; G0378